=== PATIENT | female | born 1935 | race Hispanic/Latino ===

== ENCOUNTER 2019-12-02 11:24 | Inpatient (IN) | payer MEDICARE, SELFPAY ==
[~2019-12-02] VITALS: Ht 157.5 cm; Wt 41.9 kg
[~2019-12-02 11:24] MED LIST: ATORVASTATIN CA10 MG PO; COUMADIN1 MG PO; FUROSEMIDE40 MG PO; KLOR-CON M2020 MEQ PO; LANOXIN125 MCG PO; LANOXIN250 MCG PO; LORATADINE10 MG PO; METOPROLOL TART25 MG PO; NITRO-DUR1 EAC1 TD; NORVASC10 MG PO; VASOTEC5 MG PO; VITAMIN B-121000 MCG PO
--- OUTSIDE RECORDS SUMMARY | 2019-12-02 11:28 | XMS REPORT ---
Author Author [facility] t Organization [facility] Address [address] [place] [id number] Phone Unavailable Care Team Providers Care Esthetic Dermatologist Name Role Phone Be CAVAZOS, Lake PCP Kaveh DAVIS, John Mooney Attphys Unavailabl e Be AGENCY CASHIER, Lake Attphys Booker STONER, Thien Sin Attphys Migel STONER, Liseth Attphys Agustin Lucia MD, A Chano Attphys Stacy AGENCY CASHIER, G Myra Attphys Payers Payer Name Policy Type Policy Number Effective Date Expiration Date [place] [facility] [employer] xxxx2019-03/13/[id number] [place] [address] xxxxxxx 2019 00:00:00 03-13 23:59:59 [facility] Problems Condition Name Condition Details Condition Category Status Onset Date Resolution Date Last Treatment Date Treating Clinician Comments Source Esophagitis, erosive Esophagitis, erosive Disease Active 00:00:00 [facility] Abdominal bloating Abdominal bloating Disease Active 2017-01-15 00:00:0 0 [facility] H. pylori infection H. pylori infection Disease Active 2016-11-29 00:00 :00 [facility] Need for zoster vaccination Need for zoster vaccination Disease Active 2016-11-29 00:00:00 [facility] Acute diastolic CHF (congestive heart failure), NYHA c lass 2 Acute diastolic CHF (congestive heart failure), NYHA class 2 Disease Active 2016-11-24 00:00: 00 [facility] Bronchitis Bronchitis Disease Active 2016-11-15 00:00:00 [facility] GI bleed GI bleed Disease Active 2016-10-31 00:00:00 [facility] Hemorrhagic shock Hemorrhagic shock Disease Active 2016-10-03 00:00:00 [facility] Wheel chair as ambulatory aid Wheel chair as ambulatory aid Disease Active 2015-12-06 00:00:00 [facility] minoh Post-polypectomy bleeding Post-polypectomy bleeding Disease Ac tive 2015-11-17 00:00:00 [facility] Rectal/anal hemorrhage Rectal/anal hemorrhage Disease Active 2015-11-15 00:00:00 [facility] Lower GI bleed Lower GI bleed Disease Active 2015-11-14 00:00:00 [facility] Acute respiratory failure with hypoxia Acute respiratory vinod lure with hypoxia Disease Active 2015-07-16 00:00:00 [facility] Anemia Anemia Disease Active 2015-07-16 00:00:00 [facility] Hematuria Hematuria Disease Active 2015-07-16 00:00:00 [facility] S/P coronary angiogram S/P coronary angiogram Disease Active 2015-06-29 00:00:00 [facility] BV (bacterial vaginosis) BV (bacterial vaginosis) Disease Acti ve 2015-01-27 00:00:00 [facility] Acute diastolic CHF (congestive heart failure) Acute d iastolic CHF (congestive heart failure) Disease Active 2014-02-21 00:00:00 [facility] Hypertension Hypertension Disease Active 2014-02-21 00:00:00 [facility] Warfarin anticoagulation Warfarin anticoagulation Disease Acti ve 2014-02-21 00:00:00 [facility] Elevated troponin Elevated troponin Disease Active 2014-02-21 00:00:00 [facility] CAD (coronary artery disease) CAD (coronary artery disease) Disease Active 2014-02-20 00:00:00 [facility] Chest pain Chest pain Disease Active 2014-02-19 00:00:00 [facility] Cough Cough Disease Active 2014-02-19 00:00:00 [facility] HLD (hyperlipidemia) HLD (hyperlipidemia) Disease Active 00:00:00 [facility] Atrial fibrillation Atrial fibrillation Disease Active 2014-02-02 00:00 :00 [facility] Anticoagulation excessive Anticoagulation excessive Disease Ac tive 2014-02-02 00:00:00 [facility] Abnormal chest x-ray Abnormal chest x-ray Disease Active 00:00:00 [facility] Congestive heart failure (CHF) Congestive heart failure (CHF) Disea se Active 2014-02-01 00:00:00 [facility] Hypoxia Hypoxia Disease Active [facility] Iron deficiency Iron deficiency Disease Active [facility] Obesity Obesity Disease Active [facility] DJD (degenerative joint disease) of knee DJD (degenera tive joint disease) of knee Disease Active [facility] Abnormal CT of the head Abnormal CT of the head Disease Active Overview: sinusitis/mastoiditis/small vessel changes [facility] Occult blood positive stool Occult blood positive stool Disease Active [facility] DVT prophylaxis DVT prophylaxis Disease Active [facility] Anemia due to GI blood loss Anemia due to GI blood loss Disease Active [facility] Acute upper GI bleeding Acute upper GI bleeding Disease Active [facility] Duodenal ulcer Duodenal ulcer Disease Active [facility] Upper GI bleed Upper GI bleed Disease Active [facility] Blood transfusion during current hospitalization Blood transfusion during current hospitalization Disease Active [facility] Diverticulosis Diverticulosis Disease Active [facility] Hypoxemia Hypoxemia Disease Active [facility] Weakness Weakness Disease Active [facility] Allergies, Adverse Reactions, Alerts Allergy Name Allergy Type Status Severity Reaction(s) Onset Date Inacti ve Date Treating Clinician Comments Source Alendronate Propensity to adverse reactions to drug Active Breathing problems, Other 2017-10-17 00:00:00 The patient started fluid retention and SOB 2 weeks after taking fosamax. [facility] Family History Family Member Diagnosis Comments Start Date Stop Date Source Natural mother [facility] Social History Social Habit Start Date Stop Date Quantity Comments Source Sex Assigned At [facility] Exposure to SARS-CoV-2 (event) Not sure [facility] Alcohol intake 2019-11-10 00:00:00 2019-11-10 00:00:00 [facility] History SDOH Food Worry 2018-02-27 00:00:00 2018-02-27 00:00:00 1 [facility] SDOH Food Scarcity 2018-02-27 00:00:00 2018-02-27 00:00:00 1 [facility] Smoking Status Start Date Stop Date Source Never smoker [facility] Medications Ordered Medication Name Filled Medication Name Start Date Stop Da te Current Medication? Ordering Clinician Indication Dosage Frequency Signature (SIG) Comments Components Source aspirin 325 mg tablet 2019-11-10 14:47:11 Yes 325mg QD Take 325 mg by mouth daily. [facility] aspirin (ST AIMEE ASPIRIN) 81 mg chewable tablet 2019-11-10 14:47:03 2019-11-10 00:00:00 No 81mg QD Chew and swallow 81 mg by mouth daily. [facility] IRON OR 2019-11-10 14:43:04 2019-11-10 00:00:00 No 65mg Take 65 mg by mouth 3 times daily. [facility] vitamin B complex (B COMPLEX OR) 2019-11-10 14:37:14 Yes QD Take by mouth daily. [facility] MAGNESIUM OR 2019-11-10 14:21:52 Yes Take by mouth. [facility] calcium carbonate/vitamin D3 (CALCIUM WITH VITAMIN D3 OR) 2019-11-10 14:21:52 Yes 500mg Take 500 mg by mouth. [facility] ferrous sulfate 325 mg (65 mg iron) tablet 2019-11-10 14:21:52 Yes 325mg QD Take 325 mg by mouth daily (with breakfast). [facility] calcium carbonate/vitamin D3 (VITAMIN D-3 OR) 20 31-10-28 14:21:52 2019-11-10 00:00:00 No 2000U QD Take 2,000 Units by mouth daily . [facility] metoprolol succinate (TOPROL XL) 50 mg extended release tabl et 2019-11-10 00:00:00 Yes Chronic systolic congestive heart failur e 50mg QD Take 1 tablet by mouth daily. [facility] furosemide (LASIX) 20 mg tablet 2019-11-10 00:00:00 Yes Esophagitis, erosive Take 2 tablets by mo ut every morning and take 1 tablet every afternoon.. [facility] potassium chloride (KLOR-CON M10) 10 mEq extended release ta blet 2019-11-10 00:00:00 Yes Hypokalemia 10meq QD Take 1 tablet by mouth d ashlee. [facility] ofloxacin (OCUFLOX) 0.3 % ophthalmic solution 31-10-28 00:00:00 2019-11-27 23:59:00 No Bacterial conjunctivitis of left eye 2[drp] Instill 2 Drops in left eye 4 times daily for 10 days. [facility] fluticasone propion-salmeteroL (ADVAIR) 250-50 mcg/dose disk us inhaler 2019-11-03 00:00:00 Yes SOB (shortness of breath) 1{pu ff} Q.5D Inhale 1 Puff by mouth 2 times daily. [facility] potassium chloride (KLOR-CON M10) 10 mEq extended release ta blet 2019-07-05 00:00:00 2019-11-10 00:00:00 No Hypokalemia 10meq QD Take 1 tablet by mouth daily. [facility] metoprolol succinate (TOPROL XL) 50 mg extended release tabl et 2019-06-17 00:00:00 2019-11-10 00:00:00 No Chronic systolic amos estive heart failure 50mg QD Take 1 tablet by mouth daily. [facility] furosemide (LASIX) 20 mg tablet 2019-05-26 00:00:00 00:00:00 No Esophagitis, erosive Take 2 tablets by m outh every morning and take 1 tablet every afternoon.. [facility] atorvastatin (LIPITOR) 80 mg tablet 2019-05-12 00:00:00 Yes Mixed hyperlipidemia 80mg Take 1 tablet by mouth at bedtime nightly. [facility] ketoconazole (NIZORAL) 2 % topical cream 2019-05-12 00:00:00 Yes Onychomycosis of toenail Q.5D Apply to affect ed area 2 times daily The treatment may take up to 1 year.. [facility] metoprolol succinate (TOPROL XL) 50 mg extended release tabl et 2019-05-12 00:00:00 2019-06-17 00:00:00 No Chronic systolic amos estive heart failure 50mg QD Take 1 tablet by mouth daily. [facility] furosemide (LASIX) 20 mg tablet 2019-05-12 00:00:00 00:00:00 No Chronic systolic congestive heart failure Take 1 tablet by mouth every morning.. [facility] metoprolol succinate (TOPROL XL) 25 mg extended release tabl et 2019-05-12 00:00:00 2019-05-12 00:00:00 No Chronic systolic amos estive heart failure 25mg QD Take 1 tablet by mouth daily. [facility] furosemide (LASIX) 20 mg tablet 2019-05-12 00:00:00 00:00:00 No Esophagitis, erosive Take 1 tablet by mo uth every morning and every afternoon... [facility] tiotropium (SPIRIVA WITH HANDIHALER) 18 mcg inhalation capsu le 2019-04-20 15:05:13 2019-04-20 00:00:00 No 1{capsule} QD Inhale 1 capsule by mouth daily. [facility] Docusate Sodium 100 mg Tab 2019-04-20 15:05:13 2019-04-20 00:00: 00 No 1{tbl} Q.5D Take 1 tablet by mouth 2 times daily. [facility] diclofenac (VOLTAREN) 1 % gel 2019-04-20 00:00:00 Yes Chronic right shoulder pain 4g Apply 4 g to affected area 4 times daily [facility] acetaminophen (TYLENOL) 500 mg tablet 2019-04-20 00:00:00 Yes Chronic right shoulder pain 500mg Take 1 tablet by morgan th every 6 hours as needed for Pain. [facility] albuterol 90 mcg/actuation inhaler 2018-09-09 00:00:00 Y es Cough 2{puff} Inhale 2 Puffs by mouth every 4 hours as needed for Wheezing. [facility] potassium chloride (KLOR-CON M10) 10 mEq extended release ta blet 2018-09-09 00:00:00 2019-07-02 00:00:00 No Hypokalemia 10meq QD Take 1 tablet by mouth daily. [facility] furosemide (LASIX) 20 mg tablet 2018-09-09 00:00:00 00:00:00 No Esophagitis, erosive Take 2 tablets by m outh every morning and take 1 tablet every afternoon.. [facility] atorvastatin (LIPITOR) 80 mg tablet 2018-09-09 00:00:0 0 2019-05-12 00:00:00 No Mixed hyperlipidemia 80mg Take 1 tablet by mouth at b edtime nightly. [facility] metoprolol succinate (TOPROL XL) 25 mg extended release tabl et 2018-09-09 00:00:00 2019-05-12 00:00:00 No Chronic systolic amos estive heart failure 25mg QD Take 1 tablet by mouth daily. [facility] fluticasone propion-salmeterol (ADVAIR) 250-50 mcg/dose disk us inhaler 2018-08-19 00:00:00 2019-11-02 00:00:00 No SOB (shortness of breath) 1{puff} Q.5D Inhale 1 Puff by mouth 2 times daily. [facility] ketoconazole (NIZORAL) 2 % topical cream 2018-08 00:00:00 2019-05-12 00:00:00 No Onychomycosis of toenail QD Apply to affec giuseppe area daily. [facility] hydrocortisone-pramoxine (EPIFOAM) 1-1 % topical foam 2018-03-03 00:00:00 2019-04-20 00:00:00 No Hemorrhoids, unspecified hemorrhoi d type 1{applicator} Insert 1 Applicator rectally 3 times daily. [place] [employer] psyllium husk 0.4 gram cap 2018-02-27 00:00:00 2019-04-20 00 :00:00 No Constipation, unspecified constipation type 1{capsule} QD Take 1 capsule by mouth daily. [place] [employer] polyethylene glycol (GOLYTELY) 236-22.74-6.74 -5.86 gram ora l solution 2018-02-24 00:00:00 2019-04-20 00:00:00 No Occult blood positiv e stool Add lukewarm drinking water to the fill alley (4 liters) and shake. Drink as directed by your doctor.. [facility] omega 3-scf-agd-fish oil 100-160-1,000 mg cap 20 28-02-10 00:00:00 2019-04-20 00:00:00 No Elevated LDL cholesterol level 1{capsule} QD Take 1 capsule by mouth daily. [facility] azelastine (OPTIVAR) 0.05 % ophthalmic solution 2017-10-17 00:00:00 2019-04-20 00:00:00 No Acute allergic conjunctivitis, unspecifie d laterality 1[drp] Q.5D Instill 1 Drop in left eye 2 times daily. [facility] acetaminophen-codeine (TYLENOL/CODEINE #3) 300-30 mg per tab let 2017-09-17 00:00:00 2019-04-20 00:00:00 No Chronic pain of both knees 1{t bl} Take 1 tablet by mouth every 4 hours as needed for Pain. [facility] dexlansoprazole (DEXILANT) 30 mg delayed release capsule 2017-02-12 00:00:00 2019-04-20 00:00:00 No Esophagitis, erosive Take 1 capsule by mouth daily for 14 days after finishing the treatment for H. Pylori infection. 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 [facility] Calcium-Cholecalciferol, D3, (CALCIUM 600 + D) 600-125 mg-un it Tab 2016-11-16 00:00:00 2019-04-20 00:00:00 No Knee pain, right 1{tbl} QD Take 1 tablet by mouth daily. [facility] cyanocobalamin, vitamin B-12, (VITAMIN B-12) 1,000 mcg table t 2016-11-16 00:00:00 2019-04-20 00:00:00 No SOB (shortness of breath) 1000 ug QD Take 1 tablet by mouth daily. [facility] ferrous sulfate 325 mg (65 mg iron) tablet 11-16 00:00:00 2019-04-20 00:00:00 No SOB (shortness of breath) 325mg QD Take 1 tablet by mouth daily (with breakfast). [facility] Nebulizer & Compressor For Neb Carol Ann 2015-09-28 00:00:0 0 2019-04-20 00:00:00 No Asthmatic bronchitis, severe persistent, with acute ex acerbation 1{device} 1 Device by Misc.(Non-Drug; Combo Route) route 4 times daily. [facility] polyvinyl alcohol (AKWA TEARS, POLYVINYL ALCOHOL,) 1.4 % oph thalmic solution 2014-12-07 00:00:00 2019-04-20 00:00:00 No Bilateral dry eyes 1 [drp] Instill 1 Drop in each eye as needed for dry eye(s). [facility] atorvastatin (LIPITOR) 10 mg tablet 2014-04-08 00:00:00 Yes HLD (hyperlipidemia) 10mg Take 1 tablet by mouth at bedtime nightly [facility] furosemide (LASIX) 40 mg tablet 2014-02-25 00:00:00 Yes Congestive heart failure (CHF) 40mg Q.5D Take 1 tablet by mouth 2 times daily for 30 days. [facility] Immunizations Ordered Immunization Name Filled Immunization Name Date Status Comments Source Influenza, Vaccine<FLUCELVAX>(Multi-Dose) 2019-04-28 00:00 :00 Completed [facility] Herpes Zoster Vaccine In Clinic 2017-01-15 00:00:00 Sarah chin [facility] Tdap Tetanus, diphtheria, acellular pertussis Vaccine 2017-01-15 00:00:00 [facility] PCV 13 (Pnuemococcal Conjugated 13 Valent) 2016-10-06 00:0 0:00 Completed [facility] Influenza Vaccine 2015-05-19 00:00:00 Completed [facility] PPV 23 Pneumococcal Polysaccaride 2015-05-19 00:00:00 Comp leted [facility] Vital Signs Vital Name Observation Time Observation Value Comments Source Systolic blood pressure 2019-08-03 10:01:00 132 mm[Hg] [facility] Diastolic blood pressure 2019-08-03 10:01:00 62 mm[Hg] [facility] Heart rate 2019-08-03 10:01:00 64 /min [facility] Body temperature 2019-08-03 10:01:00 36.56 Constanza [facility] Respiratory rate 2019-08-03 10:01:00 18 /min [facility] Body height 2019-08-03 10:01:00 147.3 cm [facility] Body weight 2019-08-03 10:01:00 59.875 kg [facility] BMI 2019-08-03 10:01:00 27.59 kg/m2 [facility] Oxygen saturation in Arterial blood by Pulse oximetry 2018-07 15:28:00 97 /min [facility] Procedures Procedure Date / Time Performed Performing Clinician Sour e POCT BNP (B-TYPE NATRIURETIC PEPTIDE) 2019-06-17 18:30:00 [facility] ECHG EKG PROC 12 LEAD EKG; TRACING ONLY 2019-06-17 18:27:[address] [facility] 2019-06-17 18:27:00 [facility] TOTAL PROTEIN/CREATININE RATIO, URINE 2019-05-13 13:58:00 [facility] ANTI DSDNA BY CRITHIDIA 2019-05-13 13:37:00 Be Lakeandra Morris [facility] ANTIEXTRACTABLE NUCLEAR ANTIGENS 2019-05-13 13:37:00 [facility] SJOGREN'S AB 2019-05-13 13:37:00 [facility] h ANTICARDIO Andra,M,A 2019-05-13 13:37:[address] [facility] LUPUS ANTICOAGULANT PANEL 2019-05-13 13:37:00 [facility] THYROID STIMULATING HORMONE (TSH) 2019-05-13 13:37:00 Gurvinder Lr [facility] CK, TOTAL 2019-05-13 13:37:00 [facility] SED RATE 2019-05-13 13:37:[address] [facility] C-REACTIVE PROT 2019-05-13 13:37:[address] [facility] BETA-2 GLYCOPROTEIN 1 ANTIBODIES, IGG AND IGM 2019-05-13 13:37:0 0 [facility] COMPLEMENT C4 2019-05-13 13:37:[address] [facility] CREATINE KINASE MB (CKMB) 2019-05-13 13:37:00 [facility] LIVER PROFILE 2019-04-29 15:18:00 [facility] HEPATITIS PANEL 2019-04-29 15:18:00 [facility] SHELLYE 2019-04-29 15:18:[address] [facility] RA FACTOR 2019-04-29 15:18:[address] [facility] HCV RNA QUANT, PCR 2019-04-29 15:18:00 [facility] XRAY SPINE CER 2-3 AP- LAT- ODONTOID 2019-04-28 20:15:59 [facility] XRAY SHOULDER 2 VIEWS MIN 2019-04-28 20:15:59 [facility] XRAY SPINE LUMBOSACRAL AP-LAT 2019-04-28 20:15:59 [facility] LIPID PROFILE 2019-03-18 12:57:[address] [facility] COMPREHENSIVE METABOLIC PANEL 2019-03-18 12:57:00 Be [place] [facility] MAGNESIUM 2019-03-18 12:57:[address] [facility] Plan of Care Planned Activity Planned Date Details Comments Source Future Scheduled Test 2020-04-13 00:00:00 IMM Influenza Seas onal Apr to September (>/= 19 yrs) [code = IMM Influenza Seasonal Apr to September (>/= 19 yrs)] [facility] Future Scheduled Test 2020-03-18 00:00:00 CORONARY ARTERY DI SEASE AGE 18 AND UP [code = CORONARY ARTERY DISEASE AGE 18 AND UP] [facility] Encounters Start Date/Time End Date/Time Encounter Type Admission Type [facility] Care Department Encounter ID Source 2016-11-26 07:28:46 Inpatient [facility] [id number] [facility] 2016-11-25 13:42:34 Inpatient [facility] [id number] [facility] 2016-11-25 00:00:00 Inpatient [facility] [id number] [facility] 2016-11-24 05:14:52 Inpatient [facility] [id number] [facility] 2016-11-13 09:01:11 Inpatient [facility] [id number] [facility] 2016-10-04 12:45:42 Inpatient [facility] [id number] [facility] 2016-10-04 10:21:00 Inpatient [facility] [id number] [facility] 2016-10-04 00:00:00 Inpatient [facility] [id number] [facility] 2016-10-04 00:00:00 Inpatient [facility] [id number] [facility] 2016-10-03 12:47:53 Inpatient [facility] [id number] [facility] 2019-10-27 00:00:00 2019-10-27 00:00:00 Outpatient [facility] [id number] [facility] 2019-08-03 10:01:24 2019-08-03 10:01:24 Outpatient [facility] [id number] [facility] 2019-07-09 15:27:44 2019-07-09 15:27:44 Outpatient [facility] [id number] [facility] 2019-06-30 00:00:00 2019-06-30 00:00:00 Outpatient [facility] [id number] [facility] 2019-06-17 10:15:59 2019-06-17 10:15:59 Outpatient [facility] [id number] [facility] 2019-05-13 08:29:25 2019-05-13 08:29:25 Outpatient [facility] [id number] [facility] 2019-05-13 00:00:00 2019-05-13 00:00:00 Outpatient [facility] [id number] [facility] 2019-05-12 15:01:07 2019-05-12 15:01:07 Outpatient [facility] [id number] [facility] 2019-04-29 10:17:07 2019-04-29 10:17:07 Outpatient [facility] [id number] [facility] 2019-04-29 00:00:00 2019-04-29 00:00:00 Outpatient [facility] [id number] [facility] 2019-04-28 15:22:07 2019-04-28 15:22:07 Outpatient [facility] [id number] [facility] 2019-04-28 14:42:00 2019-04-28 14:42:00 Outpatient [facility] [id number] [facility] 2019-04-20 12:31:03 2019-04-20 12:31:03 Outpatient [facility] [id number] [facility] 2019-03-18 07:53:07 2019-03-18 07:53:07 Outpatient [facility] [id number] [facility] 2019-03-18 00:00:00 2019-03-18 00:00:00 Outpatient [facility] [id number] [facility] 2019-03-17 14:55:26 2019-03-17 14:55:26 Outpatient [facility] [id number] [facility] 2018-12-04 00:00:00 2018-12-04 00:00:00 Outpatient [facility] [id number] [facility] 2018-10-07 00:00:00 2018-10-07 00:00:00 Outpatient [facility] [id number] [facility] 2018-09-09 15:02:14 2018-09-09 15:02:14 Outpatient [facility] [id number] [facility] 2018-09-08 09:11:18 2018-09-08 09:11:18 Outpatient [facility] [id number] [facility] 2018-09-07 10:15:54 2018-09-07 10:15:54 Outpatient [facility] [id number] [facility] 2018-08-24 00:00:00 2018-08-24 00:00:00 Outpatient [facility] [id number] [facility] 2018-08-21 10:16:08 2018-08-21 10:16:08 Emergency [facility] [id number] [facility] 2018-08-21 10:04:42 2018-08-21 10:04:42 Inpatient [facility] [id number] [facility] 2018-08-20 00:50:15 2018-08-20 00:50:15 Emergency [facility] [id number] [facility] 2018-08-20 00:16:58 2018-08-20 00:16:58 Emergency [facility] [id number] [facility] 2018-08-19 11:07:23 2018-08-19 11:07:23 Outpatient [facility] [id number] [facility] 2018-05-22 00:00:00 2018-05-22 00:00:00 Outpatient [facility] [id number] [facility] 2018-04-29 00:00:00 2018-04-29 00:00:00 Outpatient [facility] [id number] [facility] 2018-02-27 08:00:27 2018-02-27 08:00:27 Outpatient [facility] [id number] [facility] 2018-02-24 11:39:42 2018-02-24 11:39:42 Outpatient [facility] [id number] [facility] 2018-02-20 14:55:30 2018-02-20 14:55:30 Outpatient [facility] [id number] [facility] 2018-02-20 13:22:12 2018-02-20 13:22:12 Outpatient [facility] [id number] [facility] 2017-11-19 12:59:41 2017-11-19 12:59:41 Outpatient [facility] [id number] [facility] 2017-10-17 12:34:22 2017-10-17 12:34:22 Outpatient [facility] [id number] [facility] 2017-10-17 09:51:17 2017-10-17 09:51:17 Outpatient [facility] [id number] [facility] 2017-09-19 11:01:57 2017-09-19 11:01:57 Outpatient [facility] [id number] [facility] 2017-09-18 08:35:02 2017-09-18 08:35:02 Outpatient [facility] [id number] [facility] 2017-09-17 13:25:42 2017-09-17 13:25:42 Outpatient [facility] [id number] [facility] 2017-09-11 09:38:52 2017-09-11 09:38:52 Outpatient [facility] [id number] [facility] 2017-02-12 15:13:21 2017-02-12 15:13:21 Outpatient [facility] [id number] [facility] 2017-01-23 07:56:40 2017-01-23 07:56:40 Outpatient [facility] [id number] [facility] 2017-01-15 13:27:42 2017-01-15 13:27:42 Outpatient [facility] [id number] [facility] 2016-12-27 13:10:13 2016-12-27 13:10:13 Outpatient [facility] [id number] [facility] 2016-12-13 00:00:00 2016-12-13 00:00:00 Outpatient [facility] [id number] [facility] 2016-12-04 00:00:00 2016-12-04 00:00:00 Outpatient [facility] [id number] [facility] 2016-11-29 14:52:05 2016-11-29 14:52:05 Outpatient [facility] [id number] [facility] 2016-11-29 13:52:11 2016-11-29 13:52:11 Outpatient [facility] [id number] [facility] 2016-11-29 00:00:00 2016-11-29 00:00:00 Outpatient [facility] [id number] [facility] 2016-11-25 11:36:26 2016-11-25 00:00:00 Inpatient [facility] [id number] [facility] 2016-11-25 00:00:00 2016-11-25 00:00:00 Outpatient [facility] [id number] [facility] 2016-11-24 10:31:55 2016-11-24 10:31:55 Emergency [facility] [id number] [facility] 2016-11-24 05:40:53 2016-11-24 05:40:53 Emergency [facility] [id number] [facility] 2016-11-14 10:57:13 2016-11-14 10:57:13 Outpatient [facility] [id number] [facility] 2016-11-13 15:04:38 2016-11-13 15:04:38 Emergency [facility] [id number] [facility] 2016-11-13 11:29:59 2016-11-13 11:29:59 Emergency [facility] [id number] [facility] 2016-10-03 14:16:59 2016-10-03 14:16:59 Emergency [facility] [id number] [facility] 2016-09-26 00:00:00 2016-09-26 00:00:00 Outpatient [facility] [id number] [facility] 2015-12-01 00:00:00 2015-12-01 00:00:00 Outpatient [facility] [id number] [facility] 2015-11-28 00:00:00 2015-11-28 00:00:00 Outpatient [facility] [id number] [facility] 2015-11-14 00:00:00 2015-11-14 00:00:00 Outpatient [facility] [id number] [facility] 2015-09-28 00:00:2015-09-28 00:00:00 Outpatient [facility] [id number] [facility] 2015-08-23 00:00:00 2015-08-23 00:00:00 Outpatient [facility] [id number] [facility] 2014-04-28 00:00:00 2014-04-28 00:00:00 Outpatient [facility] [id number] [facility] Results Test Description Test Time Test Comments Results Result Comments Source POCT BMP POC docked device 2019-06-17 12:59:00 Test Item Sodium POC (test code = 94811208) 138 mmol/L 136-145 Potassium POC (test code = 19028293) 3.9 mmol/L 3.5-5.1 Chloride POC (test code = 52866983) 98 mmol/L 98-107 TCO2 POC (test code = 68096120) 33 mmol/L 21-32 H Urea Nitrogen POC (test code = 39518416) 21 mg/dL 7-18 H Creatinine POC (test code = 25969055) 0.9 mg/dL 0.6-1.3 Glucose POC (test code = 12647138) 103 mg/dL 74-106 Ionized Calcium POC (test code = 98225477) 1.22 mmol/L 1.15-1.29 GFR, Estimated (test code = 07396496) 58 >=90 mL/min/1.73 m2 L Hemoglobin POC (test code = 74980056) 14.3 g/dL 12-16 Physician Notified Hematocrit POC (test code = 25448665) 42.0 % 37-47 Lab Interpretation (test code = 86673-4) [facility]normal [facility] (B-TYPE NATRIURETIC PEPTIDE) docked [id number] 12:59:00* Test Item Value Reference Range Interpretation Comments POC BNP (test code = 249163480) 209 pg/mL 0-100 H --- Lab Interpretation (test code = 03982-7) Abnormal [place] [address] LEAD [id number] 12:35:3512 LEAD EKG FOR [facility] Test Date: 5179-12-08Zbn Name: JOSE HEARN OR[place]O Department: [id number] ID: [id number] Room: Gender: F Box Icer: YURI RNDOB: 1935 Requested By: LISETH JOHN Order Number: [id number] [place] MD: Bebeto Sanchez MeasurementsIntervals Arverne Rate: 83 P: AL: 0 QRS: 34QRSD: 68 T: 70QT: 408 QTc: 481 Interpretive StatementsATRIAL FIBRILLATIONVOLTAGE CRITERIA FOR LVHST DEVIATION AND MODERATE T-WAVE ABNORMALITY, CONSIDER LATERAL ISCHEMIAElectronically Signed On 06-17-2019 12:35:30 COMPUTER SCIENTIST by Bebeto WooYakima Valley Memorial HospitalLupus Anticoagulant [id number] 11:55:00* Test Item Value Reference Range Interpretation Comments DRVV Screen Ratio (test code = 96006273) 0.96 0.00- 1.20 Ra patel PTT-LA Screen (test code = 09003088) 35.5 26.0- 40.0 Sec LA Interpretation (test code = 87345715) There is no e vidence of lupus anticoagulant by two screening tests (DRVV and PTT-LA). Unless there is a clinical suspicion, no further testing for LA is indicated. [facility] HealthAnticardiolipin Abs, IgA,IgG,IgM, [id number] 12:07:00* Test Item Value Reference Range Interpretation Comments Anticardiolipin Ab,IgG,Qn (test code = 3181-5) <9 0- [address] U/mL Negative: <15 Indeterminate: 15 - 20 Low-Med Positive: >20 - 80 High Positive: >80 Anticardiolipin Ab,IgM,Qn (test code = 3182-3) 10 0- [address] U/mL Negative: <13 Indeterminate: 13 - 20 Low-Med Positive: >20 - 80 High Positive: >80 Anticardiolipin Ab,IgA,Qn (test code = 5076-5) <9 0- [address] U/mL Negative: <12 Indeterminate: 12 - 20 Low-Med Positive: >20 - 80 High Positive: >80 SAGAR (test code = SAGAR) Performed at: [address] [place] [address] [id number] Director: Dafne Avalos MD, Phone: [phone] [facility] HealthSjgren's Antibodies (Anti-SS-A/Anti-SS-B)2019-05-16 12:07:00* Test Item Value Reference Range Interpretation Comments Sjogren's Anti-SS-A (test code = 81558-5) <0.2 0.0- 0.9 AI Sjogren's Anti-SS-B (test code = 35861-3) <0.2 0.0- 0.9 AI SAGAR (test code = SAGAR) Performed at: [facility] [id number] Director: Shahzad Arnold MD, Phone: [phone] [facility] HealthBeta-2 Glycoprotein 1 Antibodies, IgG and [id number] 12:07:00* Test Item Value Reference Range Interpretation Comments Beta-2 Glycoprotein I Ab, IgG (test code = 50254-0) <9 0- 20 GPI IgG units The reference interval reflects a 3SD or 99th percentile interval,which is thought to represent a potentially clinically significantresult in accordance with the International Consensus Statement onthe classification criteria for definitive antiphospholipid syndrome(APS). J Thromb Haem 2006;4:295-306. Beta-2 Glycoprotein I Ab, IgM (test code = 51872-8) <9 0- 32 GPI IgM units The reference interval reflects a 3SD or 99th percentile interval,which is thought to represent a potentially clinically significantresult in accordance with the International Consensus Statement onthe classification criteria for definitive antiphospholipid syndrome(APS). J Thromb Haem 2006;4:295-306. SAGAR (test code = SAGAR) Performed at: [address] [id number] Director: Dafne Avalos MD, Phone: [phone] [facility] HealthAntiextractable Nuclear Antigens(ENEDELIA - MONOMER RECOVERY OPERATOR Ab + Pedraza Ab)2019-05-16 12:07:00* Test Item Value Reference Range Interpretation Comments MONOMER RECOVERY OPERATOR Antibodies (test code = 90972-6) <0.2 0.0- 0.9 AI Pedraza Antibodies (test code = 82677-6) <0.2 0.0- 0.9 AI SAGAR (test code = SAGAR) Performed at: [address] [id number] Director: Shahzad Arnold MD, Phone: [phone] [facility] HealthAnti-dsDNA by Crithidia [id number] 23:25:00* Test Item Value Reference Range Interpretation Comments ANTI-DNA (DS) AB QN (test code = 83534141) Negative Negative Lab Interpretation (test code = 23130-5) Normal [facility] HealthTotal Protein/Creatinine Ratio, [id number] 22:38:00* Test Item Value Reference Range Interpretation Comments Creatinine, Urine (test code = 67600176) 61 mg/dL 20-320 Total Protein, Urine (test code = 03124219) 0.09 g/L <0.19 Total Protein/Creatinine Ratio, Urine (test code = 26944542) 0.1 % 0- 0.5 % Lab Interpretation (test code = 65554-3) Normal [facility] HealthSeesoeGZCW3180-31-54 15:43:00* Test Item Value Reference Range Interpretation Comments CKMB (test code = 22594642) 2.9 ng/mL CKMB Index (test code = 87451814) 2.[address] [facility]plement [id number] 15:14:00* Test Item Value Reference Range Interpretation Comments Complement C3 (test code = 40470857) 120.5 mg/dL 87-200 Lab Interpretation (test code = 17626-8) Normal [facility] HealthComplement [id number] 15:14:00* Test Item Value Reference Range Interpretation Comments Complement C4 (test code = 82636119) 32.7 mg/dL 19-52 Lab Interpretation (test code = 81255-6) Normal [facility], Total [Creatinine Kinase, Total]2019-05-13 15:14:00* Test Item Value Reference Range Interpretation Comments CK (test code = 87593324) 133 U/L 30-223 Lab Interpretation (test code = 40114-5) Normal [facility] HealthC-Reactive Xpctztk5339-15-17 15:14:00* Test Item Value Reference Range Interpretation Comments C-Reactive Protein (test code = 77036580) <0.2 <10.0 mg/dL Lab Interpretation (test code = 92522-4) Normal [facility] HealthTSH [Thyroid Stimulating Hormone]2019-05-13 15:10:00* Test Item Value Reference Range Interpretation Comments TSH (test code = 46678641) 2.75 0.45- 5.33 uIU/mL If , please see the following reference ranges (not verified by lab): 1st Trimester: 0.05 -3.70 uIU/mL2nd Trimester: 0.31 -4.35 uIU/mL3rd Trimester: 0.41 - 5.18 uIU/mL Lab Interpretation (test code = 18164-8) Normal [facility] HealthSED [id number] 14:52:00* Test Item Value Reference Range Interpretation Comments Sed Rate (test code = 86796187) 17 0-<30 mm/Hr Lab Interpretation (test code = 29533-7) Normal [facility] HealthHCV RNA Quantitative, [id number] 22:35:00* Test Item Value Reference Range Interpretation Comments HCV RNA Quant, PCR (test code = 30767-1) Not detected Not detected IU/mL SAGAR (test code = SAGAR) This test utilizes FDA clear ed TRAM AmpliPrep/TRAM TaqMan HCV test, v2.0 from [employer] which allows quantitation of viral loads between 15 copies/mL and 10,000,000 of plasma. When the result is positive but <15 copies/mL of HCV RNA, the test will be reported as detected but less than 15 copies/mL". The TRAM AmpliPrep/ TRAM TaqMan HCV test, v2.0 is not intended for use as a screening test for the presence of HCV RNA in blood or as a diagnostic test to confirm the presence of HCV infection. This test is intended for use as an aid in the management of patients with HCV infection. Lab Interpretation (test code = 85184-0) Normal [facility] [id number] 05:40:00* Test Item Value Reference Range Interpretation Comments SHELLEY Screen (test code = 59674251) Positive Negative A SHELLEY Titer (test code = 53577174) 1:160 None detected Titer H SHELLEY Pattern (test code = 07005818) Speckled (none) Pattern A Lab Interpretation (test code = 12203-0) Abnormal [facility] HealthHepatitis [id number] 23:52:00* Test Item Value Reference Range Interpretation Comments Hep C Vir Ab IgG (test code = 31462-6) Positive Negative A Hep B Surface Ag (test code = 5196-1) Negative Negative Hep A Vir Ab IgM (test code = 57835-9) Negative Negative Hep B Core Ab IgM (test code = 01775-4) Negative Negative Lab Interpretation (test code = 87418-6) Abnormal [facility] HealthRA [id number] 07:06:00* Test Item Value Reference Range Interpretation Comments RA (test code = 87430219) <10 <14 IU/mL Lab Interpretation (test code = 60027-9) Normal [facility] [id number] 07:05:00* Test Item Value Reference Range Interpretation Comments Bilirubin, Total (test code = 2885-2) 0.9 mg/dL 0.2-1.2 Alkaline Phosphatase (test code = 65228622) 123 U/L 34-104 H AST (test code = 66900830) 23 U/L 13-39 Direct Bilirubin (test code = 1968-7) 0.2 mg/dL 0-0.2 ALT (test code = 56042323) 19 U/L 7-52 Albumin (test code = 04864-8) 4.3 g/dL 3.7-5.3 Lab Interpretation (test code = 27028-7) Abnormal [facility]XRAY SPINE LUMBOSACRAL [id number] 16:12:39IMPRESSION: 1. Moderate degenerative changes of the thoracolumbar spine.2. Grade 1 anterolisthesis of L5.3. Chronic compression deformity fractures of T12, L2, and L4 vertebralbodies. This [facility] radiology report is a preliminary resident dictation untilfinalized by an attending. Changes to this preliminary report m ay occurin an additional preliminary or finalized version. Dictated By: Rick Issa MD, 04/28/2019 3:54 PM I have reviewed the study and agree with the findings in this report. Signed By: Brenda Lundberg MD, 04/28/2019 4:12 PM Joshua Dupree/Petar In - 04/28/2019 4:17 PM CDTEXAM: XR LUMBAR SPINE 3 VIEWSDA TE: 04/28/2019 3:16 PM INDICATION: low back pain without sciatica. Chronic bila teral low backpain without sciatica COMPARISON: NoneTECHNIQUE: AP, coned latera l and lateral radiographs of the lumbarspineFINDINGS: 5 lumbar type, non-rib fabio ring vertebral bodies are present.Compression deformity fractures are noted rachell g T12, L2, and L4. Thesefractures are likely chronic in nature. There is degener ative discdisease is noted at the level of L5-S1, with grade 1 anterolisthesis o fL5. Otherwise, the disc spaces are preserved. Multilevel facet jointarthropathy and osteophytosis is noted along the visualizedthoracolumbar spine. Diffuse ost eopenia is once again noted, along withextensive vascular and costochondral calc ifications. The visualized softtissues are unremarkable.IMPRESSIONIMPRESSION: 1 . Moderate degenerative changes of the thoracolumbar spine.2. Grade 1 anteroli sthesis of L5.3. Chronic compression deformity fractures of T12, L2, and L4 vicente tebralbodies.This [facility] radiology report is a preliminary resident dictation unti lfinalized by an attending. Changes to this preliminary report may occurin an a dditional preliminary or finalized version.Dictated By: Ethan Issa MD, 04/28/2019 3:54 PMI have reviewed the study and agree with the findings in this report.Signed By: Brenda Lundberg MD, 04/28/2019 4:12 PMProv[facility] HealthXRAY SPINE CER 2-3 AP- LAT- [id number] 16:12:37IMPRESSION: 1. Diffuse osteopenia.2. Mild degenerative changes of the cervical spine. This [facility] radiology report is a preliminary resident dictation untilfinalized by an attending. Changes to this preliminary report may occurin an additional preliminary or finalized version. Dictated By: Ethan Issa MD, 3:49 PM I have reviewed the study and agree with the findings in this r eport. Signed By: Brenda Lundberg MD, 04/28/2019 4:12 PM Interface, Rad/Boom silverman In - 04/28/2019 4:17 PM CDTEXAM: XR CERVICAL SPINE 3 VIEWSDATE: 04/28/2019 3 :16 PM INDICATION: back of neck pain. Acute neck pain COMPARISON: NoneTECHNIQUE: AP, open mouth odontoid and lateral views of the cervicalspine show from the s kull base through T1.DISCUSSION: Vertebral body heights, disc heights and alignm ent areoverall preserved. No prevertebral or paraspinous soft tissueabnormality is identified. Diffuse osteopenia is noted. Patient isrotated, which partially l imits full evaluation. Small osteophyte notedalong the anteroinferior aspect of C5. Mild facet arthropathy is notedalong the left cervical spine. IMPRESSIONIMPR ESSION: 1. Diffuse osteopenia.2. Mild degenerative changes of the cervical sp ine.This [facility] radiology report is a preliminary resident dictation untilfinalize d by an attending. Changes to this preliminary report may occurin an additional preliminary or finalized version.Dictated By: Ethan Issa MD, 04/28/20 19 3:49 PMI have reviewed the study and agree with the findings in this report.S igned By: Brenda Lundberg MD, 04/28/2019 4:12 PMSaint Louis HealthXRAY SHOULDER 2 VIEWS [id number] 15:39:56IMPRESSION: No acute abnormality. Glenohumeral degenerative changes arepresent. Signed By: Brenda Lundberg MD, 04/28/2019 3:39 PM Interface, Rad/Mammog In - 04/28/2019 3:45 PM CDTEXAM: XR RIGHT SHOULDER 3 VIEWS DATE: 04/28/2019 3:16 PM INDICATION: right shoulder pain for the last 2 weeks. Acute pain ofright shoulder COMPARISON: None availableTECHNIQUE: AP views in internal and external rotation, and a scapular Yview of the shoulderDISCUSSION: No acute fracture or malalignment is identified. There isno subacromial narrowing. No soft tissue abnormality is identified.IMPRESSIONIMPRESSION: No acute abnormality. Glenohumeral deg enerative changes arepresent.Signed By: Brenda Lundberg MD, 04/28/2019 3:39 P [facility]
--- NOTE | 2019-12-02 13:13 | Emergency Department Note ---
History of Present Illnes History of Present Illness Chief Complaint: General Medicine Complaints History of Present Illness This is a 84 year old female hard of hearing, arrived to the ED with daughter- daughter states pt has been having bloody stools and has noticed bloody vomiting. . 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 Any updates have been documented here. Past Medical History Recent Fever: No Clinical Suspicion of Infectio: No New/Unexplained Change in Ment: No Past Medical History: Hypertension, CHF, CAD, Hyperlipedemia Other Medical History: blood clot Past Surgical History: None Social History Smoking Cessation: Never Smoker Alcohol Use: None Any Illegal Drug Use: No TB Exposure/Symptoms: No Family History Family history of heart diseas: No Other Last Tetanus: unknown Any Pre-Existing Lines (PICC,: No Review of Systems Review of Systems Constitutional: weakness EENTM: no symptoms Cardiovascular: no symptoms Respiratory: other (sob ) Gastrointestinal: abdominal pain, other (spitting up blood ) Genitourinary: no symptoms Musculoskeletal: no symptoms Neurological: no symptoms Psychological: no symptoms Endocrine: no symptoms Hematological/Lymphatic: no symptoms Review of other systems All other systems reviewed and negative. Physical Exam Related Data Allergies: Coded Allergies: loratadine (Verified Allergy, Mild, 03/04/15) Triage Vital Signs Vital Signs Date Time Temp Pulse Resp B/P (MAP) Pulse Ox O2 Delivery O2 Flow Rate FiO2 12/02/19 11:43 97.7 93 16 116/65 95 Vital signs reviewed: Yes Physical Exam CONSTITUTIONAL Constitutional: well-developed, cachectic HENT HENT: normocephalic, atraumatic, mucosae dry, nose normal HENT L/R: left ext ear normal, right ext ear normal EYES Eyes: PERRL, conjunctivae normal NECK Neck: ROM normal PULMONARY Pulmonary: effort normal, breath sounds normal CARDIOVASCULAR Cardiovascular: regular rhythm, heart sounds normal, capillary refill normal, normal rate GASTROINTESTINAL Abdominal: tender (mild diffuse tenderness ), other (c/o generalized abd pain and spitting up blood ) GENITOURINARY Genitourinary: exam deferred SKIN Skin: warm, dry MUSCULOSKELETAL Musculoskeletal: ROM normal NEUROLOGICAL Neurological: alert, no gross motor or sensory deficits; oriented x 3 PSYCHOLOGICAL Psychological: mood/affect normal, judgement normal Results Laboratory Laboratory Laboratory Tests Test 12/02/19 13:10 White Blood Count 8.07 x10e3/uL (4.8-10.8) Red Blood Count 1.76 x10e6/uL (3.6-5.1) Hemoglobin 5.9 g/dL (12.0-16.0) Hematocrit 18.3 % (34.2-44.1) Mean Corpuscular Volume 104.0 fL (81-99) Mean Corpuscular Hemoglobin 33.5 pg (28-32) Mean Corpuscular Hemoglobin Concent 32.2 g/dL (31-35) Red Cell Distribution Width 20.1 % (11.7-14.4) Platelet Count 195 x10e3/uL (140-360) Neutrophils (%) (Auto) 81.5 % (38.7-80.0) Lymphocytes (%) (Auto) 11.4 % (18.0-39.1) Monocytes (%) (Auto) 5.9 % (4.4-11.3) Eosinophils (%) (Auto) 0.0 % (0.0-6.0) Basophils (%) (Auto) 0.2 % (0.0-1.0) Neutrophils # (Auto) 6.6 (2.1-6.9) Lymphocytes # (Auto) 0.9 (1.0-3.2) Monocytes # (Auto) 0.5 (0.2-0.8) Eosinophils # (Auto) 0.0 (0.0-0.4) Basophils # (Auto) 0.0 (0.0-0.1) Absolute Immature Granulocyte (auto 0.08 x10e3/uL (0-0.1) Lab results reviewed: Yes Imaging Impressions Procedure: [id number] DX/CHEST SINGLE (PORTABLE) Exam Date: 12/02/19 Exam Time: 1310 REPORT STATUS: Signed X-ray chest frontal view History: Shortness of breath abdominal pain spit-up Comparison: None Findings: Portable study. Central airways unremarkable. Heart size borderline. Atherosclerotic aorta. No definite pleural effusion or pneumothorax. A 2.3 cm round opacity overlying the right lower lung zone. It has discrete margins and could be situated outside the lung. When possible a chest CT should be obtained to further characterize this nodule. Degenerative changes in the shoulders right much more than left. Upper abdomen poorly visualized. Old healed fractures of the right posterior rib. Impression: No acute pulmonary disease. Nodular opacity in the right lower lung zone. Please see above. A chest CT may be considered when possible. Signed by: Lizzie Evangelista MD on 12/02/2019 1:31 PM Dictated By: LIZZIE EVANGELISTA MD 1331 Transcribed By: DEE DEE on 12/02/19 1331 COPY TO: CHERELLE DEMARCO DO~ Critical Care Time Subsequent provider I assumed direction of critical care for this patient from another provider of my specialty. Assessment & Plan Reassessment Reassessment 84y f presented to ed c/o - abd pain spitting up blood for several days. Daughter also states she has seen bloody stools Assessment & Plan Final Impression: (1) GI bleed (2) Anemia Assessment & Plan -cbc, cmp, inr -microcytic anemia - 2 units PRBCS -PPI -GI consult -admission discussed lab results plan of care and need for admit spoke w/ Dr Alejandro will admit Depart Disposition: ADMITTED Last Vital Signs Date Time Temp Pulse Resp B/P (MAP) Pulse Ox O2 Delivery O2 Flow Rate FiO2 12/02/19 11:43 97.7 93 16 116/65 95 Home Meds Active Scripts Nitroglycerin (NITRO-DUR) 1 Each Patch.td24, 0.2 PATCH TD DAILY, #14 Prov:KATTY FREDERICK MD 04/26/14 Potassium Chloride (KLOR-CON M20) 20 Meq Tabcr, 20 MEQ PO BID, #60 Prov:KATTY FREDERICK MD 04/26/14 Reported Medications Loratadine (LORATADINE) 10 Mg Tablet, 10 MG PO DAILY, #30 TAB 03/04/15 Cyanocobalamin (VITAMIN B-12) 1,000 Mcg Tab, 1000 MCG PO DAILY, #30 TAB 03/04/15 Digoxin (LANOXIN) 250 Mcg Tablet, 125 MCG PO FRI-FRI, #30 TAB 03/04/15 Furosemide (FUROSEMIDE) 40 Mg Tablet, 40 MG PO BID, #30 TAB 03/04/15 Enalapril Maleate (VASOTEC) 5 Mg Tab, 5 MG PO DAILY, #30 TAB 09/19/14 Warfarin Sodium (COUMADIN) 1 Mg Tablet, 1 MG PO DAILY, TAB Take 4 tablets on Friday, Friday, Friday. Take 3 tablets on Friday, Friday, , Friday. 09/19/14 Metoprolol Tartrate (METOPROLOL TARTRATE) 25 Mg Tablet, 25 MG PO BID, TAB 04/25/14 Atorvastatin Calcium (ATORVASTATIN CALCIUM) 10 Mg Tablet, 10 MG PO DAILY, #30 TAB 04/25/14 CHERELLE DEMARCO DO December 02, 2019 13:13
[2019-12-02 13:30] LABS: BASOPHILS % 0.2 % (0.0-1.0); LYMPHOCYTES # (AUTO) 0.9 (1.0-3.2); LYMPHOCYTES % 11.4 % (18.0-39.1); MEAN CORPUSCULAR HEMOGLOBIN 33.5 pg (28-32); MEAN CORPUSCULAR HGB CONC 32.2 g/dL (31-35); MONOCYTES # (AUTO) 0.5 (0.2-0.8); MONOCYTES % 5.9 % (4.4-11.3); NEUTROPHILS # (AUTO) 6.6 (2.1-6.9); NEUTROPHILS % 81.5 % (38.7-80.0); PLATELET COUNT 195 x10e3/uL (140-360); RED BLOOD COUNT 1.76 x10e6/uL (3.6-5.1); RED CELL DISTRIBUTION WIDTH 20.1 % (11.7-14.4)
[2019-12-02 13:32] LABS: HEMATOCRIT 18.3 % (34.2-44.1); HEMOGLOBIN 5.9 g/dL (12.0-16.0)
--- NOTE | 2019-12-02 13:34 | Diagnostic Imaging Report ---
X-ray chest frontal view History: Shortness of breath abdominal pain spit-up Comparison: None Findings: Portable study. Central airways unremarkable. Heart size borderline. Atherosclerotic aorta. No definite pleural effusion or pneumothorax. A 2.3 cm round opacity overlying the right lower lung zone. It has discrete margins and could be situated outside the lung. When possible a chest CT should be obtained to further characterize this nodule. Degenerative changes in the shoulders right much more than left. Upper abdomen poorly visualized. Old healed fractures of the right posterior rib. Impression: No acute pulmonary disease. Nodular opacity in the right lower lung zone. Please see above. A chest CT may be considered when possible. Signed by: Daniel Rivero MD on 12/02/2019 1:31 PM
[2019-12-02] MEDS ORDERED: PANTOPRAZOLE 40 MG 10ML VIAL IV STA (13:42)
[2019-12-02] MEDS ORDERED: SODIUM CHLORIDE 0.9% 250ML 250 ML IV ONE (13:45)
[2019-12-02 13:50] LABS: ALANINE AMINOTRANSFERASE 17 IU/L (0-55); ALBUMIN 3.5 g/dL (3.5-5.0); ALBUMIN/GLOBULIN RATIO 1.2 (0.8-2.0); ALKALINE PHOSPHATASE 86 IU/L (40-150); ANION GAP 16.6 mmol/L (8-16); BLOOD UREA NITROGEN 19 mg/dL (7-26); BUN/CREATININE RATIO 22 (6-25); CALCIUM 9.5 mg/dL (8.4-10.2); CARBON DIOXIDE 27 mmol/L (22-29); CHLORIDE 92 mmol/L (98-107); CREATINE KINASE 189 IU/L (29-168); CREATININE, SERUM 0.88 mg/dL (0.57-1.11); EST GLOMERULAR FILTRATION RATE > 60 ML/MIN (60-); GLUCOSE 113 mg/dL (74-118); POTASSIUM 3.6 mmol/L (3.5-5.1); SODIUM 132 mmol/L (136-145)
--- OUTSIDE RECORDS SUMMARY | 2019-12-02 14:42 | XMS REPORT ---
Author Author [facility] t Organization [facility] Address [address] [place]. 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 Problems Condition Name Condition Details Condition Category Status Onset Date Resolution Date Last Treatment Date Treating Clinician Comments Source Esophagitis, erosive Esophagitis, erosive Disease Active 00:00:[address] [facility] Abdominal bloating Abdominal bloating Disease Active 2017-01-15 00:00:[address] [facility] H. pylori infection H. pylori infection Disease Active 2016-11-29 00:00 :[address] [facility] Need for zoster vaccination Need for zoster vaccination Disease Active 2016-11-29 00:00:00 [facility] Acute diastolic CHF (congestive heart failure), NYHA c lass 2 Acute diastolic CHF (congestive heart failure), NYHA class 2 Disease Active 2016-11-24 00:00: [address] [facility] Bronchitis Bronchitis Disease Active 2016-11-15 00:00:[address] [facility] GI bleed GI bleed Disease Active 2016-10-31 00:00:[address] [facility] Hemorrhagic shock Hemorrhagic shock Disease Active 2016-10-03 00:00:[address] [facility] Wheel chair as ambulatory aid Wheel chair as ambulatory aid Disease Active 2015-12-06 00:00:00 [facility] Post-polypectomy bleeding Post-polypectomy bleeding Disease Ac tive 2015-11-17 00:00:[address] [facility] Rectal/anal hemorrhage Rectal/anal hemorrhage Disease Active 2015-11-15 00:00:[address] [facility] Lower GI bleed Lower GI bleed Disease Active 2015-11-14 00:00:[address] [facility] Acute respiratory failure with hypoxia Acute respiratory vinod lure with hypoxia Disease Active 2015-07-16 00:00:[address] [facility] Anemia Anemia Disease Active 2015-07-16 00:00:[address] [facility] Hematuria Hematuria Disease Active 2015-07-16 00:00:[address] [facility] S/P coronary angiogram S/P coronary angiogram Disease Active 2015-06-29 00:00:[address] [facility] BV (bacterial vaginosis) BV (bacterial vaginosis) Disease Acti ve 2015-01-27 00:00:[address] [facility] Acute diastolic CHF (congestive heart failure) Acute d iastolic CHF (congestive heart failure) Disease Active 2014-02-21 00:00:[address] [facility] Hypertension Hypertension Disease Active 2014-02-21 00:00:[address] [facility] Warfarin anticoagulation Warfarin anticoagulation Disease Acti ve 2014-02-21 00:00:[address] [facility] Elevated troponin Elevated troponin Disease Active 2014-02-21 00:00:[address] [facility] CAD (coronary artery disease) CAD (coronary artery disease) Disease Active 2014-02-20 00:00:00 [facility] Chest pain Chest pain Disease Active 2014-02-19 00:00:[address] [facility] Cough Cough Disease Active 2014-02-19 00:00:[address] [facility] HLD (hyperlipidemia) HLD (hyperlipidemia) Disease Active 00:00:[address] [facility] Atrial fibrillation Atrial fibrillation Disease Active 2014-02-02 00:00 :[address] [facility] Anticoagulation excessive Anticoagulation excessive Disease Ac tive 2014-02-02 00:00:[address] [facility] Abnormal chest x-ray Abnormal chest x-ray Disease Active 00:00:[address] [facility] Congestive heart failure (CHF) Congestive heart failure (CHF) Disea se Active 2014-02-01 00:00:00 [facility] ealth Hypoxia Hypoxia Disease Active [facility] Iron deficiency Iron deficiency Disease Active [facility] Obesity Obesity Disease Active [facility] DJD (degenerative joint disease) of knee DJD (degenera tive joint disease) of knee Disease Active [facility] Abnormal CT of the head Abnormal CT of the head Disease Active Overview: sinusitis/mastoiditis/small vessel changes [facility] Occult blood positive stool Occult blood positive stool Disease Active [facility] DVT prophylaxis DVT prophylaxis Disease Active [facility] Anemia due to GI blood loss Anemia due to GI blood loss Disease Active [facility] Acute upper GI bleeding Acute upper GI bleeding Disease Active [facility] Duodenal ulcer Duodenal ulcer Disease Active [facility] Upper GI bleed Upper GI bleed Disease Active [facility] Blood transfusion during current hospitalization Blood transfusion during current hospitalization Disease Active [facility] Diverticulosis Diverticulosis Disease Active [facility] Hypoxemia Hypoxemia Disease Active [facility] Weakness Weakness Disease Active [facility] Allergies, Adverse Reactions, Alerts Allergy Name Allergy Type Status Severity Reaction(s) Onset Date Inacti ve Date Treating Clinician Comments Source Alendronate Propensity to adverse reactions to drug Active Breathing problems, Other 2017-10-17 00:00:00 The patient started fluid retention and SOB 2 weeks after taking fosamax. [facility] Family History Family Member Diagnosis Comments Start Date Stop Date Source Natural mother [facility] Social History Social Habit Start Date Stop Date Quantity Comments Source Sex Assigned At [facility] Exposure to SARS-CoV-2 (event) Not sure [facility] Alcohol intake 2019-11-10 00:00:00 2019-11-10 00:00:[address] [facility] History SDOH Food Worry 2018-02-27 00:00:00 2018-02-27 00:00:00 1 [facility] Food Scarcity 2018-02-27 00:00:00 2018-02-27 00:00:[address] [facility] Smoking Status Start Date Stop Date Source Never smoker [facility] Medications Ordered Medication Name Filled Medication Name Start Date Stop Da te Current Medication? Ordering Clinician Indication Dosage Frequency Signature (SIG) Comments Components Source aspirin 325 mg tablet 2019-11-10 14:47:11 Yes 325mg QD Take 325 mg by mouth daily. [facility] aspirin (ST AIMEE ASPIRIN) 81 mg chewable tablet 2019-11-10 14:47:03 2019-11-10 00:00:00 No 81mg QD Chew and swallow 81 mg by mouth daily. [facility] IRON OR 2019-11-10 14:43:04 2019-11-10 00:00:00 No 65mg Take 65 mg by mouth [address] [facility] vitamin B complex (B COMPLEX OR) 2019-11-10 14:37:14 Yes QD Take by mouth daily. [facility] MAGNESIUM OR 2019-11-10 14:21:52 Yes Take by mouth. [facility] calcium carbonate/vitamin D3 (CALCIUM WITH VITAMIN D3 OR) 2019-11-10 14:21:52 Yes 500mg Take 500 mg by mouth. [facility] ferrous sulfate 325 mg (65 mg iron) tablet 2019-11-10 14:21:52 Yes 325mg QD Take 325 mg by mouth daily (with breakfast). [facility] calcium carbonate/vitamin D3 (VITAMIN D-3 OR) 20 31-10-28 14:21:52 2019-11-10 00:00:00 No 2000U QD Take 2,000 Units by mouth daily . [facility] metoprolol succinate (TOPROL XL) 50 mg extended release tabl et 2019-11-10 00:00:00 Yes Chronic systolic congestive heart failur e 50mg QD Take 1 tablet by mouth daily. [facility] furosemide (LASIX) 20 mg tablet 2019-11-10 00:00:00 Yes Esophagitis, erosive Take 2 tablets by mo ut every morning and take 1 tablet every afternoon.. [facility] potassium chloride (KLOR-CON M10) 10 mEq extended release ta blet 2019-11-10 00:00:00 Yes Hypokalemia 10meq QD Take 1 tablet by mouth d aily. [facility] ofloxacin (OCUFLOX) 0.3 % ophthalmic solution 31-10-28 00:00:00 2019-11-27 23:59:00 No Bacterial conjunctivitis of left eye 2[drp] Instill 2 Drops in left eye 4 times daily for 10 days. [facility] fluticasone propion-salmeteroL (ADVAIR) 250-50 mcg/dose disk us inhaler 2019-11-03 00:00:00 Yes SOB (shortness of breath) 1{pu ff} Q.5D Inhale 1 Puff by mouth [address] [facility] potassium chloride (KLOR-CON M10) 10 mEq extended release ta blet 2019-07-05 00:00:00 2019-11-10 00:00:00 No Hypokalemia 10meq QD Take 1 tablet by mouth daily. [facility] metoprolol succinate (TOPROL XL) 50 mg extended release tabl et 2019-06-17 00:00:2019-11-10 00:00:00 No Chronic systolic amos estive heart failure 50mg QD Take 1 tablet by mouth daily. [facility] furosemide (LASIX) 20 mg tablet 2019-05-26 00:00:00 00:00:00 No Esophagitis, erosive Take 2 tablets by m outh every morning and take 1 tablet every afternoon.. [facility] atorvastatin (LIPITOR) 80 mg tablet 2019-05-12 00:00:00 Yes Mixed hyperlipidemia 80mg Take 1 tablet by mouth at bedtime nightly. [facility] ketoconazole (NIZORAL) 2 % topical cream 2019-05-12 00:00:00 Yes Onychomycosis of toenail Q.5D Apply to affect ed area 2 times daily The treatment may take up to [address] [facility] metoprolol succinate (TOPROL XL) 50 mg extended release tabl et 2019-05-12 00:00:00 2019-06-17 00:00:00 No Chronic systolic amos estive heart failure 50mg QD Take 1 tablet by mouth daily. [facility] furosemide (LASIX) 20 mg tablet 2019-05-12 00:00:00 00:00:00 No Chronic systolic congestive heart failure Take 1 tablet by mouth every morning.. [facility] metoprolol succinate (TOPROL XL) 25 mg extended release tabl et 2019-05-12 00:00:00 2019-05-12 00:00:00 No Chronic systolic amos estive heart failure 25mg QD Take 1 tablet by mouth daily. [facility] furosemide (LASIX) 20 mg tablet 2019-05-12 00:00:00 00:00:00 No Esophagitis, erosive Take 1 tablet by mo uth every morning and every afternoon... [facility] tiotropium (SPIRIVA WITH HANDIHALER) 18 mcg inhalation capsu le 2019-04-20 15:05:13 2019-04-20 00:00:00 No 1{capsule} QD Inhale 1 capsule by mouth daily. [facility] Docusate Sodium 100 mg Tab 2019-04-20 15:05:13 2019-04-20 00:00: 00 No 1{tbl} Q.5D Take 1 tablet by mouth [address] [facility] diclofenac (VOLTAREN) 1 % gel 2019-04-20 00:00:00 Yes Chronic right shoulder pain 4g Apply 4 g to affected area [address] [facility] acetaminophen (TYLENOL) 500 mg tablet 2019-04-20 00:00:00 Yes Chronic right shoulder pain 500mg Take 1 tablet by morgan th every 6 hours as needed for Pain. [facility] albuterol 90 mcg/actuation inhaler 2018-09-09 00:00:00 Y es Cough 2{puff} Inhale 2 Puffs by mouth every 4 hours as needed for Wheezing. [facility] potassium chloride (KLOR-CON M10) 10 mEq extended release ta blet 2018-09-09 00:00:00 2019-07-02 00:00:00 No Hypokalemia 10meq QD Take 1 tablet by mouth daily. [facility] furosemide (LASIX) 20 mg tablet 2018-09-09 00:00:00 00:00:00 No Esophagitis, erosive Take 2 tablets by m outh every morning and take 1 tablet every afternoon.. [facility] atorvastatin (LIPITOR) 80 mg tablet 2018-09-09 00:00:0 0 2019-05-12 00:00:00 No Mixed hyperlipidemia 80mg Take 1 tablet by mouth at b edtime nightly. [facility] metoprolol succinate (TOPROL XL) 25 mg extended release tabl et 2018-09-09 00:00:00 2019-05-12 00:00:00 No Chronic systolic amos estive heart failure 25mg QD Take 1 tablet by mouth daily. [facility] fluticasone propion-salmeterol (ADVAIR) 250-50 mcg/dose disk us inhaler 2018-08-19 00:00:00 2019-11-02 00:00:00 No SOB (shortness of breath) 1{puff} Q.5D Inhale 1 Puff by mouth [address] [facility] ketoconazole (NIZORAL) 2 % topical cream 2018-08 00:00:00 2019-05-12 00:00:00 No Onychomycosis of toenail QD Apply to affec giuseppe area daily. [facility] hydrocortisone-pramoxine (EPIFOAM) 1-1 % topical foam 2018-03-03 00:00:00 2019-04-20 00:00:00 No Hemorrhoids, unspecified hemorrhoi d type 1{applicator} Insert 1 Applicator rectally [address] [facility] psyllium husk 0.4 gram cap 2018-02-27 00:00:00 2019-04-20 00 :00:00 No Constipation, unspecified constipation type 1{capsule} QD Take 1 capsule by mouth daily. [facility] polyethylene glycol (GOLYTELY) 236-22.74-6.74 -5.86 gram ora l solution 2018-02-24 00:00:00 2019-04-20 00:00:00 No Occult blood positiv e stool Add lukewarm drinking water to the fill alley (4 liters) and shake. Drink as directed by your doctor.. [facility] omega 8-lks-xyq-fish oil 100-160-1,000 mg cap 20 28-02-10 00:00:00 2019-04-20 00:00:00 No Elevated LDL cholesterol level 1{capsule} QD Take 1 capsule by mouth daily. [facility] azelastine (OPTIVAR) 0.05 % ophthalmic solution 2017-10-17 00:00:00 2019-04-20 00:00:00 No Acute allergic conjunctivitis, unspecifie d laterality 1[drp] Q.5D Instill 1 Drop in left eye [address] [facility] acetaminophen-codeine (TYLENOL/CODEINE #3) 300-30 mg per tab let 2017-09-17 00:00:00 2019-04-20 00:00:00 No Chronic pain of both knees 1{t bl} Take 1 tablet by mouth every 4 hours as needed for Pain. [facility] dexlansoprazole (DEXILANT) 30 mg delayed release capsule 2017-02-12 00:00:00 2019-04-20 00:00:00 No Esophagitis, erosive Take 1 capsule by mouth daily for 14 days after finishing the treatment for H. Pylori infection. 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 [facility] Calcium-Cholecalciferol, D3, (CALCIUM 600 + D) 600-125 mg-un it Tab 2016-11-16 00:00:00 2019-04-20 00:00:00 No Knee pain, right 1{tbl} QD Take 1 tablet by mouth daily. [facility] cyanocobalamin, vitamin B-12, (VITAMIN B-12) 1,000 mcg table t 2016-11-16 00:00:00 2019-04-20 00:00:00 No SOB (shortness of breath) 1000 ug QD Take 1 tablet by mouth daily. [facility] ferrous sulfate 325 mg (65 mg iron) tablet 11-16 00:00:00 2019-04-20 00:00:00 No SOB (shortness of breath) 325mg QD Take 1 tablet by mouth daily (with breakfast). [facility] Nebulizer & Compressor For Neb Carol Ann 2015-09-28 00:00:0 0 2019-04-20 00:00:00 No Asthmatic bronchitis, severe persistent, with acute ex acerbation 1{device} 1 Device by [facility]Non-Drug; Combo Route) route [address] [facility] polyvinyl alcohol (AKWA TEARS, POLYVINYL ALCOHOL,) 1.4 % oph thalmic solution 2014-12-07 00:00:00 2019-04-20 00:00:00 No Bilateral dry eyes 1 [drp] Instill 1 Drop in each eye as needed for dry eye(s). [facility] atorvastatin (LIPITOR) 10 mg tablet 2014-04-08 00:00:00 Yes HLD (hyperlipidemia) 10mg Take 1 tablet by mouth at bedtime nightly [facility] furosemide (LASIX) 40 mg tablet 2014-02-25 00:00:00 Yes Congestive heart failure (CHF) 40mg Q.5D Take 1 tablet by mouth 2 times daily for [address] [facility] Immunizations Ordered Immunization Name Filled Immunization Name Date Status Comments Source Influenza, Vaccine<FLUCELVAX>(Multi-Dose) 2019-04-28 00:00 :[address] [facility] Herpes Zoster Vaccine In Clinic 2017-01-15 00:00:[address] [facility] Tdap Tetanus, diphtheria, acellular pertussis Vaccine 2017-01-15 00:00:00 [facility] PCV 13 (Pnuemococcal Conjugated 13 Valent) 2016-10-06 00:0 0:[address] [facility] Influenza Vaccine 2015-05-19 00:00:[address] [facility] PPV 23 Pneumococcal Polysaccaride 2015-05-19 00:00:[address] [facility] Vital Signs Vital Name Observation Time Observation Value Comments Source Systolic blood pressure 2019-08-03 10:01:00 132 mm[Hg] [facility] Diastolic blood pressure 2019-08-03 10:01:00 62 mm[Hg] [facility] Heart rate 2019-08-03 10:01:00 64 /min [facility] Body temperature 2019-08-03 10:01:00 36.56 Constanza [facility] Respiratory rate 2019-08-03 10:01:00 18 /min [facility] Body height 2019-08-03 10:01:00 147.3 cm [facility] Body weight 2019-08-03 10:01:00 59.875 kg [facility] BMI 2019-08-03 10:01:00 27.59 kg/m2 [facility] Oxygen saturation in Arterial blood by Pulse oximetry 2018-07 15:28:00 97 /min [facility] Procedures Procedure Date / Time Performed Performing Clinician Sour e POCT BNP (B-TYPE NATRIURETIC PEPTIDE) 2019-06-17 18:30:00 [facility] ECHG EKG PROC 12 LEAD EKG; TRACING ONLY 2019-06-17 18:27[facility] 2019-06-17 [facility]:27[facility]CREATININE RATIO, URINE 2019-05-13 13:58:00 [facility] ANTI DSDNA BY CRITHIDIA 2019-05-13 13:37:00 [facility] ANTIEXTRACTABLE NUCLEAR ANTIGENS 2019-05-13 13:37:00 [facility] SJOGREN'S AB 2019-05-13 13:37:00 [facility] Celestine Silverman A 2019-05-13 13:37:00 [facility] LUPUS ANTICOAGULANT PANEL 2019-05-13 13:37:00 [facility] THYROID STIMULATING HORMONE (TSH) 2019-05-13 13:37:00 [facility] CK, TOTAL 2019-05-13 13:37:00 [facility] SED RATE 2019-05-13 13:37:00 [facility] C-REACTIVE PROT 2019-05-13 13:37:00 [facility] BETA-2 GLYCOPROTEIN 1 ANTIBODIES, IGG AND IGM 2019-05-13 13:37:0 [address] [facility] COMPLEMENT C4 2019-05-13 13:37:00 [facility] CREATINE KINASE MB (CKMB) 2019-05-13 13:37:00 [place] [facility] LIVER PROFILE 2019-04-29 15:18:00 [facility] HEPATITIS PANEL 2019-04-29 15:18:00 [facility] SHELLEY 2019-04-29 15:18:00 [facility] RA FACTOR 2019-04-29 15:18:00 [facility] HCV RNA QUANT, PCR 2019-04-29 15:18:00 [facility] X[facility] SPINE CER 2-3 AP- LAT- ODONTOID 2019-04-28 20:15:59 [facility] XRAY SHOULDER 2 VIEWS MIN 2019-04-28 20:15:59 Gurvinder Lrandra [facility] XRAY SPINE LUMBOSACRAL AP-LAT 2019-04-28 20:15:[address] [facility] LIPID PROFILE 2019-03-18 12:57:00 [facility] COMPREHENSIVE METABOLIC PANEL 2019-03-18 12:57:[address] [facility] MAGNESIUM 2019-03-18 12:57:00 [place] [facility] Plan of Care Planned Activity Planned Date Details Comments Source Future Scheduled Test 2020-04-13 00:00:00 IMM Influenza Seas onal Apr to September (>/= 19 yrs) [code = IMM Influenza Seasonal Apr to September (>/= 19 yrs)] [facility] Future Scheduled Test 2020-03-18 00:00:00 CORONARY ARTERY DI SEASE AGE 18 AND UP [code = CORONARY ARTERY DISEASE AGE 18 AND UP] [facility] Encounters Start Date/Time End Date/Time Encounter Type Admission Type [facility] Facility Care Department Encounter ID Source 2016-11-26 07:28:46 Inpatient [facility] [id number] [facility] 2016-11-25 13:42:34 Inpatient [facility] [id number] [facility] 2016-11-25 00:00:00 Inpatient [facility] [id number] [facility] 2016-11-24 05:14:52 Inpatient [facility] [id number] [facility] 2016-11-13 09:01:11 Inpatient [facility] [id number] [facility] 2016-10-04 12:45:42 Inpatient [facility] [id number] [facility] 2016-10-04 10:21:00 Inpatient [facility] [id number] [facility] 2016-10-04 00:00:00 Inpatient [facility] [id number] [facility] 2016-10-04 00:00:00 Inpatient [facility] [id number] [facility] 2016-10-03 12:47:53 Inpatient [facility] [id number] [facility] 2019-10-27 00:00:00 2019-10-27 00:00:00 Outpatient [facility] [id number] [facility] 2019-08-03 10:01:24 2019-08-03 10:01:24 Outpatient [facility] [id number] [facility] 2019-07-09 15:27:44 2019-07-09 15:27:44 Outpatient [facility] [id number] [facility] 2019-06-30 00:00:00 2019-06-30 00:00:00 Outpatient [facility] [id number] [facility] 2019-06-17 10:15:59 2019-06-17 10:15:59 Outpatient [facility] [id number] [facility] 2019-05-13 08:29:25 2019-05-13 08:29:25 Outpatient [facility] [id number] [facility] 2019-05-13 00:00:00 2019-05-13 00:00:00 Outpatient [facility] [id number] [facility] 2019-05-12 15:01:07 2019-05-12 15:01:07 Outpatient [facility] [id number] [facility] 2019-04-29 10:17:07 2019-04-29 10:17:07 Outpatient [facility] [id number] [facility] 2019-04-29 00:00:00 2019-04-29 00:00:00 Outpatient [facility] [id number] [facility] 2019-04-28 15:22:07 2019-04-28 15:22:07 Outpatient [facility] [id number] [facility] 2019-04-28 14:42:00 2019-04-28 14:42:00 Outpatient [facility] [id number] [facility] 2019-04-20 12:31:03 2019-04-20 12:31:03 Outpatient [facility] [id number] [facility] 2019-03-18 07:53:07 2019-03-18 07:53:07 Outpatient [facility] [id number] [facility] 2019-03-18 00:00:00 2019-03-18 00:00:00 Outpatient [facility] [id number] [facility] 2019-03-17 14:55:26 2019-03-17 14:55:26 Outpatient [facility] [id number] [facility] 2018-12-04 00:00:00 2018-12-04 00:00:00 Outpatient [facility] [id number] [facility] 2018-10-07 00:00:00 2018-10-07 00:00:00 Outpatient [facility] [id number] [facility] 2018-09-09 15:02:14 2018-09-09 15:02:14 Outpatient [facility] [id number] [facility] 2018-09-08 09:11:18 2018-09-08 09:11:18 Outpatient [facility] [id number] [facility] 2018-09-07 10:15:54 2018-09-07 10:15:54 Outpatient [facility] [id number] [facility] 2018-08-24 00:00:00 2018-08-24 00:00:00 Outpatient [facility] [id number] [facility] 2018-08-21 10:16:08 2018-08-21 10:16:08 Emergency [facility] [id number] [facility] 2018-08-21 10:04:42 2018-08-21 10:04:42 Inpatient [facility] [id number] [facility] 2018-08-20 00:50:15 2018-08-20 00:50:15 Emergency [facility] [id number] [facility] 2018-08-20 00:16:58 2018-08-20 00:16:58 Emergency [facility] [id number] [facility] 2018-08-19 11:07:23 2018-08-19 11:07:23 Outpatient [facility] [id number] [facility] 2018-05-22 00:00:00 2018-05-22 00:00:00 Outpatient [facility] [id number] [facility] 2018-04-29 00:00:00 2018-04-29 00:00:00 Outpatient [facility] [id number] [facility] 2018-02-27 08:00:27 2018-02-27 08:00:27 Outpatient [facility] [id number] [facility] 2018-02-24 11:39:42 2018-02-24 11:39:42 Outpatient [facility] [id number] [facility] 2018-02-20 14:55:30 2018-02-20 14:55:30 Outpatient [facility] [id number] [facility] 2018-02-20 13:22:12 2018-02-20 13:22:12 Outpatient [facility] [id number] [facility] 2017-11-19 12:59:41 2017-11-19 12:59:41 Outpatient [facility] [id number] [facility] 2017-10-17 12:34:22 2017-10-17 12:34:22 Outpatient [facility] [id number] [facility] 2017-10-17 09:51:17 2017-10-17 09:51:17 Outpatient [facility] [id number] [facility] 2017-09-19 11:01:57 2017-09-19 11:01:57 Outpatient [facility] [id number] [facility] 2017-09-18 08:35:02 2017-09-18 08:35:02 Outpatient [facility] [id number] [facility] 2017-09-17 13:25:42 2017-09-17 13:25:42 Outpatient [facility] [id number] [facility] 2017-09-11 09:38:52 2017-09-11 09:38:52 Outpatient [facility] [id number] [facility] 2017-02-12 15:13:21 2017-02-12 15:13:21 Outpatient [facility] [id number] [facility] 2017-01-23 07:56:40 2017-01-23 07:56:40 Outpatient [facility] [id number] [facility] 2017-01-15 13:27:42 2017-01-15 13:27:42 Outpatient [facility] [id number] [facility] 2016-12-27 13:10:13 2016-12-27 13:10:13 Outpatient [facility] [id number] [facility] 2016-12-13 00:00:00 2016-12-13 00:00:00 Outpatient [facility] [id number] [facility] 2016-12-04 00:00:00 2016-12-04 00:00:00 Outpatient [facility] [id number] [facility] 2016-11-29 14:52:05 2016-11-29 14:52:05 Outpatient [facility] [id number] [facility] 2016-11-29 13:52:11 2016-11-29 13:52:11 Outpatient [facility] [id number] [facility] 2016-11-29 00:00:00 2016-11-29 00:00:00 Outpatient [facility] [id number] [facility] 2016-11-25 11:36:26 2016-11-25 00:00:00 Inpatient [facility] [id number] [facility] 2016-11-25 00:00:00 2016-11-25 00:00:00 Outpatient [facility] [id number] [facility] 2016-11-24 10:31:55 2016-11-24 10:31:55 Emergency [facility] [id number] [facility] 2016-11-24 05:40:53 2016-11-24 05:40:53 Emergency [facility] [id number] [facility] 2016-11-14 10:57:13 2016-11-14 10:57:13 Outpatient [facility] [id number] [facility] 2016-11-13 15:04:38 2016-11-13 15:04:38 Emergency [facility] [id number] [facility] 2016-11-13 11:29:59 2016-11-13 11:29:59 Emergency [facility] [id number] [facility] 2016-10-03 14:16:59 2016-10-03 14:16:59 Emergency [facility] [id number] [facility] 2016-09-26 00:00:00 2016-09-26 00:00:00 Outpatient [facility] [id number] [facility] 2015-12-01 00:00:00 2015-12-01 00:00:00 Outpatient [facility] [id number] [facility] 2015-11-28 00:00:00 2015-11-28 00:00:00 Outpatient [facility] [id number] [facility] 2015-11-14 00:00:00 2015-11-14 00:00:00 Outpatient [facility] [id number] [facility] 2015-09-28 00:00:00 2015-09-28 00:00:00 Outpatient [facility] [id number] [facility] 2015-08-23 00:00:00 2015-08-23 00:00:00 Outpatient [facility] [id number] [facility] 2014-04-28 00:00:00 2014-04-28 00:00:00 Outpatient [facility] [id number] [facility] Results Test Description Test Time Test Comments Results Result Comments Source CHEST SINGLE (PORTABLE) 2019-12-02 13:28:00 [place] [address] Patient Name: JOSE DELATORRE MR #: [id number] : 1935 Age/Sex: 84/F Req #: [id number] Adm Physician: Ordered by: CHERELLE DEMARCO DO Report #: [id number] Location: ER Room/Bed: Procedure: [id number] DX/CHEST SINGLE (PORTABLE) Exam Date: 12/02/19 Exam Time: 1310 REPORT STATUS: Signed X-ray chest frontal view History: Shortness of breath abdominal pain spit-up Comparison: None Findings: Portable study. Central airways unremarkable. Heart size borderline. Atherosclerotic aorta. No definite pleural effusion or pneumothorax. A 2.3 cm round opacity overlying the right lower lung zone. It has discrete margins and could be situated outside the lung. When possible a chest CT should be obtained to further characterize this nodule. Degenerative changes in the shoulders right much more than left. Upper abdomen poorly visualized. Old healed fractures of the right posterior rib. Impression: No acute pulmonary disease. Nodular opacity in the right lower lung zone. Please see above. A chest CT may be considered when possible. Signed by: Daniel Evangelista MD on 12/02/2019 1:31 PM Dictated By: DANIEL EVANGELISTA MD Transcribed By: DEE DEE on 12/02/191 COPY TO: CHERELLE DEMARCO DO POCT BMP POC docked device 2019-06-17 12:59:00 Test Item Sodium POC (test code = 36121978) 138 mmol/L 136-145 Potassium POC (test code = 68526571) 3.9 mmol/L 3.5-5.1 Chloride POC (test code = 50507516) 98 mmol/L 98-107 TCO2 POC (test code = 37656087) 33 mmol/L 21-32 H Urea Nitrogen POC (test code = 00276254) 21 mg/dL 7-18 H Creatinine POC (test code = 35901864) 0.9 mg/dL 0.6-1.3 Glucose POC (test code = 17557944) 103 mg/dL 74-106 Ionized Calcium POC (test code = 29079054) 1.22 mmol/L 1.15-1.29 GFR, Estimated (test code = 53935251) 58 >=90 mL/min/1.73 m2 L Hemoglobin POC (test code = 51348335) 14.3 g/dL 12-16 Physician Notified Hematocrit POC (test code = 89708687) 42.0 % 37-47 Lab Interpretation (test code = 47148-2) [facility] NATRIURET[facility] PEPT[facility] docked [id number] 12:59:00* Test Item Value Reference Range Interpretation Comments POC BNP (test code = 871412013) 209 pg/mL 0-100 H --- Lab Interpretation (test code = 21334-8) Abnormal [place] [address] LEAD [id number] 12:35:3512 LEAD EKG FOR [facility] Test Date: 9113-12-77Fzq Name: JOSE PERRY Department: [id number] ID: [id number] Room: Gender: F [employer]: YURI RNDOB: 1935 Requested By: LISETH JOHN Order Number: [id number] [place] MD: Bebeto Sanchez MeasurementsIntervals [place] Rate: 83 P: MO: 0 QRS: 34QRSD: 68 T: 70QT: 408 QTc: 481 Interpretive StatementsATRIAL FIBRILLATIONVOLTAGE CRITERIA FOR LVHST DEVIATION AND MODERATE T-WAVE ABNORMALITY, CONSIDER LATERAL ISCHEMIAElectronically Signed On 06-17-2019 12:35:30 [employer]END[facility] [employer]AMP[employer] by Bebeto Ann [facility] CenterLupus Anticoagulant [id number] 11:55:00* Test Item Value Reference Range Interpretation Comments DRVV Screen Ratio (test code = 05595498) 0.96 0.00- 1.20 Ra patel PTT-LA Screen (test code = 49435626) 35.5 26.0- 40.0 Sec LA Interpretation (test code = 31572937) There is no e vidence of lupus anticoagulant by two screening tests (DRVV and PTT-LA). Unless there is a clinical suspicion, no further testing for LA is indicated. [facility] CenterAnticardiolipin Abs, IgA,IgG,IgM, [id number] 12:07:00* Test Item Value Reference Range Interpretation [...] SAGAR (test code = SAGAR) Performed at: [address] [place] [address] [id number] Director: Dafne Avalos MD, Phone: [phone] [facility] CenterSjgren's Antibodies (Anti-SS-A/Anti-SS-B)2019-05-16 12:07:00* Test Item Value Reference Range Interpretation Comments Sjogren's Anti-SS-A (test code = 77576-6) <0.2 0.0- 0.9 AI Sjogren's Anti-SS-B (test code = 81920-7) <0.2 0.0- 0.9 AI SAGAR (test code = SAGAR) Performed at: [facility] [id number] Director: Shahzad Arnold MD, Phone: [phone] [facility] CenterBeta-2 Glycoprotein 1 Antibodies, IgG and [id number] 12:07:00* Test Item Value Reference Range Interpretation Comments Beta-2 Glycoprotein I Ab, IgG (test code = 98259-9) <9 0- 20 GPI IgG units The reference interval reflects a 3SD or 99th percentile interval,which is thought to represent a potentially clinically significantresult in accordance with the International Consensus Statement onthe classification criteria for definitive antiphospholipid syndrome(APS). J Thromb Haem 2006;4:295-306. Beta-2 Glycoprotein I Ab, IgM (test code = 86416-9) <9 0- 32 GPI IgM units The reference interval reflects a 3SD or 99th percentile interval,which is thought to represent a potentially clinically significantresult in accordance with the International Consensus Statement onthe classification criteria for definitive antiphospholipid syndrome(APS). J Thromb Haem 2006;4:295-306. SAGAR (test code = SAGAR) Performed at: [address] [id number] Director: Dafne Avalos MD, Phone: [phone] [facility] CenterAntiextractable Nuclear Antigens(ENEDELIA - HAM CLERK Ab + Pedraza Ab)2019-05-16 12:07:00* Test Item Value Reference Range Interpretation Comments HAM CLERK Antibodies (test code = 33702-6) <0.2 0.0- 0.9 AI Pedraza Antibodies (test code = 28798-2) <0.2 0.0- 0.9 AI SAGAR (test code = SAGAR) Performed at: [address] [id number] Director: Shahzad Arnold MD, Phone: [phone] [facility] CenterAnti-dsDNA by Crithidia [id number] 23:25:00* Test Item Value Reference Range Interpretation Comments ANTI-DNA (DS) AB QN (test code = 07332235) Negative Negative Lab Interpretation (test code = 94094-6) Normal [facility] CenterTotal Protein/Creatinine Ratio, [id number] 22:38:00* Test Item Value Reference Range Interpretation Comments Creatinine, Urine (test code = 81878035) 61 mg/dL 20-320 Total Protein, Urine (test code = 66819659) 0.09 g/L <0.19 Total Protein/Creatinine Ratio, Urine (test code = 16510334) 0.1 % 0- 0.5 % Lab Interpretation (test code = 25500-6) Normal [place] [id number] 15:43:00* Test Item Value Reference Range Interpretation Comments CKMB (test code = 23276207) 2.9 ng/mL CKMB Index (test code = 88100963) 2.[address] CenterComplement [id number] 15:14:00* Test Item Value Reference Range Interpretation Comments Complement C3 (test code = 44099187) 120.5 mg/dL 87-200 Lab Interpretation (test code = 05330-2) Normal [facility] CenterComplement [id number] 15:14:00* Test Item Value Reference Range Interpretation Comments Complement C4 (test code = 70897989) 32.7 mg/dL 19-52 Lab Interpretation (test code = 55349-0) Normal [facility], Total [Creatinine Kinase, Total]2019-05-13 15:14:00* Test Item Value Reference Range Interpretation Comments CK (test code = 82282608) 133 U/L 30-223 Lab Interpretation (test code = 79532-6) Normal [facility] CenterC-Reactive Tahsdon4248-12-06 15:14:00* Test Item Value Reference Range Interpretation Comments C-Reactive Protein (test code = 24339868) <0.2 <10.0 mg/dL Lab Interpretation (test code = 06645-7) Normal [facility] CenterTSH [Thyroid Stimulating Hormone]2019-05-13 15:10:00* Test Item Value Reference Range Interpretation Comments TSH (test code = 43323415) 2.75 0.45- 5.33 uIU/mL If , please see the following reference ranges (not verified by lab): 1st Trimester: 0.05 -3.70 uIU/mL2nd Trimester: 0.31 -4.35 uIU/mL3rd Trimester: 0.41 - 5.18 uIU/mL Lab Interpretation (test code = 96813-7) Normal [facility] CenterSED Ysuy6844-59-51 14:52:00* Test Item Value Reference Range Interpretation Comments Sed Rate (test code = 12102674) 17 0-<30 mm/Hr Lab Interpretation (test code = 72871-5) Normal [facility] CenterHCV RNA Quantitative, [id number] 22:35:00* Test Item Value Reference Range Interpretation Comments HCV RNA Quant, PCR (test code = 88865-1) Not detected Not detected IU/mL SAGAR (test code = SAGAR) This test utilizes FDA clear ed TRAM AmpliPrep/TRAM TaqMan HCV test, v2.0 from [employer] which allows quantitation of viral loads between [...] HCV infection. Lab Interpretation (test code = 38528-8) Normal [facility] CenterScugygUUV1317-17-78 05:40:00* Test Item Value Reference Range Interpretation Comments SHELLEY Screen (test code = 79195359) Positive Negative A SHELLEY Titer (test code = 12473160) 1:160 None detected Titer H SHELLEY Pattern (test code = 12784057) Speckled (none) Pattern A Lab Interpretation (test code = 56266-8) Abnormal [facility] CenterHepatitis [id number] 23:52:00* Test Item Value Reference Range Interpretation Comments Hep C Vir Ab IgG (test code = 80438-9) Positive Negative A Hep B Surface Ag (test code = 5196-1) Negative Negative Hep A Vir Ab IgM (test code = 15933-4) Negative Negative Hep B Core Ab IgM (test code = 38164-2) Negative Negative Lab Interpretation (test code = 28269-4) Abnormal [facility] CenterRA Ocghjw9350-46-84 07:06:00* Test Item Value Reference Range Interpretation Comments RA (test code = 51476258) <10 <14 IU/mL Lab Interpretation (test code = 68261-4) Normal [facility] CenterLiver Uquydhc2627-47-80 07:05:00* Test Item Value Reference Range Interpretation Comments Bilirubin, Total (test code = 2885-2) 0.9 mg/dL 0.2-1.2 Alkaline Phosphatase (test code = 76383187) 123 U/L 34-104 H AST (test code = 75921695) 23 U/L 13-39 Direct Bilirubin (test code = 1968-7) 0.2 mg/dL 0-0.2 ALT (test code = 57500136) 19 U/L 7-52 Albumin (test code = 50816-1) 4.3 g/dL 3.7-5.3 Lab Interpretation (test code = 50045-8) Abnormal [facility] CenterXRAY SPINE LUMBOSACRAL [id number]-[id number] 16:12:39IMPRESSION: 1. Moderate degenerative changes of the thoracolumbar spine.2. Grade 1 anterolisthesis of L5.3. Chronic compression deformity fractures of T12, L2, and L4 vertebralbodies. This [facility] radiology report is a preliminary resident dictation [...] of T12, L2, and L4 vicente tebralbodies.This [facility] radiology report is a preliminary resident dictation unti lfinalized by an attending. Changes to this preliminary report may occurin an a dditional preliminary or finalized version.Dictated By: Ethan Issa MD, 04/28/2019 3:54 PMI have reviewed the study and agree with the findings in this report.Signed By: Brenda Lundberg MD, 04/28/2019 4:12 PMHarWayside Emergency HospitalXRAY SPINE CER 2-3 AP- LAT- [id number] 16:12:37IMPRESSION: 1. Diffuse osteopenia.2. Mild degenerative changes of the cervical spine. This [facility] radiology report is a preliminary resident dictation [...] degenerative changes of the cervical sp ine.This [facility] radiology report is a preliminary resident dictation untilfinalize d by an attending. Changes to this preliminary report may occurin an additional preliminary or finalized version.Dictated By: Ethan Issa MD, 04/28/20 19 3:49 PMI have reviewed the study and agree with the findings in this report.S igned By: Brenda Lundberg MD, 04/28/2019 4:12 PMBlythewood HealthXRAY SHOULDER 2 VIEWS [id number] 15:39:56IMPRESSION: No acute abnormality. Glenohumeral degenerative changes [...] By: Brenda Lundberg MD, 04/28/2019 3:39 P [facility]
[2019-12-02] MEDS: PANTOPRAZOL 40MG/SOD CHL 0.9% 50 ML IV SCH ×3 (16:00→22:15)
[2019-12-02 16:22] LABS: BILIRUBIN,URINE NEGATIVE (NEGATIVE); CLARITY,URINE SL CLOUDY (CLEAR); COLOR,URINE YELLOW (YELLOW); KETONES,URINE NEGATIVE (NEGATIVE); LEUKOCYTE ESTERASE ,URINE NEGATIVE (NEGATIVE); NITRITE,URINE NEGATIVE (NEGATIVE); PROTEIN,URINE DIPSTICK NEGATIVE (NEGATIVE); URINE UROBILINOGEN 0.2 mg/dL (0.2 - 1)
[2019-12-02 16:34] LABS: AMORPHOUS SEDIMENT,URINE MODERATE (FEW); BACTERIA,URINE FEW /HPF; EPITHELIAL CELLS,URINE FEW /LPF
--- NOTE | 2019-12-02 17:26 | NUR ---
PT DOES NOT WANT THE TRANSFUSION
--- NOTE | 2019-12-02 18:25 | NUR ---
Pt arrived to floor via stretcher resp even and unlabored at this time, pt then oriented to room and call light, bed in lowest position, pt was made comfortable, bed rails up x2, pt able to ambulate from stretcher to bed, pt has family member at bedside, call light in reach.
[2019-12-02 18:26] LABS: % IRON SATURATION 50 % (15-50); IRON 180 ug/dL (50-170); TOTAL IRON BINDING CAPACITY 360 ug/dL (261-478); TRANSFERRIN 257 mg/dL (180-382)
[2019-12-02 19:15] VITALS: BP 88/45
--- NOTE | 2019-12-02 19:15 | NUR ---
attempted to obtain family history from patients daughter but daughter unaware of much family history.
--- NOTE | 2019-12-02 19:15 | NUR ---
patient received awake, alert, lying quietly in bed. no c/o pain noted. daughter noted at the bedside. admit assessment/history obtained. protonix drip initiated per orders. partient/daughter instructed of 2 units prbc's tonight. both verbalize understanding of this. call chauhan placed within reach. patient/daughter instructed to call for assistance when needed.
--- NOTE | 2019-12-02 19:32 | NUR ---
report given to oncoming nurse. pt stable at shift change.
--- NOTE | 2019-12-02 20:00 | NUR ---
consent for blood transfusion obtained from patient. patient able to sign only with alley because she's unable to write her name. daughter refuses to sign because the daughter is jehovah witness but the patient is not. Consent witnessed with Po Brown RN.
[2019-12-02 21:10] VITALS: BP 88/45
--- NOTE | 2019-12-02 22:13 | NUR ---
first unit blood initiated and transfusing without difficulty. close monitoring continues.
[2019-12-02] MEDS ORDERED: SODIUM CHLORIDE 0.9% 250ML 250 ML ONE (22:15)
--- NOTE | 2019-12-02 22:55 | History and Physical ---
CHIEF COMPLAINT: An 84-year-old female, came with upper GI and lower GI bleed. HISTORY OF PRESENTING ILLNESS: This is . Edwina Meyer with a history of congestive heart failure, atrial fibrillation, frequent urinary tract infection, hypoxia, pulmonary edema, and history of coronary artery disease, was in usually state of health until this morning, when the patient woke up, the patient noted to have a bloody stool. The patient started to bleed profusely and the patient was brought to the emergency room, was found to have a hemoglobin of 5.9, and admitted to the hospital for GI bleed. PAST MEDICAL HISTORY: History of atrial fibrillation, history of hypertension, history of hyperlipidemia, history of long-term anticoagulation, and history of congestive heart failure. MEDICATIONS: She takes atorvastatin 10 mg, cyanocobalamin 1000 mcg, Lanoxin 250 mcg daily, enalapril 5 mg daily, furosemide 40 mg daily, loratadine 10 mg daily, metoprolol 25 mg daily, nitroglycerin 1 patch a day, warfarin 1 mg daily. Medicines, the patient takes at home includes Advair 250/50. She takes Lasix 20 mg daily, Feosol lgid-wet-dhieuoq 65 mg of elemental iron, atorvastatin 80 mg, Mariann aspirin also in addition to medicines described and Proventil. SOCIAL HISTORY: No EtOH. No IV drug abuse. No history of smoking either. FAMILY HISTORY: Noncontributory. PAST SURGICAL HISTORY: Noncontributory either. REVIEW OF SYSTEMS: Negative for chest pain. Positive for shortness of breath. No nausea, no vomiting or diarrhea. Positive for cavities, positive for spitting up blood, but currently the daughter says no, but she does have bloody diarrhea. ALLERGIES: ALLERGIC TO LORATADINE. PHYSICAL EXAMINATION: GENERAL: The patient is alert and oriented x3. HEENT: Has pallor. Normocephalic, atraumatic. Pupils are reactive. CVS: S1 and S2. Irregular. ABDOMEN: Slightly tender in the epigastrium. EXTREMITIES: No clubbing, no cyanosis. Trace edema. LABORATORY VALUES: White count is 8.07, hemoglobin of 5.9, hematocrit of 18.3, MCV 104, and platelet count is 195. ASSESSMENT AND PLAN: 1. The patient with gastrointestinal bleed. In discussion with the family and the patient, the patient has had a very bad experience with blood transfusion. The daughter shows witness and they at this time do not want a transfusion. I explained the risks and benefits of not having blood, especially with wanting to or need to have a procedure and not being able to do it secondary to anemia. The patient is reconsidering. 2. History of hypertension, hyperlipidemia, atrial fibrillation, and congestive heart failure. We will do an echocardiogram. We will hold back on medications at this time, especially anticoagulation expressed grief need again of need for anticoagulation. Consult Cardiology and also consult Dr. Yaniv Gerardo, for GI. Further recommendation per clinical course and the grief need for blood transfusion has been expressed again and again to the daughter and to the patient. Further recommendation per clinical course. We will continue to monitor the patient. MD YI Curry/MODL /[id number]
[2019-12-02 22:57] VITALS: BP 88/45
[2019-12-02] MEDS ORDERED: CITRATE OF MAGNESIA 300ML BOTTLE PO ONE (23:00)
[2019-12-03] VITALS (8 sets, daily range): BP systolic 106–140; BP diastolic 47–82
[2019-12-03] MEDS ORDERED: CITRATE OF MAGNESIA 300ML BOTTLE PO ONE
--- NOTE | 2019-12-03 00:15 | NUR ---
first unit prbc's complete. vss. no transfusion reaction noted. Addendum: 12/03/19 at 0539 by Betsy Seth RN WRONG TIME--- 114 first unit prbc's complete. no transfusion reaction noted.
--- NOTE | 2019-12-03 01:20 | NUR ---
consent obtained from patient. patient only able to sign with a simple alley due to patient being unable to sign her name. consent witnessed with Po Brown RN.
--- NOTE | 2019-12-03 01:45 | NUR ---
second unit of blood initiated and infusing without difficulty. vss. no c/o pain noted. daughter remains at patients side.
[2019-12-03] MEDS: PANTOPRAZOL 40MG/SOD CHL 0.9% 50 ML IV SCH ×5 (05:00→22:39)
--- NOTE | 2019-12-03 05:10 | NUR ---
Second unit prbc'd complete. vss. no transfusion reaction noted.
--- NOTE | 2019-12-03 06:00 | NUR ---
patient oob to bsc with assistance. many stools noted throughout the night.
[2019-12-03 06:34] LABS: BASOPHILS % 0.4 % (0.0-1.0); EOSINOPHILS % 0.6 % (0.0-6.0); HEMOGLOBIN 8.6 g/dL (12.0-16.0); LYMPHOCYTES # (AUTO) 0.8 (1.0-3.2); LYMPHOCYTES % 10.9 % (18.0-39.1); MEAN CORPUSCULAR HGB CONC 31.9 g/dL (31-35); MEAN CORPUSCULAR VOLUME 100.4 fL (81-99); MONOCYTES # (AUTO) 0.7 (0.2-0.8); MONOCYTES % 9.4 % (4.4-11.3); NEUTROPHILS # (AUTO) 5.4 (2.1-6.9); PLATELET COUNT 176 x10e3/uL (140-360); RED BLOOD COUNT 2.69 x10e6/uL (3.6-5.1)
--- NOTE | 2019-12-03 09:30 | NUR ---
called to patient's room. daughter showed me large amount of blood in bedside commode. Dr. Gerardo notified and labs ordered.
[2019-12-03] MEDS: MORPHINE SULFATE 2 MG/ML SYR 1ML IV PRN ×2 (09:39→19:10)
[2019-12-03 10:09] LABS: INR 1.08; PARTIAL THROMBOPLASTIN TIME 25.9 seconds (23.8-35.5); PROTHROMBIN TIME 14.7 seconds (11.9-14.5)
--- NOTE | 2019-12-03 19:20 | NUR ---
patient received awake, alert, lying quietly in bed. iv protonix continues to infuse without difficulty. patient denies pain at this time. pm assessment complete. daughter remains at the bedside. patient/daughter instructed to call for assistance when needed.
[2019-12-03] MEDS ORDERED: LIDOCAINE HCL 2% LOCAL INJ 5 ML SDV VIAL INJ ONE (19:27)
[2019-12-03] MEDS ORDERED: PROPOFOL IV EMULSION 10 MG/ML 20 ML VIAL ONE (19:27)
[2019-12-03] MEDS ORDERED: FENTANYL CITRATE/PF 100MCG/2 ML INJ ONE (20:03)
[2019-12-03] MEDS: ATORVASTATIN 40 MG TAB PO SCH (20:24)
[2019-12-03] MEDS ORDERED: ATORVASTATIN 10 MG TAB PO SCH (21:00)
--- NOTE | 2019-12-03 21:30 | Progress Note ---
DATE: SUBJECTIVE: This patient came in with acute GI bleed. 2 units of PRBCs were given to the patient. The patient had her Mag Citrate in the morning, cleaned up and went in for colonoscopy. She got a call from Dr. Yaniv Gerardo that she has a colonic mass in the hepatic flexure. Currently, the patient is in the recovery suite. OBJECTIVE: VITAL SIGNS: During procedure; temperature 98.1, pulse 75, respirations of 18, blood pressure is 107/57, and pulse oximetry of 97%. LABORATORY VALUES: Hemoglobin improved 8.6 and hematocrit 27.0, platelet count of 176, and neutrophils 78. ASSESSMENT AND PLAN: Edwina Meyer with. 1. 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 2. Atrial fibrillation. 3. Hyperlipidemia. 4. Blood loss anemia. 5. Hypertension. 6. Congestive heart failure. PLAN: Consult Dr. Gerardo Zarate, consult with Dr. Braulio Ward has been done for atrial fibrillation. We will continue to monitor the patient. Repeat H and H will be done tomorrow. Further recommendation per clinical course. We will continue to monitor the patient. MD YI Curry/MODL /[id number]
--- NOTE | 2019-12-03 23:00 | Operative Report ---
DATE OF PROCEDURE: 12/03/2019 SURGEON: Yaniv Gerardo MD PROCEDURE: Colonoscopy with EGD scope and biopsies. INDICATIONS FOR COLONOSCOPY: Rectal bleeding. MEDICATIONS: The patient was done under MAC, please see anesthesiologist's note. PROCEDURE IN DETAIL: With the patient in left lateral decubitus position, a flexible fiberoptic Olympus colonoscope was inserted into the rectum with ease and could not be advanced beyond the distal sigmoid colon as the sigmoid colon was sharply angulated and somewhat fixed, probably from adhesions from previous surgeries. The scope was then withdrawn and the EGD scope was then inserted into the rectum and advanced with some difficulty all the way to the cecum. Prep overall was suboptimal with retained blood clots, some blood in the colon. The scope was then withdrawn slowly and then whatever was visualized the mucosa overlying the cecum and ascending colon appeared to be within normal limits. A somewhat circumferential mass was noted in the hepatic flexure, that was biopsied and tattooed. There were some scattered diverticular disease noted in the rest of the colon. The scope was then retroflexed into the distal rectum. Small internal hemorrhoids were noted, none of which was actively bleeding. The scope was then straightened out, it was subsequently withdrawn. The patient tolerated the procedure well. IMPRESSION: 1. Colonoscopy with EGD scope to cecum, prep suboptimal with retained blood clots and blood in the colon. 2. Somewhat circumferential mass in the hepatic flexure, biopsied, tattooed. 3. Diverticulosis. 4. Internal hemorrhoids, none actively bleeding. PLAN: Follow up histology. Initiate full liquid diet. Consult Dr. Emmanuel Zarate. Yanvi Gerardo MD [facility] [place] [place] /[id number] cc: MD Emmanuel Curry MD
[2019-12-04] VITALS (8 sets, daily range): BP systolic 95–160; BP diastolic 43–81
--- NOTE | 2019-12-04 00:05 | Consultation ---
DATE OF CONSULTATION: 12/03/2019 Cardiology Consult Note REASON FOR CONSULTATION: History of AFib and CHF. CHIEF COMPLAINT: GI bleeding. HISTORY OF PRESENT ILLNESS: The patient is an 84-year-old female with history of AFib, not on anticoagulation at home and chronic systolic CHF, coronary artery disease, who presents with bloody stools, presented to the hospital and found to have hemoglobin of 5.9, and admitted for GI bleeding for further workup. PAST MEDICAL HISTORY: 1. History of AFib, not taking anticoagulation at home. 2. Hypertension. 3. Hyperlipidemia. 4. History of CHF. MEDICATIONS: Outpatient medication list reviewed. There is some confusion regarding whether she was compliant with her outpatient anticoagulation. SOCIAL HISTORY: The patient does not smoke or abuse drugs. FAMILY HISTORY: Noncontributory. REVIEW OF SYSTEMS: As per HPI, otherwise negative. OBJECTIVE: VITAL SIGNS: Temperature afebrile, pulse 75, respiratory rate 18, blood pressure 108/67 saturating 100% on 3 L nasal cannula. GENERAL: An elderly female, in no acute distress. CARDIOVASCULAR: Irregular rate and rhythm. No murmurs, rubs, or gallops. LUNGS: Clear to auscultation anteriorly. ABDOMEN: Soft, nontender, nondistended. NEURO AND PSYCH: Alert and oriented to person, place, and time. Normal affect. INPATIENT MEDICATIONS: Reviewed. LABORATORY DATA: Reviewed. Notable for hemoglobin of initially 5.9, now improved to 8.6, INR 1.08. BNP of 480. TELEMETRY DATA: Reviewed, shows rate controlled atrial fibrillation. ASSESSMENT: 1. Chronic systolic congestive heart failure. 2. History of atrial fibrillation, not on anticoagulation. 3. Acute gastrointestinal bleeding. 4. History of coronary artery disease. PLAN: Hold all anticoagulants and antiplatelet agents, given severe blood loss anemia and acute GI bleeding. The patient was not compliant with her Coumadin at home as her INR was only 1 on presentation. The patient will not be a candidate for anticoagulation going forward, given severe GI bleeding. Thank you for this consult. We will continue to follow. MD TERESE HernadezP/MODL /[id number]
[2019-12-04] MEDS: PANTOPRAZOL 40MG/SOD CHL 0.9% 50 ML IV SCH ×4 (02:30→20:35)
--- NOTE | 2019-12-04 07:52 | Progress Note ---
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 The patient is stable, status post 3 units of transfusion. The patient has a biopsy done by Dr. Yaniv Gerardo for colonic mass. Pathology reports are still pending. The patient is currently stable, sharp breath, has congestive heart failure. The patient is currently on Lasix, metoprolol, and will start back on aldactone. OBJECTIVE: VITAL SIGNS: Temperature is 98.8, pulse of 93, respirations 18, blood pressure is 135/62, pulse oximetry of 96%. HEENT: Normocephalic and atraumatic. Pupils are reactive. CVS: S1 and S2. Irregular. LUNGS: Decreased air entry. Positive for some crackles in the lung bases. ABDOMEN: Nontender, nondistended. EXTREMITIES: No clubbing. No cyanosis. Trace edema. LABORATORY VALUES: Last done was 8.6 and 27.0. Chemistries, BUN of 19, creatinine of 0.88. Troponins were negative. BNP was 479. Currently, the patient is on pantoprazole drip, which can be stopped. ASSESSMENT: 1. Ms. Edwina Meyer with a colonic mass, possibly cancer. Plan, will need resection. 2. The patient has chronic systolic congestive heart failure. We will continue with her Aldactone and her Lasix. Probably, we will need echocardiogram if she deems to have surgery. 3. Acute gastrointestinal bleed and blood loss anemia. 4. History of coronary artery disease. PLAN: Continue to monitor the patient. Hold off anticoagulation for right now. Restart her heart failure medications. Further recommendation per clinical course. We will continue to monitor the patient and we will also discuss with the daughter on progression of her disease and also transition to surgery if needed. MD YI Curry/KENROY /[id number]
[2019-12-04] MEDS ORDERED: METOPROLOL TARTRATE 25 MG TAB PO SCH (09:00)
[2019-12-04] MEDS: POTASSIUM CHLORIDE 20 MEQ TAB CR PO SCH ×2 (10:44→17:00)
[2019-12-04] MEDS: METOPROLOL TARTRATE 50 MG TAB PO SCH (10:44)
[2019-12-04] MEDS: FUROSEMIDE 40 MG TAB PO SCH (10:44)
[2019-12-04 11:10] LABS: BASOPHILS % 0.2 % (0.0-1.0); EOSINOPHILS % 0.4 % (0.0-6.0); HEMATOCRIT 24.3 % (34.2-44.1); HEMOGLOBIN 7.6 g/dL (12.0-16.0); LYMPHOCYTES # (AUTO) 0.6 (1.0-3.2); LYMPHOCYTES % 7.6 % (18.0-39.1); MEAN CORPUSCULAR HEMOGLOBIN 31.7 pg (28-32); MEAN CORPUSCULAR HGB CONC 31.3 g/dL (31-35); MEAN CORPUSCULAR VOLUME 101.3 fL (81-99); MONOCYTES # (AUTO) 0.7 (0.2-0.8); NEUTROPHILS # (AUTO) 6.9 (2.1-6.9); NEUTROPHILS % 83.1 % (38.7-80.0); PLATELET COUNT 162 x10e3/uL (140-360); RED CELL DISTRIBUTION WIDTH 22.6 % (11.7-14.4)
[2019-12-04] MEDS ORDERED: ACETAMINOPHEN 325 MG TAB PO PRN (12:15)
--- NOTE | 2019-12-04 12:17 | Progress Note ---
DATE: Cardiology Progress Note SUBJECTIVE: The patient complains of lower abdominal pain and also fatigue. No any other complaints. Denies any chest pain or shortness of breath. OBJECTIVE: VITAL SIGNS: Temperature 98.8, pulse 93, respiratory rate 18, blood pressure 160/81, oxygen saturation 96% on room air. GENERAL: Alert and oriented x3 this morning with daughter at the bedside. Does not appear to be in any acute distress. LUNGS: Clear to auscultation throughout. No wheezing. No rhonchi or crackles. CARDIOVASCULAR: Regular rate and rhythm. ABDOMEN: Soft, nontender. EXTREMITIES: Lower extremities, no edema. 2+ pedal pulses. CARDIOVASCULAR MEDICATIONS: Atorvastatin 80 mg p.o. at bedtime, metoprolol 50 mg p.o. daily, Lasix 40 mg p.o. daily. LABORATORY DATA: No new labs today. TELEMETRY: Rate controlled atrial fibrillation. ASSESSMENT: 1. Chronic systolic heart failure. 2. History of atrial fibrillation, not anticoagulated. 3. Acute gastrointestinal bleed. 4. History of coronary artery disease. PLAN: Continue to hold off anticoagulation and anti-platelet agents given severe anemia and acute GI bleed. This patient was noncompliant with her Coumadin at home as her INR was 1 on presentation. She is a poor candidate for anticoagulation going forward given her GI bleed. Continue to maintain her on telemetry at all time. Blood pressure labile, medications will be adjusted this morning. Continue to monitor this patient closely. The patient is undergoing an echo this morning. We will follow very closely. Dictated by Jane Olivia NP MD HAROON JarvisV/MODL /[id number]
[2019-12-04] MEDS: LOSARTAN POTASSIUM 25 MG TAB PO SCH ×2 (12:26→20:30)
--- NOTE | 2019-12-04 18:39 | NUR ---
patient up in bed, denies any pain, not in any distress, call light in reach
--- NOTE | 2019-12-04 19:05 | NUR ---
patient received awake, alert, lying quietly in bed. no c/o pain noted. protonix drip infusing without difficulty. call chauhan placed within reach and bed alarm on for safety. patient instructed to call for assistance when needed.
[2019-12-04 20:32] LABS: EOSINOPHILS % (MANUAL) 1 % (0-7); LYMPHOCYTES % (MANUAL) 9 % (19-48); MONOCYTES % (MANUAL) 5 % (3.4-9.0); NEUTROPHILS % (MANUAL) 84 % (40-74)
[2019-12-04 20:33] LABS: PLATELET MORPHOLOGY COMMENT NORMAL
[2019-12-04 20:34] LABS: HYPOCHROMASIA MODERATE; PLATELET ESTIMATE ADEQUATE; POLYCHROMASIA FEW; RBC MORPHOLOGY COMMENT ABNORMAL
[2019-12-04 20:35] LABS: ANISOCYTOSIS MARKED; POIKILOCYTOSIS SLIGHT
[2019-12-04] MEDS: ATORVASTATIN 40 MG TAB PO SCH (20:35)
[2019-12-05] VITALS (8 sets, daily range): BP systolic 100–121; BP diastolic 46–99
[2019-12-05] MEDS: PANTOPRAZOL 40MG/SOD CHL 0.9% 50 ML IV SCH ×5 (00:25→22:04)
[2019-12-05] MEDS: ONDANSETRON HCL INJ 2MG/ML 2ML 2 MG/ML VIAL IV PRN (00:25)
[2019-12-05] MEDS: MORPHINE SULFATE 2 MG/ML SYR 1ML IV PRN (00:25)
--- NOTE | 2019-12-05 00:25 | NUR ---
patient medicated with morphine 0.5mg and zofran 4mg ivp for c/o abd pain 12/21 at this time per patients request.
[2019-12-05 06:43] LABS: BASOPHILS % 0.3 % (0.0-1.0); EOSINOPHILS # (AUTO) 0.1 (0.0-0.4); EOSINOPHILS % 1.6 % (0.0-6.0); HEMATOCRIT 23.8 % (34.2-44.1); HEMOGLOBIN 7.3 g/dL (12.0-16.0); LYMPHOCYTES # (AUTO) 0.9 (1.0-3.2); LYMPHOCYTES % 13.4 % (18.0-39.1); MEAN CORPUSCULAR HGB CONC 30.7 g/dL (31-35); MEAN CORPUSCULAR VOLUME 104.4 fL (81-99); MONOCYTES # (AUTO) 0.7 (0.2-0.8); NEUTROPHILS # (AUTO) 4.9 (2.1-6.9); NEUTROPHILS % 73.3 % (38.7-80.0); PLATELET COUNT 147 x10e3/uL (140-360); RED BLOOD COUNT 2.28 x10e6/uL (3.6-5.1); RED CELL DISTRIBUTION WIDTH 22.3 % (11.7-14.4)
[2019-12-05 07:08] LABS: ALANINE AMINOTRANSFERASE 16 IU/L (0-55); ALBUMIN 2.7 g/dL (3.5-5.0); ALBUMIN/GLOBULIN RATIO 1.1 (0.8-2.0); ALKALINE PHOSPHATASE 66 IU/L (40-150); ANION GAP 9.4 mmol/L (8-16); BLOOD UREA NITROGEN 12 mg/dL (7-26); BUN/CREATININE RATIO 16 (6-25); CALCIUM 8.3 mg/dL (8.4-10.2); CARBON DIOXIDE 26 mmol/L (22-29); CHLORIDE 105 mmol/L (98-107); CREATININE, SERUM 0.76 mg/dL (0.57-1.11); EST GLOMERULAR FILTRATION RATE > 60 ML/MIN (60-); GLUCOSE 89 mg/dL (74-118); POTASSIUM 4.4 mmol/L (3.5-5.1); SODIUM 136 mmol/L (136-145)
--- NOTE | 2019-12-05 08:40 | Progress Note ---
DATE: SUBJECTIVE: This is an 84-year-old female, comes in with acute rectal bleeding. Endoscopy was done. 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 The patient will need surgery and Dr. Emmanuel Zarate is on board. Currently, no complaints. The patient has no chest pain. Shortness of breath is present. OBJECTIVE: LOWER EXTREMITIES: No edema. ABDOMEN: Soft and nontender. CARDIOVASCULAR: Regular rate and rhythm. LABORATORY VALUES: Today's hemoglobin is 7.3, drop has been seen. Hematocrit 23.8. Chemistries are pending today. Coags; INR is 1.08. ASSESSMENT: Ms. Edwina Meyer is with: 1. Colonic mass. 2. Congestive heart failure. 3. Atrial fibrillation. 4. GI bleed, blood loss anemia. 5. History of coronary artery disease. PLAN: Required to have surgery. Cardiology is on board. Surgery, Dr. Zarate and Dr. Yaniv Gerardo for Gastroenterology is on board. Further recommendation per clinical course and we will continue monitor the patient until surgery is decided, and monitor H and Hs every day. MD YI Curry/MODL /[id number]
[2019-12-05] MEDS: METOPROLOL TARTRATE 50 MG TAB PO SCH (09:37)
[2019-12-05] MEDS: FUROSEMIDE 40 MG TAB PO SCH (09:37)
[2019-12-05] MEDS: POTASSIUM CHLORIDE 20 MEQ TAB CR PO SCH ×2 (09:37→17:18)
--- NOTE | 2019-12-05 17:45 | NUR ---
patient up in bed, eating dinner, not in any distress, Dr Yarelis Guy had rounds
[2019-12-05] MEDS: ATORVASTATIN 40 MG TAB PO SCH (21:33)
[2019-12-05] MEDS: MAGNESIUM HYDROXIDE 30 ML UDC PO SCH (21:33)
--- NOTE | 2019-12-05 22:09 | NUR ---
Attempted to obtain informed consent using [employer] for Friday's planned surgery. Patient stated she wants to wait until daughter comes tomorrow.
[2019-12-06] VITALS (8 sets, daily range): BP systolic 96–113; BP diastolic 50–60
--- NOTE | 2019-12-06 01:10 | NUR ---
Dr. Kam Gerardo here to see patient. Made aware of Dr. Zarate's plan for surgery on Friday. No new orders received at this time.
[2019-12-06] MEDS: ONDANSETRON HCL INJ 2MG/ML 2ML 2 MG/ML VIAL IV PRN (01:41)
[2019-12-06] MEDS: MORPHINE SULFATE 2 MG/ML SYR 1ML IV PRN (01:42)
[2019-12-06] MEDS: PANTOPRAZOL 40MG/SOD CHL 0.9% 50 ML IV SCH ×5 (02:59→23:00)
--- NOTE | 2019-12-06 07:00 | NUR ---
Received patient lying in bed with eyes open. Respiration even and unlabored without SOB. Call light in reach.
[2019-12-06 07:53] LABS: HEMATOCRIT 23.5 % (34.2-44.1)
--- NOTE | 2019-12-06 08:50 | Progress Note ---
DATE: SUBJECTIVE: This patient is an 84-year-old female scheduled for surgery tomorrow with Dr. Emmanuel Zarate. 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 Currently, no complaints. The patient is doing well. No chest pain or shortness of breath. No nausea, vomiting, or diarrhea. OBJECTIVE: VITAL SIGNS: Temperature is 97.8, pulse of 80, respirations of 18, blood pressure is 112/58, pulse oximetry of 98%. HEENT: Normocephalic, atraumatic. Pupils reactive to light and accommodation. CVS: S1 and S2 normal. Regular rate and rhythm. ABDOMEN: Nontender, nondistended. EXTREMITIES: No clubbing, no cyanosis, no edema. LABORATORY DATA: Laboratory values yesterday, hemoglobin 7.3 and hematocrit 23.8. ASSESSMENT AND PLAN: An 84-year-old with: 1. Hepatic flexure mass needs surgery. 2. History of systolic heart failure. 3. History of atrial fibrillation, anticoagulation withheld. 4. Acute gastrointestinal bleed. 5. History of coronary artery disease. Continue to hold off anticoagulation and anti-platelet treatment secondary to bleed, life-threatening. 6. Surgical intervention planned. 7. She will need Cardiology clearance and need an echo. Continue monitoring H and H. Further recommendation per clinical course. We will continue to monitor the patient. MD MARYLIN CurryJ/MODL /[id number]
[2019-12-06] MEDS: FUROSEMIDE 40 MG TAB PO SCH (08:59)
[2019-12-06] MEDS: LOSARTAN POTASSIUM 25 MG TAB PO SCH (08:59)
[2019-12-06] MEDS: POTASSIUM CHLORIDE 20 MEQ TAB CR PO SCH ×2 (08:59→18:28)
[2019-12-06] MEDS: METOPROLOL TARTRATE 50 MG TAB PO SCH (09:00)
--- NOTE | 2019-12-06 10:41 | Progress Note ---
DATE: Cardiology Progress Note. SUBJECTIVE: The patient reports ongoing abdominal pain and discomfort with some nausea. Denies any chest pain or shortness of breath. OBJECTIVE: VITAL SIGNS: Temperature 98.8, pulse 84, respiratory rate 18, blood pressure 108/50, oxygen saturation 100% on room air. GENERAL: Alert and oriented x3. Resting comfortably in the chair. Does not appear to be in any acute distress. NECK: Supple. No JVD noted. LUNGS: Clear to auscultation throughout. No wheezing, no rhonchi, or crackles. CARDIOVASCULAR: Regular rate and rhythm. ABDOMEN: Soft, tender with deep palpation. EXTREMITIES: Lower extremity, no edema. 2+ pedal pulses. CARDIOVASCULAR MEDICATIONS: 1. Metoprolol 50 mg p.o. daily. 2. Losartan 25 p.o. daily. 3. Lasix 40 mg p.o. daily. 4. Potassium chloride 20 mEq p.o. b.i.d. 5. Magnesium 90 mL p.o. at bedtime. 6. Atorvastatin 80 p.o. at bedtime. LABORATORY DATA: Hemoglobin 7.0, hematocrit 23.5 this morning. TELEMETRY: Rate controlled, atrial fibrillation. ASSESSMENT: 1. Chronic systolic heart failure. 2. History of atrial fibrillation, not anticoagulated. 3. Acute GI bleed. 4. History of coronary artery disease. PLAN: Continue to hold off anticoagulation and also any anti-platelet therapy, given severe anemia and acute GI bleed. Continue to monitor H and H closely. This patient was noted to be noncompliant with her Coumadin therapy at home since her INR on admission was 1. She is a poor candidate of anticoagulation going forward, given her GI bleed and continued abdominal discomfort. Continue Protonix drip. Continue to maintain this patient on telemetry at all time. Monitor blood pressure closely. We will follow this patient very closely. Dictated by Jane Olivia NP MD HAROON JarvisV/KENROY /[id number]
[2019-12-06] MEDS ORDERED: SODIUM CHLORIDE 0.9% 250ML 250 ML IV ONE (13:00)
[2019-12-06] MEDS: NEOMYCIN SULFATE 500 MG TAB PO SCH ×3 (15:01→23:00)
[2019-12-06] MEDS: ERYTHROMYCIN 500 MG TAB PO SCH ×3 (15:01→23:00)
--- NOTE | 2019-12-06 17:34 | NUR ---
Nutrition Screen Note RD Recommendation for Physician: -Advance diet as tolerated to cardiac diet -If PO <50% on cardiac diet, rec Ensure Enlive BID to promote protein-calorie intake Plan of Care: RD following, monitoring for tolerance and adequacy Nutrition reason for involvement: NPO/ clear liquid x 4 days Primary Diagnose(s): GI bleed PMH: CAD, CHF, Afib, HTN, HLD Ht: 62in Wt: 137.3lb BMI: 25.1kg/m2 IBW: 110lb +/- 10% RD Assessment: (12/06/2019) Chart reviewed. Labs and meds reviewed. 84yo F, who was admitted for GI bleed. Visited pt in the room. Pt was tolerating clear liquid diet. Per RN, pt will be NPO at midnight for lap cholecystectomy tomorrow. LBM 12/05. No chewing or swallowing difficulty noted. No weight loss reported. Will continue to monitor and follow. Current Diet: NPO for surgery Malnutrition Evaluation (12/06/2019) The patient does not meet criteria for a specified degree of malnutrition at this time. Will re-evaluate at follow-up as appropriate. Energy intake: NPO/ clear liquid day 4 Weight loss: Unable to obtain weight history Fat loss: no loss identified Muscle loss: no loss identified Supporting Evidence: Fluid accumulation: no accumulation identified Functional Status: no changes Diet Education Needs Assessment: Diet education not indicated. NPO Nutrition Care Level: low Signed: Geena Aguiar, MS, RD, LD
[2019-12-06] MEDS: ATORVASTATIN 40 MG TAB PO SCH (21:00)
[2019-12-06] MEDS: MAGNESIUM HYDROXIDE 30 ML UDC PO SCH (21:00)
[2019-12-07] VITALS (16 sets, daily range): BP systolic 83–171; BP diastolic 40–81
[2019-12-07] MEDS: PANTOPRAZOL 40MG/SOD CHL 0.9% 50 ML IV SCH ×2 (04:05→08:22)
--- NOTE | 2019-12-07 07:00 | NUR ---
received bedside report. pt is resting in bed, no s/s of distress. call light within reach and instructed pt to call RN for help
--- NOTE | 2019-12-07 07:49 | Progress Note ---
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 The patient is scheduled for surgery today. No complaints. OBJECTIVE: VITAL SIGNS: Temperature is 96.5, pulse of 91, respirations 17, blood pressure is 90/54. VITAL SIGNS: Temperature is 96.5, pulse of 91, respirations of 17, blood pressure is 90/54. HEENT: Normocephalic and atraumatic. Pupils are reactive. CVS: S1 and S2 normal. Regular rate and rhythm. ABDOMEN: Nontender, nondistended. EXTREMITIES: No clubbing, no cyanosis, no edema. MEDICATIONS: Reviewed. The patient is currently on metoprolol, losartan, acetaminophen, and atorvastatin is on board too. LABORATORY STUDIES: Today's hemoglobin 7, hematocrit 23.5. Chemistries; creatinine is normal. ASSESSMENT: Ms. Edwina Meyer with, 1. Chronic systolic heart failure. 2. History of atrial fibrillation. 3. Colonic mass. 4. History of coronary artery disease. Continue current medications. The patient is scheduled for surgery. Further recommendation per clinical course and after surgery. Pathology results from the biopsy are not yet received. MD YI Curry/ROXL /[id number]
[2019-12-07] MEDS ORDERED: SODIUM CHLORIDE 0.9% 250ML 250 ML IV ONE (08:00)
[2019-12-07] MEDS: LOSARTAN POTASSIUM 25 MG TAB PO SCH (08:22)
[2019-12-07] MEDS: POTASSIUM CHLORIDE 20 MEQ TAB CR PO SCH (08:22)
[2019-12-07] MEDS: METOPROLOL TARTRATE 50 MG TAB PO SCH (08:23)
[2019-12-07] MEDS: FUROSEMIDE 40 MG TAB PO SCH (08:23)
[2019-12-07 08:40] LABS: BASOPHILS % 0.3 % (0.0-1.0); EOSINOPHILS # (AUTO) 0.1 (0.0-0.4); EOSINOPHILS % 1.9 % (0.0-6.0); HEMOGLOBIN 7.2 g/dL (12.0-16.0); LYMPHOCYTES # (AUTO) 0.7 (1.0-3.2); LYMPHOCYTES % 9.5 % (18.0-39.1); MEAN CORPUSCULAR HEMOGLOBIN 31.6 pg (28-32); MEAN CORPUSCULAR VOLUME 105.3 fL (81-99); MONOCYTES # (AUTO) 0.9 (0.2-0.8); MONOCYTES % 12.8 % (4.4-11.3); NEUTROPHILS # (AUTO) 5.4 (2.1-6.9); NEUTROPHILS % 75.1 % (38.7-80.0); PLATELET COUNT 149 x10e3/uL (140-360); RED BLOOD COUNT 2.28 x10e6/uL (3.6-5.1)
[2019-12-07 08:53] LABS: ANION GAP 10.4 mmol/L (8-16); BLOOD UREA NITROGEN 10 mg/dL (7-26); BUN/CREATININE RATIO 14 (6-25); CALCIUM 7.7 mg/dL (8.4-10.2); CARBON DIOXIDE 28 mmol/L (22-29); CHLORIDE 103 mmol/L (98-107); EST GLOMERULAR FILTRATION RATE > 60 ML/MIN (60-); GLUCOSE 99 mg/dL (74-118); POTASSIUM 4.4 mmol/L (3.5-5.1); SODIUM 137 mmol/L (136-145)
--- NOTE | 2019-12-07 11:34 | Progress Note ---
DATE: Cardiology Progress Note SUBJECTIVE: The patient is without any new complaints this morning. She states that she feels well, but does endorse some abdominal discomfort. OBJECTIVE: VITAL SIGNS: Temperature 98.8, pulse 74, respiratory rate 22, blood pressure 104/55, oxygen saturation 92% on room air. CARDIOVASCULAR MEDICATIONS: Metoprolol 50 mg p.o. daily, potassium chloride 20 mEq p.o. b.i.d., furosemide 40 mg p.o. daily, losartan 25 p.o. daily, atorvastatin 80 p.o. at bedtime. LABORATORY DATA: WBC 6.71, hemoglobin 7.3, hematocrit 23.8, and platelets 147. Sodium 136, potassium 4.4, BUN 12, creatinine 0.76, GFR greater than 60. On telemetry, atrial fibrillation, rate controlled. GENERAL: Alert and oriented x3, resting comfortably in bed. Does not appear to be in any acute distress. NECK: Supple. No JVD noted. CARDIOVASCULAR: Regular rate and rhythm. LUNGS: Clear to auscultation throughout. No wheezing. No rhonchi or crackles. ABDOMEN: Soft. Tender on the left and right lower quadrants. EXTREMITIES: No edema. 2+ pedal pulses. ASSESSMENT: 1. Chronic systolic heart failure. 2. History of atrial fibrillation, not anticoagulated. 3. Acute gastrointestinal bleed. 4. History of coronary artery disease. PLAN: Continue to hold anticoagulation, also anti-platelet therapy given severe anemia and acute GI bleed noted this admission. This patient has been noncompliant with her Coumadin at home and her INR was 1 on presentation. She is a poor candidate for anticoagulation going forward, given her GI bleed. Continue to maintain on telemetry at all times. Continue to monitor hemoglobin and hematocrit closely. Monitor blood pressure closely. We will continue to follow this patient very closely and continue medical management of the above. Dictated by Jane Olivia, MACY MD HAROON JarvisV/KENROY /[id number]
--- NOTE | 2019-12-07 11:35 | NUR ---
pt off unit for scheduled surgery
[2019-12-07] MEDS ORDERED: HEPARIN SOD/SOD CHLORIDE 1,000 ML ONE (12:18)
--- NOTE | 2019-12-07 12:55 | Progress Note ---
DATE: Cardiology Progress Note SUBJECTIVE: The patient denies any palpitations, chest pain or shortness of breath. OBJECTIVE: VITAL SIGNS: Temperature is 97.9, heart rate 77, respirations are 22, blood pressure is 96/51, ox saturation 100% on 2 L nasal cannula. GENERAL: Well appearing, no apparent distress. CARDIOVASCULAR: Irregularly irregular, normal rate. LUNGS: Clear to auscultation. ABDOMEN: Soft, nontender, nondistended. EXTREMITIES: No edema. CARDIOVASCULAR MEDICATIONS: Reviewed. LABORATORY DATA: Reviewed. Hemoglobin of 7.2. TELEMETRY: Monitoring revealed atrial fibrillation. IMPRESSION: 1. Chronic systolic congestive heart failure. 2. Atrial fibrillation. 3. Acute GI bleed. 4. History of coronary artery disease. RECOMMENDATIONS: Continue to hold anticoagulation. Treatment of GI bleed per GI and primary team. She was noncompliant with her Coumadin with an INR of 1 on admission. She is a poor candidate of anticoagulation going for given her GI bleed. Monitor on telemetry. The patient's blood pressure is on the low side. If needed, can discontinue her losartan. Continue metoprolol for rate control. Koko Rivas DO BM/MODL /[id number]
[2019-12-07] MEDS ORDERED: ACETAMINOPHEN 1000 MG/100 ML 100 ML IV ONE (13:19)
[2019-12-07] MEDS: SODIUM CHLORIDE 0.9% 250ML IRRIG IR SCH ×3 (14:15→22:41)
[2019-12-07] MEDS ORDERED: ONDANSETRON HCL INJ 2MG/ML 2ML 2 MG/ML VIAL IV PRN (14:15)
[2019-12-07] MEDS ORDERED: FENTANYL CITRATE/PF 100MCG/2 ML INJ ONE (14:50)
[2019-12-07] MEDS: PANTOPRAZOLE 40 MG 10ML VIAL IV SCH (15:00)
--- NOTE | 2019-12-07 15:00 | Operative Report ---
DATE OF PROCEDURE: 12/07/2019 SURGEON: Emmanuel Zarate MD PREOPERATIVE DIAGNOSIS: Bleeding tumor of the hepatic flexure. POSTOPERATIVE DIAGNOSIS: Bleeding tumor of the hepatic flexure. OPERATIONS PERFORMED: Exploratory laparotomy and right hemicolectomy. BUCKLE ATTACHER: 1. Ramon Zarate MD. 2. SOM Fink. ANESTHESIA: General. COMPLICATIONS: None. ESTIMATED BLOOD LOSS: 75 mL. DESCRIPTION OF PROCEDURE: With the patient lying in bed in the supine position under good general endotracheal anesthesia, the abdomen was prepped with Betadine solution and draped in the usual manner. A midline incision was made, it was carried down through the subcutaneous tissue and through the midline fascia. The peritoneum was opened and the abdomen was entered. Upon entering the abdominal cavity, exploration revealed there was a palpable mass at the level of hepatic flexure. There was no gross spread of disease and overall appeared to be contained within the colon. The liver did not show any signs of any metastatic disease. There was some distention of the liver consistent perhaps with some heart failure problems. The gallbladder was contracted and was basically one large stone, which obviously has been this way for many years. We decided to leave that alone and just address the issue of the colon mass. The rest of the abdominal exploration did not reveal any other abnormalities. The right colon was then mobilized over the lateral gutter. The right ureter and the duodenum were and preserved. The hepatic flexure was then brought down with the EnSeal device and the stomach and the colon were with the EnSeal device. The terminal ileum and the mid transverse colon were then divided with an application of LAKISHA-75 stapler and the mesentery of the colon was slowly and carefully taken down with the EnSeal device with the larger vessels ligated with 0 silk ties. The specimen was totally removed and sent for pathological examination. After this was done, the anastomosis was then completed with another application of LAKISHA-75 stapler. The remaining opening was closed with a TA-60 stapler. Gloves and instruments were changed. The anastomosis was reinforced with 3-0 silk and the mesenteric rent was closed with a running suture of 2-0 Vicryl. The bowel was then returned back to the abdominal cavity in an cardiac rehabilitation program director fashion. The abdomen was irrigated and hemostasis was ascertained. The abdomen was then closed in layers. The midline fascia and peritoneum were closed with a running suture of #1 Vicryl and the skin was closed with clips. A dressing was applied. The sponge, lap, and needle counts were correct. The patient tolerated the procedure well and returned to the recovery room in stable condition. MD DAIN Lemons/KENROY /[id number]
[2019-12-07] MEDS ORDERED: ACETAMINOPHEN 1000 MG/100 ML IV PRN (16:00)
[2019-12-07] MEDS: HYDROMORPHONE 1MG/1ML INJ IV PRN ×2 (17:32→20:32)
[2019-12-07] MEDS ORDERED: CEFOXITIN 1GM/ D5W 50ML 50 ML IV SCH (18:00)
--- NOTE | 2019-12-07 18:03 | Diagnostic Imaging Report ---
Examination: Single AP view of the chest. COMPARISON: December 02, 2019 INDICATION: Line placement DISCUSSION: Lines/tubes: Right IJ catheter with tip overlying the right atrium. Lungs: Pulmonary venous congestion with scattered airspace opacities. Pleura: Possible small effusions. Heart and mediastinum: Cardiomegaly Bones and soft tissues: No acute bony abnormalities. IMPRESSION: 1. Cardiomegaly with pulmonary venous congestion and scattered airspace opacities. 2. Right IJ catheter with tip overlying the high right atrium. Signed by: Dr. Rm Acevedo M.D. on 12/07/2019 6:00 PM
[2019-12-07] MEDS: CEFOXITIN SOD 1 GM in SODIUM CHLORIDE 0.9% 50ML 50 ML IV SCH (18:45)
[2019-12-07] MEDS: SODIUM CHLORIDE 0.9% 1000ML 1,000 ML IV SCH (18:45)
[2019-12-07] MEDS ORDERED: LIDOCAINE HCL 2% LOCAL INJ 5 ML SDV VIAL INJ ONE (19:41)
[2019-12-07] MEDS ORDERED: ETOMIDATE 2 MG/ML 10 ML INJ IV ONE (19:41)
[2019-12-07] MEDS ORDERED: LABETALOL HCL 5 MG/ML 20ML VIAL ONE (19:41)
[2019-12-07] MEDS ORDERED: SEVOFLURANE INHAL SOLN 250 ML PEN BTL ONE (19:41)
[2019-12-07] MEDS ORDERED: NEOSTIGMINE 1 MG/ML 10ML VIAL ONE (19:41)
[2019-12-07] MEDS ORDERED: ONDANSETRON HCL INJ 2MG/ML 2ML 2 MG/ML VIAL ONE (19:41)
[2019-12-07] MEDS ORDERED: ROCURONIUM BROMIDE 10 MG/ML 5ML VIAL IV ONE (19:41)
[2019-12-07] MEDS ORDERED: DEXAMETHASONE SOD PHOS INJ 4 MG/ML VIAL ONE (19:41)
[2019-12-07] MEDS ORDERED: GLYCOPYRROLATE INJ 0.2 MG/ML VIAL ONE (19:41)
[2019-12-08] VITALS (27 sets, daily range): BP systolic 122–170; BP diastolic 56–101
[2019-12-08] MEDS: CEFOXITIN SOD 1 GM in SODIUM CHLORIDE 0.9% 50ML 50 ML IV SCH (00:07)
[2019-12-08] MEDS: HYDROMORPHONE 1MG/1ML INJ IV PRN ×3 (02:07→21:17)
[2019-12-08] MEDS: SODIUM CHLORIDE 0.9% 250ML IRRIG IR SCH ×6 (02:38→21:49)
[2019-12-08] MEDS: SODIUM CHLORIDE 0.9% 1000ML 1,000 ML IV SCH ×3 (05:15→19:13)
[2019-12-08 06:14] LABS: BASOPHILS % 0.2 % (0.0-1.0); EOSINOPHILS % 0.4 % (0.0-6.0); HEMATOCRIT 33.5 % (34.2-44.1); HEMOGLOBIN 10.9 g/dL (12.0-16.0); LYMPHOCYTES # (AUTO) 0.5 (1.0-3.2); LYMPHOCYTES % 5.9 % (18.0-39.1); MEAN CORPUSCULAR HEMOGLOBIN 32.8 pg (28-32); MEAN CORPUSCULAR HGB CONC 32.5 g/dL (31-35); MEAN CORPUSCULAR VOLUME 100.9 fL (81-99); MONOCYTES # (AUTO) 0.5 (0.2-0.8); MONOCYTES % 5.7 % (4.4-11.3); NEUTROPHILS # (AUTO) 7.4 (2.1-6.9); NEUTROPHILS % 87.3 % (38.7-80.0); PLATELET COUNT 144 x10e3/uL (140-360); RED BLOOD COUNT 3.32 x10e6/uL (3.6-5.1); RED CELL DISTRIBUTION WIDTH 19.9 % (11.7-14.4)
[2019-12-08 06:46] LABS: ANION GAP 10.8 mmol/L (8-16); BLOOD UREA NITROGEN 10 mg/dL (7-26); BUN/CREATININE RATIO 15 (6-25); CALCIUM 8.5 mg/dL (8.4-10.2); CARBON DIOXIDE 25 mmol/L (22-29); CHLORIDE 106 mmol/L (98-107); CREATININE, SERUM 0.67 mg/dL (0.57-1.11); EST GLOMERULAR FILTRATION RATE > 60 ML/MIN (60-); GLUCOSE 108 mg/dL (74-118); POTASSIUM 4.8 mmol/L (3.5-5.1); SODIUM 137 mmol/L (136-145)
[2019-12-08] MEDS: METOPROLOL TARTRATE 50 MG TAB PO SCH (08:49)
--- NOTE | 2019-12-08 14:26 | NUR ---
Pt with decreased urine output to 20 - 25 cc/hr. Spoke with Dr Alejandro. Bladder scan demonstrated 5cc. Order for NS bolus 500ml.
[2019-12-08] MEDS ORDERED: SODIUM CHLORIDE 0.9% 1000ML 500 ML IV ONE (14:30)
--- NOTE | 2019-12-08 14:30 | Progress Note ---
DATE: Cardiology Progress Note SUBJECTIVE: The patient had a laparoscopic hemicolectomy yesterday. Reports mild abdominal pain. Denies any chest pain or palpitations. OBJECTIVE: VITAL SIGNS: Temperature is 98.3, heart rate is 86, respirations are 20, blood pressure is 160/99, oxygen saturation 96% on 3 L nasal cannula. GENERAL: Well appearing, no apparent distress. CARDIOVASCULAR: Irregularly irregular. LUNGS: Clear to auscultation. ABDOMEN: Soft, mildly tender. EXTREMITIES: No edema. TELEMETRY: Monitoring revealed atrial fibrillation with controlled ventricular response. LABORATORY DATA: Reviewed. CARDIOVASCULAR MEDICATIONS: Reviewed. IMPRESSION: 1. Chronic systolic congestive heart failure. 2. Atrial fibrillation. 3. GI bleed. 4. Colonic mass status post hemicolectomy. 5. History of coronary artery disease. RECOMMENDATIONS: Continue to hold anticoagulation. Her heart rate remains controlled on metoprolol. Maintain on telemetry. Treatment of GI bleed and colonic mass per primary and surgical teams. DO NICOL Keating/MODL /[id number]
[2019-12-08] MEDS: PANTOPRAZOLE 40 MG 10ML VIAL IV SCH (15:38)
--- NOTE | 2019-12-08 19:12 | NUR ---
Dr Alejandro notified of continued low urine output. IVF changed to NS at 125cc/hr.
--- NOTE | 2019-12-08 21:00 | NUR ---
DR Yarelis CASTAÑEDA NOTIFIED OF LOW UOP, NEW ORDERS NOTED
[2019-12-08] MEDS ORDERED: LACTATED RINGER'S 1,000 ML INJ ONE (21:15)
--- NOTE | 2019-12-08 22:47 | NUR ---
PATIENT HAS BEEN REPEATEDLY REMOVING OXYGEN AND EKG LEADS THROUGHOUT SHIFT, HAS NOW REMOVED NGT. NGT REPLACED WITH 16 FR TO LEFT NARE, UNABLE TO PASS NGT THROUGH RIGHT NARE ON FIRST ATTEMPTS. SMALL AMOUNF OF BLEEDING NOTED FROM NARES AFTER PLACEMENT. KULDEEP WRIST RESTRAINTS PLACED FOR LINE PROTECTION
[2019-12-09] VITALS (23 sets, daily range): BP systolic 113–163; BP diastolic 58–89
[2019-12-09] MEDS: SODIUM CHLORIDE 0.9% 250ML IRRIG IR SCH ×3 (03:00→10:15)
[2019-12-09 05:38] LABS: BASOPHILS % 0.2 % (0.0-1.0); EOSINOPHILS % 0.4 % (0.0-6.0); HEMATOCRIT 32.6 % (34.2-44.1); HEMOGLOBIN 10.1 g/dL (12.0-16.0); LYMPHOCYTES # (AUTO) 0.5 (1.0-3.2); LYMPHOCYTES % 5.4 % (18.0-39.1); MEAN CORPUSCULAR HEMOGLOBIN 31.4 pg (28-32); MEAN CORPUSCULAR VOLUME 101.2 fL (81-99); MONOCYTES # (AUTO) 0.7 (0.2-0.8); MONOCYTES % 8.6 % (4.4-11.3); NEUTROPHILS # (AUTO) 7.1 (2.1-6.9); NEUTROPHILS % 84.8 % (38.7-80.0); PLATELET COUNT 165 x10e3/uL (140-360); RED BLOOD COUNT 3.22 x10e6/uL (3.6-5.1); RED CELL DISTRIBUTION WIDTH 18.7 % (11.7-14.4)
[2019-12-09 06:04] LABS: ALANINE AMINOTRANSFERASE 22 IU/L (0-55); ALBUMIN 2.4 g/dL (3.5-5.0); ALBUMIN/GLOBULIN RATIO 0.8 (0.8-2.0); ALKALINE PHOSPHATASE 83 IU/L (40-150); ANION GAP 13.5 mmol/L (8-16); BLOOD UREA NITROGEN 11 mg/dL (7-26); BUN/CREATININE RATIO 17 (6-25); CALCIUM 8.9 mg/dL (8.4-10.2); CARBON DIOXIDE 22 mmol/L (22-29); CHLORIDE 110 mmol/L (98-107); CREATININE, SERUM 0.64 mg/dL (0.57-1.11); EST GLOMERULAR FILTRATION RATE > 60 ML/MIN (60-); GLUCOSE 105 mg/dL (74-118); POTASSIUM 4.5 mmol/L (3.5-5.1); SODIUM 141 mmol/L (136-145)
[2019-12-09] MEDS ORDERED: LACTATED RINGER'S 1,000 ML INJ ONE (07:00)
--- NOTE | 2019-12-09 09:19 | Progress Note ---
DATE: SUBJECTIVE: The patient is an 84-year-old female, came in with acute GI bleed, was found to have a colonic mass, status post hemicolectomy by Dr. Zarate. Currently complaining of dry mouth and wants to drink water. No complaints other than that. NG tube in place. OBJECTIVE: VITAL SIGNS: Temperature is 98.6, pulse of 94, respirations of 17, blood pressure is 142/73, pulse oximetry of 97% on 3 L. HEENT: Normocephalic, atraumatic. Pupils are reactive. CVS: S1 and S2 . ABDOMEN: Slightly tender. No distention present. EXTREMITIES: No clubbing, no cyanosis. SCDs present. LABORATORY VALUES: Hemoglobin of 10.1, hematocrit of 32.6, neutrophil count of 7.1. MEDICATIONS: She is on sodium chloride q.4 hours, LR 500 mL bolus was given yesterday, hydromorphone q.3 hours p.r.n., pantoprazole, metoprolol, and Zofran as needed. LABORATORY: Hemoglobin 7.1, hematocrit of 32.6. Chemistries; sodium was 141, potassium 4.5, BUN of 11, creatinine 0.64. The patient's urine output has been decreased 30 mL in the last 12 hours. Iron, TIBC transfer was within normal limits. Iron is . ASSESSMENT: 1. Ms. Edwina Meyer with colonic mass, status post hemicolectomy. Pathology reports pending. 2. Chronic atrial fibrillation. 3. History of gastrointestinal bleed. 4. History of coronary artery disease. PLAN: Continue with current management. We will go ahead and bolus her another 500 mL of LR. Continue with metoprolol for rate control. Again, no anticoagulation. Further recommendation per clinical course. NG tube to be. Bowel sounds are still sluggish. Further recommendation per clinical course. MD YI Curry/ROXL /[id number]
--- NOTE | 2019-12-09 10:47 | Diagnostic Imaging Report ---
EXAMINATION: CHEST SINGLE (PORTABLE) INDICATION: CHF COMPARISON: Chest radiograph 12/07/2019 FINDINGS: LINES/TUBES:Right IJ central venous catheter terminates in the superior vena cava. LUNGS:There is perihilar fullness and indistinctness of the pulmonary vasculature. Left greater than right airspace opacities. PLEURA:No pleural effusion or pneumothorax. MEDIASTINUM:Cardiomediastinal silhouette is stably enlarged. Atherosclerotic calcifications of the thoracic aorta. BONES/SOFT TISSUES:No acute osseous injury. ABDOMEN:No free air under the diaphragm. IMPRESSION: Cardiomegaly and pulmonary interstitial and airspace edema. Signed by: Marley Huber MD on 12/09/2019 10:43 AM
[2019-12-09] MEDS: METOPROLOL TARTRATE 50 MG TAB PO SCH (11:30)
[2019-12-09] MEDS ORDERED: FUROSEMIDE INJ 10 MG/ML 2 ML VIAL IV ONE (12:00)
[2019-12-09] MEDS: SODIUM CHLORIDE 0.9% 1000ML 1,000 ML IV SCH ×3 (12:08→18:39)
--- NOTE | 2019-12-09 13:17 | NUR ---
OK for few/ minimal sips of water. OK to take PO medications with sips of water. Per Dr Yarelis Zarate.
[2019-12-09] MEDS: PANTOPRAZOLE 40 MG 10ML VIAL IV SCH (14:36)
[2019-12-09] MEDS: HYDROMORPHONE 1MG/1ML INJ IV PRN (14:36)
--- NOTE | 2019-12-09 15:35 | Progress Note ---
DATE: Cardiology Progress Note SUBJECTIVE: The patient had low urine output. No chest pain or palpitations. OBJECTIVE: VITAL SIGNS: Temperature is 98.3, heart rate is 89, respirations are 23, blood pressure is 157/67, oxygen saturation 100% on 3 L nasal cannula. GENERAL: Well appearing, no apparent distress. CARDIOVASCULAR: rhythm. Normal rate. LUNGS: Clear to auscultation. ABDOMEN: Soft, mildly tender. EXTREMITIES: No edema. TELEMETRY MONITORING: Reviewed and it shows atrial fibrillation. LABORATORY DATA: Reviewed. Chest x-ray, mild pulmonary congestion. IMPRESSION: 1. Chronic systolic congestive heart failure. 2. Atrial fibrillation. 3. Gastrointestinal bleed. 4. Colonic mass, status post hemicolectomy. 5. History of coronary artery disease. RECOMMENDATIONS: Reasonable to give a dose of intravenous Lasix. Her chest x-ray appears mildly congested. Continue hold anticoagulation. Continue metoprolol for heart rate control. DO NICOL Keating/MODL /[id number]
[2019-12-10] VITALS (9 sets, daily range): BP systolic 92–152; BP diastolic 55–94
[2019-12-10] MEDS: SODIUM CHLORIDE 0.9% 1000ML 1,000 ML IV SCH ×3 (03:54→22:00)
[2019-12-10 05:16] LABS: BASOPHILS % 0.4 % (0.0-1.0); EOSINOPHILS # (AUTO) 0.1 (0.0-0.4); EOSINOPHILS % 0.8 % (0.0-6.0); HEMATOCRIT 31.7 % (34.2-44.1); HEMOGLOBIN 9.5 g/dL (12.0-16.0); LYMPHOCYTES # (AUTO) 0.4 (1.0-3.2); LYMPHOCYTES % 5.4 % (18.0-39.1); MEAN CORPUSCULAR HEMOGLOBIN 31.4 pg (28-32); MEAN CORPUSCULAR VOLUME 104.6 fL (81-99); MONOCYTES # (AUTO) 0.5 (0.2-0.8); NEUTROPHILS # (AUTO) 6.2 (2.1-6.9); NEUTROPHILS % 85.8 % (38.7-80.0); PLATELET COUNT 146 x10e3/uL (140-360); RED BLOOD COUNT 3.03 x10e6/uL (3.6-5.1); RED CELL DISTRIBUTION WIDTH 18.6 % (11.7-14.4)
[2019-12-10 05:37] LABS: ANION GAP 13.2 mmol/L (8-16); BLOOD UREA NITROGEN 12 mg/dL (7-26); BUN/CREATININE RATIO 19 (6-25); CALCIUM 9.3 mg/dL (8.4-10.2); CARBON DIOXIDE 21 mmol/L (22-29); CHLORIDE 114 mmol/L (98-107); CREATININE, SERUM 0.62 mg/dL (0.57-1.11); EST GLOMERULAR FILTRATION RATE > 60 ML/MIN (60-); GLUCOSE 92 mg/dL (74-118); POTASSIUM 4.2 mmol/L (3.5-5.1); SODIUM 144 mmol/L (136-145)
[2019-12-10] MEDS: METOPROLOL TARTRATE 50 MG TAB PO SCH ×2 (09:00→11:05)
[2019-12-10] MEDS: PANTOPRAZOLE 40 MG 10ML VIAL IV SCH (15:54)
[2019-12-10] MEDS: BISACODYL 10 MG SUPP PR SCH (17:42)
[2019-12-10] MEDS ORDERED: FUROSEMIDE INJ 10 MG/ML 2 ML VIAL IV ONE (18:15)
[2019-12-10] MEDS ORDERED: FUROSEMIDE INJ 10 MG/ML 4 ML VIAL IV SCH (18:35)
--- NOTE | 2019-12-10 18:43 | NUR ---
pt remained calm and stable throughout shift, daughter at bedside. MD made aware of I/O. new order recvd
--- NOTE | 2019-12-10 20:07 | Progress Note ---
DATE: SUBJECTIVE: The patient continues to have low volume output. The patient has been evaluated by Cardiology and also continuously been seen by surgery, complains of thirst. OBJECTIVE: VITAL SIGNS: Temperature 97.9, pulse of 83, respirations of 18, blood pressure is 121/94, pulse oximetry 100% on 2 L of oxygen. HEENT: Normocephalic. CVS: S1 and S2 normal. Regular rate and rhythm. ABDOMEN: Soft, tenderness present in the surgical sites. No edema present. Chest x-ray shows mild pulmonary congestion. ASSESSMENT: 1. Colonic mass, status post hemicolectomy. 2. Chronic systolic heart failure. 3. Atrial fibrillation. 4. History of coronary artery disease. PLAN: Dose of IV Lasix was given by Cardiology. We will continue to monitor the patient. Further recommendation per clinical course. We will keep her in ICU for right now. Edi Alejandro MD ASJ/MODL /[id number]
[2019-12-10] MEDS: HYDROMORPHONE 1MG/1ML INJ IV PRN (21:48)
[2019-12-11] VITALS (10 sets, daily range): BP systolic 130–155; BP diastolic 62–94
[2019-12-11] MEDS: SODIUM CHLORIDE 0.9% 1000ML 1,000 ML IV SCH (02:00)
[2019-12-11] MEDS: BISACODYL 10 MG SUPP PR SCH (08:07)
[2019-12-11] MEDS: METOPROLOL TARTRATE 50 MG TAB PO SCH (08:08)
--- NOTE | 2019-12-11 14:15 | Progress Note ---
DATE: Cardiology Progress Note SUBJECTIVE: The patient feeling better. Mild abdominal discomfort. No chest pain or palpitations. OBJECTIVE: VITAL SIGNS: Temperature is 97.7, heart rate 81, respirations are 18, blood pressure is 131/67, and oxygen saturation 100% on 3 L nasal cannula. GENERAL: Well-appearing, in no apparent distress. CARDIOVASCULAR: Irregularly irregular. LUNGS: Clear to auscultation. ABDOMEN: Soft, mildly tender, nondistended. EXTREMITIES: No edema. CARDIOVASCULAR MEDICATIONS: Reviewed. LABORATORY DATA: Reviewed. Telemetry monitoring was personally reviewed by myself and shows atrial fibrillation with controlled ventricular response. IMPRESSION: 1. Chronic systolic congestive heart failure. 2. Atrial fibrillation. 3. Gastrointestinal bleed. 4. Colonic mass, status post hemicolectomy. 5. History of coronary artery disease. RECOMMENDATIONS: Continue current cardiovascular medications. Monitor on telemetry. Avoid anticoagulation given recent GI bleed and surgery. We will continue to follow along. Koko Rivas DO BM/MODL /[id number]
[2019-12-11] MEDS: PANTOPRAZOLE 40 MG 10ML VIAL IV SCH (15:37)
[2019-12-11] MEDS: ACETAMINOPHEN/CODEINE 300MG - 30MG TAB PO PRN ×2 (15:37→20:30)
[2019-12-12] VITALS (9 sets, daily range): BP systolic 106–157; BP diastolic 61–106
[2019-12-12] MEDS: SODIUM CHLORIDE 0.9% 1000ML 1,000 ML IV SCH (07:13)
[2019-12-12] MEDS: METOPROLOL TARTRATE 50 MG TAB PO SCH ×2 (09:59→16:38)
[2019-12-12] MEDS: ACETAMINOPHEN/CODEINE 300MG - 30MG TAB PO PRN (10:00)
--- NOTE | 2019-12-12 11:45 | NUR ---
Patient arrived to the unit @ 1139- Patient in stable condition, no s/s of distress noted. no pain voiced. Telemetry applied- A-fib @ 85. Flowers 16Fr with dark tree urine draining into the bag. SCDs applied along with Air mattress applied and working. Edema noted to the upper and lower extremities. Bed in lowest position and locked. Call light within reach.
--- NOTE | 2019-12-12 12:00 | NUR ---
Patient transferred to [facility] floor room 202
[2019-12-12] MEDS ORDERED: FUROSEMIDE INJ 10 MG/ML 2 ML VIAL IV ONE ×2 (12:30→17:30)
--- NOTE | 2019-12-12 13:38 | Progress Note ---
DATE: Cardiology Progress Note SUBJECTIVE: Feeling well from a cardiovascular standpoint. OBJECTIVE: VITAL SIGNS: Temperature is 98.5, heart rate is 83, respirations are 22, blood pressure is 132/81, oxygen saturation 100% on 3 L nasal cannula. GENERAL: Well appearing in no apparent distress. CARDIOVASCULAR: Irregularly irregular. Normal rate. LUNGS: Clear to auscultation. ABDOMEN: Soft, mildly tender, nondistended. EXTREMITIES: No edema. CARDIOVASCULAR MEDICATIONS: Reviewed. LABORATORY DATA: Reviewed. TELEMETRY: Monitoring revealed atrial fibrillation with occasional rapid ventricular response; however for the most part is controlled. ASSESSMENT: 1. Chronic systolic congestive heart failure. 2. Chronic atrial fibrillation. 3. Gastrointestinal bleed. 4. Colonic mass, status post hemicolectomy. 5. Coronary artery disease. PLAN: 1. Continue current cardiovascular medications including metoprolol. Can increase this as needed for heart rate control. Monitor on telemetry. No anticoagulation at this point in time given recent GI bleed and surgery. We will continue to follow along with you. Koko Rivas DO BM/MODL /[id number]
[2019-12-12] MEDS: ALBUTEROL SULF 0.083% NEB SOLN 3 ML NEB NEB PRN ×3 (13:40→23:50)
[2019-12-12] MEDS: PANTOPRAZOLE 40 MG 10ML VIAL IV SCH (14:15)
--- NOTE | 2019-12-12 19:05 | NUR ---
Completed bedside shift report with the oncoming night nurse. Patient in stable condition, no s/s of distress noted. Telemetry applied. Bed in lowest position and locked. Call light within reach.
--- NOTE | 2019-12-12 20:00 | NUR ---
Received change of shift report from AM nurse. Walking rounds completed.
--- NOTE | 2019-12-12 22:31 | NUR ---
Patient received at bath. Had a BM black in color. Patient in pain. Will treat pain.
[2019-12-13] VITALS (7 sets, daily range): BP systolic 96–149; BP diastolic 57–92
--- NOTE | 2019-12-13 00:19 | NUR ---
Dr Celestine Gerardo on the floor to see patient. Will f/u with any orders. Continue monitor.
[2019-12-13] MEDS: ACETAMINOPHEN/CODEINE 300MG - 30MG TAB PO PRN ×2 (03:44→15:00)
[2019-12-13] MEDS: HYDROMORPHONE 1MG/1ML INJ IV PRN (06:34)
[2019-12-13] MEDS: METOPROLOL TARTRATE 50 MG TAB PO SCH ×2 (08:21→16:13)
[2019-12-13] MEDS: ALBUTEROL SULF 0.083% NEB SOLN 3 ML NEB NEB PRN ×3 (08:25→19:30)
--- NOTE | 2019-12-13 08:27 | NUR ---
Paged to notify decline in health. Patient AAOX2 to person and place. SOB with exertion SPO2 98% on 3L NC. Generalized swelling. See orders
[2019-12-13 09:48] LABS: BASOPHILS % 0.3 % (0.0-1.0); EOSINOPHILS % 0.5 % (0.0-6.0); HEMATOCRIT 28.7 % (34.2-44.1); HEMOGLOBIN 8.9 g/dL (12.0-16.0); LYMPHOCYTES # (AUTO) 0.6 (1.0-3.2); LYMPHOCYTES % 9.7 % (18.0-39.1); MEAN CORPUSCULAR HEMOGLOBIN 31.1 pg (28-32); MEAN CORPUSCULAR VOLUME 100.3 fL (81-99); MONOCYTES # (AUTO) 0.7 (0.2-0.8); MONOCYTES % 12.3 % (4.4-11.3); NEUTROPHILS # (AUTO) 4.5 (2.1-6.9); NEUTROPHILS % 76.5 % (38.7-80.0); PLATELET COUNT 161 x10e3/uL (140-360); RED BLOOD COUNT 2.86 x10e6/uL (3.6-5.1); RED CELL DISTRIBUTION WIDTH 17.2 % (11.7-14.4)
[2019-12-13 10:10] LABS: ALANINE AMINOTRANSFERASE 21 IU/L (0-55); ALBUMIN 2.1 g/dL (3.5-5.0); ALBUMIN/GLOBULIN RATIO 0.7 (0.8-2.0); ALKALINE PHOSPHATASE 68 IU/L (40-150); ANION GAP 8.3 mmol/L (8-16); BLOOD UREA NITROGEN 6 mg/dL (7-26); BUN/CREATININE RATIO 11 (6-25); CALCIUM 8.7 mg/dL (8.4-10.2); CARBON DIOXIDE 34 mmol/L (22-29); CHLORIDE 100 mmol/L (98-107); CREATININE, SERUM 0.55 mg/dL (0.57-1.11); EST GLOMERULAR FILTRATION RATE > 60 ML/MIN (60-); GLUCOSE 114 mg/dL (74-118); POTASSIUM 3.3 mmol/L (3.5-5.1); SODIUM 139 mmol/L (136-145)
--- NOTE | 2019-12-13 12:12 | Diagnostic Imaging Report ---
EXAM: CHEST 2 VIEWS DATE: 12/13/2019 11:30 AM INDICATION: Shortness of breath COMPARISON: 12/09/2019 FINDINGS: Right IJ coursing central venous catheter identified in stable position. Again identified are increased interstitial markings and perihilar fullness, not significant changed from the prior examination. There is no evidence for new large focal consolidation or pneumothorax. There is a small right and suspected trace left pleural effusion. The cardiac silhouette remains prominent. No acute osseous abnormality is identified. IMPRESSION: Stable cardiomegaly and prominent interstitial markings suggestive of interstitial edema. Small right and suspected trace left pleural effusion. Signed by: Dr. Daniel Pulliam MD on 12/13/2019 12:09 PM
--- NOTE | 2019-12-13 14:18 | NUR ---
aware of chest x-ray results. See orders.
[2019-12-13] MEDS: PANTOPRAZOLE 40 MG 10ML VIAL IV SCH (15:00)
[2019-12-13] MEDS ORDERED: POTASSIUM CHLORIDE 20 MEQ TAB CR PO STA (15:27)
--- NOTE | 2019-12-13 15:29 | NUR ---
aware BNP 445.4. Orders for lasix received.
[2019-12-13] MEDS ORDERED: FUROSEMIDE INJ 10 MG/ML 2 ML VIAL IV ONE (15:30)
--- NOTE | 2019-12-13 17:07 | NUR ---
Nutrition Intervention Note RD Recommendation(s) for Physician: - Continue current diet as tolerated - Recommend Ensure Compact TID Plan of Care: RD following, monitoring for tolerance and adequacy, ONS rec's Nutrition reason for involvement: follow up RD Assessment: 12/12: Follow up. Pt discussed during MDR, RN reports decline recently and that pt not eating much today, but tolerating diet. Pt sleeping at time of visit, spoke with daughter at bedside who speaks limited Vietnamese. RD to order Ensure Compact TID for adequacy, discussed with RN. Chart reviewed, pt s/p ex-lap and R hemicolectomy on 12/06. Will continue to monitor. (12/06/2019) Chart reviewed. Labs and meds reviewed. 84yo F, who was admitted for GI bleed. Visited pt in the room. Pt was tolerating clear liquid diet. Per RN, pt will be NPO at midnight for lap cholecystectomy tomorrow. LBM 12/05. No chewing or swallowing difficulty noted. No weight loss reported. Will continue to monitor and follow. Primary Diagnose(s): GI bleed PMH: CAD, CHF, Afib, HTN, HLD GI: LBM 12/11 Skin: abdominal incision Labs: 12/12: Na 139, K 3.3, BUN 6, Cr 0.55, Gluc 114, POC Gluc 87 Meds: dilaudid, zofran, lasix, protonix Ht: 62in Wt: 137.3lb BMI: 25.1kg/m2 IBW: 110lb +/- 10% Malnutrition Evaluation (12/06/2019) The patient does not meet criteria for a specified degree of malnutrition at this time. Will re-evaluate at follow-up as appropriate. Energy intake: NPO/ clear liquid day 4 Weight loss: Unable to obtain weight history Fat loss: no loss identified Muscle loss: no loss identified Supporting Evidence: Fluid accumulation: no accumulation identified Functional Status: no changes Nutrition Prescription (Diet Order): Regular diet Estimated Nutritional Needs: [id number] calories/day (30-35 kcal/kg CBW) 63-84 g protein/day (1.5-2 g pro/kg CBW) Diet Adequacy: Not meeting calorie needs, Not meeting protein needs Diet Tolerance: tolerating po Diet Education Needs Assessment: Diet education not indicated; patient on regular diet. Nutrition Care Level: Moderate Nutrition Diagnosis: Inadequate energy and protein intake related to current medical condition as evidenced by decreased po intake after R hemicolectomy. Goal: Patient will meet 75-100% of estimated needs by follow up Progress: not progressing Interventions: -General healthful diet, Commercial beverage, Recommended Modifications, Collaboration with other providers Monitoring/Evaluation: -Total energy intake, Total protein intake, Liquid supplement Signed: Jaqueline Patel RD, LD, [facility]
--- NOTE | 2019-12-13 17:59 | Progress Note ---
DATE: 12/13/2019 Cardiology Progress Note. SUBJECTIVE: The patient denies chest pain, but she is complaining of shortness of breath. OBJECTIVE: VITAL SIGNS: Temperature 97.9 degrees, pulse 89, respiratory rate 17, blood pressure 127/61, and oxygen saturation 100% on 3 L nasal cannula. GENERAL: Obese woman, frail appearing. LUNGS: Clear to auscultation bilaterally. No wheezes or crackles. CARDIOVASCULAR: Normal rate. Irregularly irregular rhythm. No murmur. Normal S1, S2. ABDOMEN: Soft and nontender. EXTREMITIES: Anasarca. CARDIAC MEDICATIONS: 1. Lasix 20 mg IV b.i.d. 2. Metoprolol tartrate 50 mg p.o. b.i.d. LABORATORY DATA: WBC 5.87, hemoglobin 8.9, hematocrit 28.7, platelets 161. Sodium 139, potassium 3.3, chloride 100, CO2 of 34, BUN 6, creatinine 0.55. BNP 445. TELEMETRY: Personally reviewed and interpreted revealing atrial fibrillation, rate controlled. IMPRESSION: 1. Acute on chronic systolic heart failure. 2. Chronic atrial fibrillation. 3. GI bleeding. 4. Colonic mass, status post hemicolectomy. 5. Coronary artery disease. RECOMMENDATIONS: The patient's BNP is elevated and she is diffusely edematous. Start scheduled IV Lasix. Replete electrolytes. Monitor creatinine. Continue metoprolol for rate control. Given her recent surgery and GI bleeding, no anticoagulation at this time. Recommend resuming atorvastatin. Thank you for this consult. We will continue to follow. Edwina Meza MD ABS/MODL /[id number]
--- NOTE | 2019-12-13 19:19 | NUR ---
Report given to oncoming nurse of patient's status. Resting in bed. No s/s of acute distress noted. Side rails upx3, call light within reach.
--- NOTE | 2019-12-13 20:20 | Progress Note ---
DATE: SUBJECTIVE: The patient is an 84-year-old female, who came in with acute GI bleeds, who was found to have a hepatic flexure mass, status post surgery by Dr. Zarate. The patient is transferred out of ICU. Had some shortness of breath, was found to be in fluid overload. Lasix has been given. The patient is feeling better and Dilaudid has been stopped. OBJECTIVE: VITAL SIGNS: Temperature is 98.4, pulse of 105, respirations 16, blood pressure is 111/57, and pulse oximetry of 99%. HEENT: Normocephalic and atraumatic. Pupils are reactive. CVS: S1 and S2, tachy and irregular. ABDOMEN: Nontender, nondistended. EXTREMITIES: No clubbing, no cyanosis. Positive for trace edema. LABORATORY VALUES: White count was 5.7, hemoglobin of 8.9, hematocrit of 28.7, and platelet count of 162. Chemistries show a sodium 139, potassium 3.3, BUN is 6, and creatinine 0.55. BNP was 5.4. ASSESSMENT: 1. Ms. Edwina Langston with chronic systolic congestive heart failure. Continue cardiovascular medication, has been started on Lasix. 2. Chronic atrial fibrillation. No current anticoagulation secondary to GI surgery. Plan is to hold back the colonic mass, status post hemicolectomy. Pathology result shows adenocarcinoma, moderately differentiated and invasive. PLAN: We will continue to monitor the patient and give her Lasix, stabilize her cardiovascular system and will need Oncology referral. We will continue to monitor the patient. Further recommendation per clinical course. MD YI Curry/MODL /[id number]
--- NOTE | 2019-12-13 21:47 | NUR ---
Received change of shift report from AM nurse. Walking rounds completed.
[2019-12-14] VITALS (8 sets, daily range): BP systolic 114–165; BP diastolic 62–85
[2019-12-14] MEDS: ACETAMINOPHEN/CODEINE 300MG - 30MG TAB PO PRN (05:59)
--- NOTE | 2019-12-14 06:04 | NUR ---
Patient c/o pain. Given pain meds as ordered by MD. Continue monitor.
[2019-12-14] MEDS: ALBUTEROL SULF 0.083% NEB SOLN 3 ML NEB NEB PRN ×3 (06:50→19:40)
[2019-12-14] MEDS ORDERED: FUROSEMIDE INJ 10 MG/ML 2 ML VIAL IV ONE (07:50)
--- NOTE | 2019-12-14 08:01 | NUR ---
RECEIVED SNF ORDER, SPOKE WITH CM, PT IS NONFUNDED SO NO PAYER SOURCE FOR A PLACEMENT.
--- NOTE | 2019-12-14 08:02 | Progress Note ---
DATE: SUBJECTIVE: The patient is an 84-year-old female with adenocarcinoma, status post resection of hemicolectomy. The patient is still continues to get some shortness of breath. Pulmonary edema noted on the chest x-ray. Lasix has been started. The patient is still short of breath and has edematous. OBJECTIVE: VITAL SIGNS: Temperature is 97.9, pulse of 110, respirations of 18, blood pressure is 120/65, pulse oximetry of 98% on 2 L of nasal cannula, getting breathing treatments at this time. HEENT: Normocephalic and atraumatic. Pupils are reactive. CVS: S1 and S2 irregular. ABDOMEN: Soft, nontender. Binder in place. EXTREMITIES: 2+ edema. LABORATORY VALUES: Yesterday's hemoglobin is 8.9, hematocrit 28.7. Chemistry shows sodium of 139, potassium of 3.3, BUN of 6 and creatinine 0.55. BNP is 445, ASSESSMENT: Ms. Langston with: 1. Acute on chronic systolic heart failure. Start back on Lasix treatment. Follow I's and O's. 2. Chronic atrial fibrillation. 3. Status post hemicolectomy for adenocarcinoma. 4. Coronary artery disease. PLAN: Surgery has okay to discharge the patient home. SNF recommendation will be done. The case management will follow up with this. We will continue to monitor the patient's lytes. Further recommendation per clinical course. MD YI Curry/MODL /[id number]
[2019-12-14 08:34] LABS: ANION GAP 11.6 mmol/L (8-16); BLOOD UREA NITROGEN 10 mg/dL (7-26); BUN/CREATININE RATIO 16 (6-25); CALCIUM 9.1 mg/dL (8.4-10.2); CARBON DIOXIDE 32 mmol/L (22-29); CHLORIDE 99 mmol/L (98-107); CREATININE, SERUM 0.64 mg/dL (0.57-1.11); EST GLOMERULAR FILTRATION RATE > 60 ML/MIN (60-); GLUCOSE 97 mg/dL (74-118); POTASSIUM 3.6 mmol/L (3.5-5.1); SODIUM 139 mmol/L (136-145)
[2019-12-14] MEDS ORDERED: FUROSEMIDE INJ 10 MG/ML 2 ML VIAL IV SCH (09:00)
--- NOTE | 2019-12-14 09:04 | NUR ---
Informed Dr. Alejandro that pt is uninsured. Will be unable to place for SNF.
[2019-12-14] MEDS: METOPROLOL TARTRATE 50 MG TAB PO SCH ×2 (09:56→18:18)
[2019-12-14] MEDS ORDERED: ONDANSETRON HCL 4 MG ORAL DISINTEGRATING TAB PO PRN (13:45)
[2019-12-14] MEDS: FUROSEMIDE INJ 10 MG/ML 2 ML VIAL IV SCH ×2 (15:07→21:41)
[2019-12-14] MEDS: PANTOPRAZOLE SOD 40 MG TABEC PO SCH (15:07)
--- NOTE | 2019-12-14 16:10 | Progress Note ---
DATE: 12/14/2019 Cardiology progress note SUBJECTIVE: To the patient denies chest pain. Her shortness of breath has improved. OBJECTIVE: VITAL SIGNS: Temperature 97.6 degrees, pulse 67, respiratory rate 20, blood pressure 122/85, and oxygen saturation 96% on 2 L nasal cannula. GENERAL: An obese woman, frail appearing, awake and alert. LUNGS: Clear to auscultation bilaterally. No wheezes or crackles. CARDIOVASCULAR: Normal rate. Irregularly irregular rhythm. No murmur. Normal S1, S2. ABDOMEN: Soft, nontender. EXTREMITIES: Anasarca. CARDIAC MEDICATIONS: 1. Furosemide 20 mg IV b.i.d. 2. Metoprolol tartrate 50 mg p.o. b.i.d. LABORATORY DATA: Sodium 139, potassium 3.6, chloride 99, CO2 of 32, BUN 10, and creatinine 0.64. TELEMETRY: Telemetry was personally reviewed and interpreted revealing atrial fibrillation, rate controlled. IMPRESSION: 1. Acute on chronic systolic heart failure. 2. Chronic atrial fibrillation. 3. Gastrointestinal bleeding as colonic mass, status post hemicolectomy. 4. Coronary artery disease. RECOMMENDATIONS: The patient's respiratory status has improved, but she remains edematous. Increase IV Lasix to t.i.d. Replete electrolytes and monitor creatinine. Continue metoprolol for rate control. Given her recent surgery and GI bleeding, no anticoagulation at this time. Recommend resuming outpatient atorvastatin. Thank you for this consult. We will continue to follow. Edwina Meza MD ABS/MODL /[id number]
--- NOTE | 2019-12-14 19:02 | NUR ---
Report given to film processing shift supervisor. Patient lying in bed with eyes closed. O2 2L via NC in placed. Indwelling urinary catheter intact, secured to leg. Right IJ 2 lumen intact, in placed. Respiration even and unlabored. Call light in reach.
--- NOTE | 2019-12-14 19:30 | NUR ---
Patient asleep in bed. Arousable by tactile stimuli. No signs of pain or respiratory distress. Flowers catheter draining light tree clear urine. Safety measures implemented. Patient instructed to call for assistance when needed. Call light within reach.
[2019-12-15] VITALS (8 sets, daily range): BP systolic 132–181; BP diastolic 60–98
[2019-12-15] MEDS: ALBUTEROL SULF 0.083% NEB SOLN 3 ML NEB NEB PRN ×4 (02:15→19:50)
[2019-12-15 05:49] LABS: ANION GAP 11.1 mmol/L (8-16); BLOOD UREA NITROGEN 9 mg/dL (7-26); BUN/CREATININE RATIO 16 (6-25); CALCIUM 8.7 mg/dL (8.4-10.2); CARBON DIOXIDE 38 mmol/L (22-29); CHLORIDE 95 mmol/L (98-107); CREATININE, SERUM 0.58 mg/dL (0.57-1.11); EST GLOMERULAR FILTRATION RATE > 60 ML/MIN (60-); GLUCOSE 111 mg/dL (74-118); POTASSIUM 3.1 mmol/L (3.5-5.1); SODIUM 141 mmol/L (136-145)
--- NOTE | 2019-12-15 07:21 | NUR ---
ASSUMED CARE. RESTING IN BED WITH EYES CLOSED. ACYANOTIC. 02 AT 2L NASAL CANNULA. NO DISTRESS NOTED. CALL LIGHT IN REACH. SIDE RAILS UP X2. BED LOW AND LOCKED.
[2019-12-15] MEDS: METOPROLOL TARTRATE 50 MG TAB PO SCH ×2 (08:27→16:00)
[2019-12-15] MEDS: FUROSEMIDE INJ 10 MG/ML 2 ML VIAL IV SCH ×3 (08:27→21:30)
[2019-12-15] MEDS ORDERED: POTASSIUM CHLORIDE 10MEQ EA PO ONE (10:30)
[2019-12-15] MEDS: PANTOPRAZOLE SOD 40 MG TABEC PO SCH (16:00)
[2019-12-15] MEDS ORDERED: METOPROLOL TARTRATE 25 MG TAB PO SCH (17:00)
--- NOTE | 2019-12-15 19:41 | Progress Note ---
DATE: 12/15/2019 Cardiology Progress Note SUBJECTIVE: The patient denies chest pain. She reports that her shortness of breath has improved. OBJECTIVE: VITAL SIGNS: Temperature 98.3 degrees, pulse 116, respiratory rate 18, blood pressure 147/98, and oxygen saturation 95% on 2 L nasal cannula. GENERAL: Elderly woman, no acute distress. Obese, frail appearing. LUNGS: Clear to auscultation bilaterally. No wheezes or crackles. CARDIOVASCULAR: Normal rate, irregularly irregular. No murmur. Normal S1 and S2. ABDOMEN: Soft, nontender. EXTREMITIES: Anasarca is present. CARDIAC MEDICATIONS: 1. Furosemide 20 mg IV t.i.d. 2. Metoprolol tartrate 50 mg p.o. b.i.d. LABORATORY DATA: Sodium 141, potassium 3.1, chloride 95, CO2 38, BUN 9, creatinine 0.58. TELEMETRY: Telemetry was personally reviewed and interpreted, revealing atrial fibrillation. IMPRESSION: 1. Acute on chronic systolic heart failure. 2. Chronic atrial fibrillation. 3. Gastrointestinal bleeding. 4. Colonic mass, status post hemicolectomy. 5. Coronary artery disease. RECOMMENDATIONS: The patient's respiratory status is improving, but she remains edematous. Continue IV Lasix t.i.d. She has had good urine output. Replete electrolytes and monitor creatinine. CO2 is climbing, monitor closely. May need to add Diamox if this increases further. Increase metoprolol for heart rate control. Given her recent surgery and GI bleeding, no anticoagulation at this time. Resume outpatient atorvastatin. Thank you for this consult. We will continue to follow. Edwina Meza MD ABS/MODL /[id number]
[2019-12-16] VITALS (8 sets, daily range): BP systolic 147–161; BP diastolic 86–96
[2019-12-16] MEDS: ALBUTEROL SULF 0.083% NEB SOLN 3 ML NEB NEB PRN ×4 (01:40→19:50)
[2019-12-16] MEDS: METOPROLOL TARTRATE 50 MG TAB PO SCH ×2 (08:52→17:00)
[2019-12-16] MEDS: FUROSEMIDE INJ 10 MG/ML 2 ML VIAL IV SCH ×3 (08:52→21:00)
--- NOTE | 2019-12-16 10:47 | NUR ---
AWAKE AND ALERT. ACYANOTIC. DAUGHTER PRESENT AT BEDSIDE. O2 DECREASED FROM 3L TO 2L VIA NASAL CANNULA. NO DISTRESS NOTED. WILL RECHECK O2 SAT IN 15 MINUTES.
--- NOTE | 2019-12-16 13:14 | Progress Note ---
DATE: 12/16/2019 Cardiology Progress Note SUBJECTIVE: The patient denies chest pain. She reports her shortness of breath has improved. OBJECTIVE: VITAL SIGNS: Temperature 98 degrees, pulse 81, respiratory rate 17, blood pressure 155/94, and oxygen saturation 100% on 3 L nasal cannula. GENERAL: Elderly woman, no acute distress. Obese, frail-appearing. LUNGS: Clear to auscultation bilaterally. No wheezes or crackles. CARDIOVASCULAR: Normal rate. Irregularly irregular. No murmur. Normal S1 and S2. ABDOMEN: Soft and nontender. EXTREMITIES: Anasarca is present, but improving. CARDIAC MEDICATIONS: Metoprolol tartrate 75 mg p.o. b.i.d. and furosemide 20 mg IV t.i.d. LABORATORY DATA: None today. Telemetry was personally reviewed and interpreted, revealing atrial fibrillation. IMPRESSION: 1. [id number] systolic heart failure. 2. Chronic atrial fibrillation. 3. Gastrointestinal bleeding. 4. Colonic mass, status post hemicolectomy. 5. Coronary artery disease. RECOMMENDATIONS: The patient's respiratory status is improving, but she remains edematous. Continue IV Lasix as scheduled. Replete electrolytes. Monitor creatinine. She is currently not on anticoagulation given her recent surgery and GI bleeding. We will clarify with GI and Surgery when she can be restarted on anticoagulation. Restart the patient's outpatient atorvastatin. Thank you for this consult. We will continue to follow. Edwina Meza MD ABS/MODL /[id number]
[2019-12-16 13:15] LABS: ANION GAP 13.6 mmol/L (8-16); BLOOD UREA NITROGEN 10 mg/dL (7-26); BUN/CREATININE RATIO 13 (6-25); CALCIUM 9.4 mg/dL (8.4-10.2); CARBON DIOXIDE 38 mmol/L (22-29); CHLORIDE 85 mmol/L (98-107); CREATININE, SERUM 0.78 mg/dL (0.57-1.11); EST GLOMERULAR FILTRATION RATE > 60 ML/MIN (60-); GLUCOSE 143 mg/dL (74-118); POTASSIUM 3.6 mmol/L (3.5-5.1); SODIUM 133 mmol/L (136-145)
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
--- NOTE | 2019-12-16 14:43 | NUR ---
PT RESTING IN BED WITH EYES CLOSED. ACYANOTIC. NO DISTRESS NOTED. PATIENT'S O2 SAT WAS 97 PERCENT ON 1L NASAL CANNULA AT REST. NASAL CANNULA REMOVED FROM PATIENT. DAUGHTER PRESENT AT BEDSIDE. INSTRUCTED TO USE CALL LIGHT FOR ASSISTANCE. VERBALIZED UNDERSTANDING.
[2019-12-16] MEDS: PANTOPRAZOLE SOD 40 MG TABEC PO SCH (15:00)
[2019-12-16 15:01] LABS: INR 1.06; PROTHROMBIN TIME 14.5 seconds (11.9-14.5)
--- NOTE | 2019-12-16 16:05 | NUR ---
PATIENT RESTING IN BED WITH EYES CLOSED. EQUAL RISE AND FALL OF CHEST NOTED WITH EACH RESPIRATION. O2 SAT AT 87 PERCENT. NASAL CANNULA REAPPLIED AT RATE OF 1.5L. PATIENT ENCOURAGED TO TAKE DEEP BREATHS. O2 SAT AT 95 PERCENT. NO DISTRESS NOTED. DAUGHTER PRESENT AT BEDSIDE. CALL LIGHT IN REACH. SIDE RAILS UP X2. BED LOW.
[2019-12-16] MEDS: WARFARIN SOD 2.5 MG TAB PO SCH (17:00)
--- NOTE | 2019-12-16 17:38 | NUR ---
RESTING IN BED WITH EYES CLOSED. ACYANOTIC. O2 AT 1.5L. NO DISTRESS NOTED. ATTEMPT TO AWAKEN PATIENT FROM SLEEP FOR ADMINISTRATION OF SCHEDULED MEDICATION UNSUCCESSFUL. PATIENT RESPONDED TO TOUCH BUT EYES REMAINED CLOSED. WATER OFFERED BUT PATIENT CLOSED LIPS TOGETHER AND REFUSED. ENCOURAGED TO TAKE MEDICATION. PATIENT REFUSED. SIDE RAILS UP X2. CALL LIGHT IN REACH.
[2019-12-16] MEDS ORDERED: MAGNESIUM HYDROXIDE 30 ML UDC PO STA (23:51)
[2019-12-17] VITALS (8 sets, daily range): BP systolic 112–132; BP diastolic 59–78
[2019-12-17] MEDS ORDERED: MAGNESIUM HYDROXIDE 30 ML UDC PO STA (05:08)
[2019-12-17] MEDS: ALBUTEROL SULF 0.083% NEB SOLN 3 ML NEB NEB PRN ×3 (07:18→19:50)
--- NOTE | 2019-12-17 07:48 | Progress Note ---
DATE: SUBJECTIVE: The patient is an 84-year-old female, who came in with GI bleed, status post blood transfusion, status post colonoscopy with the finding of adenocarcinoma, status post resection and hemicolectomy by Dr. Zarate. The patient is currently feeling somewhat better with diuresis. Diuresis continues to be on IV diuresis with by Dr. Meza. Complains of some eye irritation. OBJECTIVE: VITAL SIGNS: Temperature is afebrile, pulse of 103, respirations 16, blood pressure is 113/78, pulse oximetry of 97%. In's and out's, the patient has a negative balance of 1470. HEENT: Normocephalic and atraumatic. Pupils are reactive. CVS: S1 and S2. Regular. ABDOMEN: Nontender and nondistended and soft. EXTREMITIES: Edema is improving. MEDICATIONS: Currently on Lasix t.i.d. IV, acetaminophen q.4 hours, warfarin 2.5 mg daily has been reinstated, metoprolol 75 mg twice a day has been reinstated, pantoprazole daily for GI prophylaxis. LABORATORY VALUES: White count was normal at 5.87, hemoglobin 8.9, hematocrit of 28.7 on 1st. Yesterday, the patient's sodium was 133, BUN of 10 and creatinine 0.78, glucose is 143. ASSESSMENT AND PLAN: Ms. Bland with: 1. Adenocarcinoma, status post resection. 2. Chronic atrial fibrillation, start back on anticoagulation. 3. Gastrointestinal bleeding. We will check her H and H today. Status post hemicolectomy. 4. Coronary artery disease. PLAN: To continue monitoring her INR, H and H and physical therapy has been instituted. The patient will need physical therapy outpatient and also need Oncology services for patient. This has been conveyed to the family. Case management working on discharge planning. MD YI Curry/ROXL /[id number]
[2019-12-17 08:11] LABS: HEMATOCRIT 30.4 % (34.2-44.1); HEMOGLOBIN 9.9 g/dL (12.0-16.0)
[2019-12-17 08:22] LABS: INR 1.16; PROTHROMBIN TIME 15.6 seconds (11.9-14.5)
[2019-12-17 08:50] LABS: FERRITIN 841.34 ng/mL (4.63-204.00)
[2019-12-17] MEDS: GENTAMICIN SULFATE 0.3% OP 5 ML BTL OP SCH ×3 (09:00→21:00)
[2019-12-17] MEDS: FUROSEMIDE INJ 10 MG/ML 2 ML VIAL IV SCH ×3 (09:02→21:00)
[2019-12-17] MEDS: METOPROLOL TARTRATE 50 MG TAB PO SCH ×2 (09:04→17:52)
--- NOTE | 2019-12-17 13:00 | NUR ---
WOUND CARE INITIAL CONSULT FOR 84 YO FEMALE ADMITTED TO [facility] WITH A HX ANEMIA, LGI BLEED AND UIB. TODD 19 ON CONSERVATIVE PUP STATUS AND INTERVENTIONS SURFACE: ALTERNATING PRESSURE MATTRESS. LABS: WBC- 5.87 HGB- 9.9 GLUCOSE- 143 SKIN ASSESSMENT COMPLETE, PATIENT PRESENTS WITH A NON BLANCHABLE REDNESS PRESENT TO SACRUM MEASURING 2CM X 0.3 CM. RECOMMENDATIONS: NURSING TO CLEAN NON BLANCHABLE REDNESS WITH NORMAL SALINE, PAT DRY WITH 4X4 GAUZE, APPLY VENELEX AND COVER WITH ALLEVYN FOAM DAILY. NURSING TO CONTINUE TO MONITOR PATIENT AND KEEP SKIN CLEAN AND FREE FROM STOOL OR IRRITATING MOISTURE AND CONTINUE TO FOLLOW MODERATE PUP INTERVENTIONS DAILY. NURSING TO CONTINUE REPOSITION PT SIDE TO SIDE EVERY TWO HOURS AND TO ENCOURAGE PT TO SELF REPOSITION IN BED NEEDED. NURSING TO CONTINUE TO APPLY ALTERNATING PRESSURE MATTRESS. NURSING TO CONTINUE TO OFFLOAD FEET AND HEELS AT ALL TIMES WITH PILLOW SUSPENSION WHEN IN BED. NURSING TO ASSIST PT OUT OF BED FOR MEALS AND NEEDED. NURSING TO CONTINUE TO ASSIST WITH PT NUTRITONAL SUPPLEMENTS TO ENSURE PROPER REQUIREMENTS FOR HEALING. NURSING TO RE- CONSULT WOUND CARE NEEDED. Addendum: 12/17/19 at 1537 by Sue Paige RN Amended: Links added.
--- NOTE | 2019-12-17 14:24 | Progress Note ---
DATE: 12/17/2019 Cardiology Progress Note SUBJECTIVE: The patient denies chest pain. She reports her shortness of breath and swelling have improved. OBJECTIVE: VITAL SIGNS: Temperature 99.8 degrees, pulse 79, respiratory rate 19, blood pressure 112/59, and oxygen saturation 95% on nasal cannula. GENERAL: An elderly man, obese, frail-appearing, no acute distress. Awake and alert. LUNGS: Clear to auscultation bilaterally. No wheezes or crackles. CARDIOVASCULAR: Normal rate. Irregularly irregular. No murmur. Normal S1, S2. ABDOMEN: Soft, nontender. EXTREMITIES: Anasarca is present, but improving. CARDIAC MEDICATIONS: Metoprolol tartrate 75 mg p.o. b.i.d., furosemide 20 mg IV t.i.d., warfarin 2.5 mg p.o. daily, and atorvastatin 20 mg p.o. at bedtime. LABORATORY DATA: Hemoglobin 9.9 and hematocrit 30.4. PT 15.6, INR 1.16. Sodium 133, potassium 3.6, chloride 85, CO2 of 38, BUN 10, and creatinine 0.78. TELEMETRY: Telemetry was personally reviewed and interpreted revealing atrial fibrillation. IMPRESSION: 1. Acute on chronic systolic heart failure. 2. Chronic atrial fibrillation. 3. Gastrointestinal bleeding. 4. Colonic mass, status post hemicolectomy. 5. Coronary artery disease. RECOMMENDATIONS: The patient's volume status is markedly improved. Continue IV diuretics, likely transition to p.o. in the morning. Monitor creatinine. Replete electrolytes. Continue current cardiac medications otherwise. Warfarin has been restarted for CVA prophylaxis. Monitor for signs and symptoms of bleeding. Thank you for this consult. We will continue to follow. Edwina Meza MD ABS/MODL /[id number]
--- NOTE | 2019-12-17 15:44 | NUR ---
Nutrition Intervention Note RD Recommendation(s) for Physician: - Continue current diet as tolerated and encourage PO intake - Continue to recommend Ensure TID Plan of Care: RD following, monitoring for tolerance and adequacy, ONS rec's Nutrition reason for involvement: follow up RD Assessment: 12/16: Follow up. Chart reviewed. It is noted that pt consumed 25-50% of meals yesterday. Pt is also ordered Ensure TID. Encourage PO intake. Will continue to monitor. 12/12: Follow up. Pt discussed during MDR, RN reports decline recently and that pt not eating much today, but tolerating diet. Pt sleeping at time of visit, spoke with daughter at bedside who speaks limited Welsh. RD to order Ensure Compact TID for adequacy, discussed with RN. Chart reviewed, pt s/p ex-lap and R hemicolectomy on 12/06. Will continue to monitor. (12/06/2019) Chart reviewed. Labs and meds reviewed. 84yo F, who was admitted for GI bleed. Visited pt in the room. Pt was tolerating clear liquid diet. Per RN, pt will be NPO at midnight for lap cholecystectomy tomorrow. LBM 12/05. No chewing or swallowing difficulty noted. No weight loss reported. Will continue to monitor and follow. Primary Diagnose(s): GI bleed PMH: CAD, CHF, Afib, HTN, HLD GI: LBM 12/11 Skin: abdominal incision Labs: 12/15: Na 133, K 3.6, BUN 13.6, Glu 143 12/12: Na 139, K 3.3, BUN 6, Cr 0.55, Gluc 114, POC Gluc 87 Meds: metoprolol, lasix, warfarin, protonix, Lipitor, zofran Ht: 62in Wt: 92 lbs (12/10) 137.3lb (12/05) Suspect weight error BMI: 16.8 kg/m2 IBW: 110lb +/- 10% Malnutrition Evaluation (12/06/2019) The patient does not meet criteria for a specified degree of malnutrition at this time. Will re-evaluate at follow-up as appropriate. Energy intake: <75% of estimated energy needs for > 7 days Weight loss: Unable to obtain weight history Fat loss: no loss identified Muscle loss: no loss identified Supporting Evidence: Fluid accumulation: no accumulation identified Functional Status: no changes Nutrition Prescription (Diet Order): Regular diet Estimated Nutritional Needs: 5414-8882 calories/day (30-35 kcal/kg CBW) Weigh used: 92 lbs 63-84 g protein/day (1.5-2 g pro/kg CBW) Weight used: 92 lbs Diet Adequacy: Not meeting calorie needs, Not meeting protein needs Diet Tolerance: tolerating po Diet Education Needs Assessment: Diet education not indicated; patient on regular diet. Nutrition Care Level: Moderate Nutrition Diagnosis: Inadequate energy and protein intake related to current medical condition as evidenced by decreased po intake after R hemicolectomy. Goal: Patient will meet 75-100% of estimated needs by follow up Progress: not progressing Interventions: -General healthful diet, Commercial beverage Monitoring/Evaluation: -Total energy intake, Total protein intake, Liquid supplement Signed: Esperanza Holt RD, LD
[2019-12-17] MEDS: BALSAM PERU/CASTOR OIL 60 GM OINT...G. TP SCH (16:00)
--- NOTE | 2019-12-17 16:09 | NUR ---
CALLED [facility] TO ASK PHYSICIAN POWER PLANT ENGINEER IF PATIENT CAN BE DISCHARGED, DR. DIAZ IS PRESENTLY POWER PLANT ENGINEER.
[2019-12-17] MEDS: PANTOPRAZOLE SOD 40 MG TABEC PO SCH (16:29)
--- NOTE | 2019-12-17 17:10 | NUR ---
CALLED AND LEFT MESSAGE FOR JOSE BLAS AT [phone] TO REQUEST OKAY FOR DISCHARGE.
--- NOTE | 2019-12-17 17:23 | NUR ---
SPOKE TO Pinky BLAS, SHE STATED THAT PATIENT NEEDS LASIX 20 MG PO AND TO CONTINUE COUMADIN DAILY, THE PATIENT WILL ALSO NEED AN INR CHECK IN ONE WEEK AND MD FOLLOW UP, PATIENT CAN BE DISCHARGED FROM A CARDIAC STANDPOINT.
--- NOTE | 2019-12-17 17:39 | NUR ---
ATTEMPTED TO REMOVE OXYGEN, PATIENT'S HEART RATE WENT INTO 120-130, RESPIRATIONS CLIMBED TO 22-24, SPO2 DROPPED TO 90% ON ROOM AIR AT REST WHILE IN BED.
[2019-12-17] MEDS: WARFARIN SOD 2.5 MG TAB PO SCH (17:50)
--- NOTE | 2019-12-17 19:37 | Diagnostic Imaging Report ---
EXAMINATION: CHEST SINGLE (PORTABLE) INDICATION: Edema follow-up. COMPARISON: Chest radiograph 12/07/2019 FINDINGS: LINES/TUBES:Right IJ central venous catheter is faintly visualized, however, appears unchanged in position. LUNGS:Bilateral pulmonary venous congestion. Increased density in the lower lobes, particularly on the right, may reflect increasing consolidation. PLEURA: Bilateral pleural effusions. No pneumothorax. MEDIASTINUM:Cardiomediastinal silhouette is stably enlarged. Atherosclerotic calcifications of the thoracic aorta. BONES/SOFT TISSUES:No acute osseous injury. ABDOMEN:No free air under the diaphragm. IMPRESSION: Interval increase in patchy density in the right lower lobe concerning for increasing consolidation or possibly superimposed effusion. Bilateral pleural effusions. Bilateral pulmonary venous congestion and central pulmonary edema are unchanged. Signed by: Dr. Kallie Desir M.D. on 12/17/2019 7:34 PM
[2019-12-17] MEDS: ATORVASTATIN 20 MG TAB PO SCH (21:00)
[2019-12-18] VITALS (7 sets, daily range): BP systolic 104–131; BP diastolic 58–73
[2019-12-18] MEDS: ALBUTEROL SULF 0.083% NEB SOLN 3 ML NEB NEB PRN ×3 (06:20→19:38)
[2019-12-18] MEDS: IRON SUCROSE 100 MG in SODIUM CHLORIDE 0.9% 100 ML 100 ML IV SCH (08:00)
[2019-12-18 08:48] LABS: BASOPHILS % 0.3 % (0.0-1.0); EOSINOPHILS # (AUTO) 0.1 (0.0-0.4); EOSINOPHILS % 0.4 % (0.0-6.0); HEMATOCRIT 30.3 % (34.2-44.1); HEMOGLOBIN 9.6 g/dL (12.0-16.0); LYMPHOCYTES # (AUTO) 0.7 (1.0-3.2); LYMPHOCYTES % 4.4 % (18.0-39.1); MEAN CORPUSCULAR HEMOGLOBIN 30.2 pg (28-32); MEAN CORPUSCULAR HGB CONC 31.7 g/dL (31-35); MEAN CORPUSCULAR VOLUME 95.3 fL (81-99); MONOCYTES # (AUTO) 1.1 (0.2-0.8); MONOCYTES % 6.8 % (4.4-11.3); NEUTROPHILS # (AUTO) 13.9 (2.1-6.9); NEUTROPHILS % 87.5 % (38.7-80.0); PLATELET COUNT 279 x10e3/uL (140-360); RED BLOOD COUNT 3.18 x10e6/uL (3.6-5.1); RED CELL DISTRIBUTION WIDTH 16.5 % (11.7-14.4)
[2019-12-18 08:59] LABS: INR 1.15; PROTHROMBIN TIME 15.4 seconds (11.9-14.5)
[2019-12-18] MEDS: BALSAM PERU/CASTOR OIL 60 GM OINT...G. TP SCH (09:00)
[2019-12-18] MEDS: FUROSEMIDE INJ 10 MG/ML 2 ML VIAL IV SCH ×3 (09:04→22:38)
[2019-12-18] MEDS: ONDANSETRON HCL INJ 2MG/ML 2ML 2 MG/ML VIAL IV SCH ×3 (09:04→16:04)
[2019-12-18] MEDS: METOPROLOL TARTRATE 50 MG TAB PO SCH ×2 (09:05→16:05)
[2019-12-18] MEDS: PANTOPRAZOLE SOD 40 MG TABEC PO SCH ×2 (09:06→16:04)
[2019-12-18] MEDS: GENTAMICIN SULFATE 0.3% OP 5 ML BTL OP SCH ×3 (09:06→21:00)
[2019-12-18 09:08] LABS: ANION GAP 11.3 mmol/L (8-16); BLOOD UREA NITROGEN 14 mg/dL (7-26); BUN/CREATININE RATIO 18 (6-25); CALCIUM 8.8 mg/dL (8.4-10.2); CARBON DIOXIDE 39 mmol/L (22-29); CHLORIDE 85 mmol/L (98-107); CREATININE, SERUM 0.79 mg/dL (0.57-1.11); EST GLOMERULAR FILTRATION RATE > 60 ML/MIN (60-); GLUCOSE 133 mg/dL (74-118); POTASSIUM 3.3 mmol/L (3.5-5.1); SODIUM 132 mmol/L (136-145)
--- NOTE | 2019-12-18 09:48 | Progress Note ---
DATE: SUBJECTIVE: The patient is an 84-year-old female with acute congestive heart failure, status post colon resection for adenocarcinoma. The patient is deconditioned, was taken off her oxygen yesterday, desatted to 88 percentile, and oxygen was reinstated. The patient is on Lasix IV 20 mg 3 times a day and restarted back on her warfarin. Her atorvastatin for her coronary artery disease and metoprolol has been also reinstated. Currently, the patient is weak and apparent shortness of breath on exertion, did not do or refuse the physical therapy yesterday. Family has been notified on the status and continue to work with family on discharge planning. OBJECTIVE: VITAL SIGNS: Temperature is 98.7, pulse of 106, respirations of 18, blood pressure is 118/73, and pulse oximetry of 98% on 2 L of oxygen. HEENT: On examination, the patient is alert and oriented x3, very comfortable at this time, not moving. HEENT: Normocephalic and atraumatic. Pupils reactive. CVS: S1 and S2. Irregular. ABDOMEN: Soft, nontender, nondistended. Binder present. EXTREMITIES: No clubbing, no cyanosis. Positive for trace edema. MEDICATIONS: 1. Atorvastatin. 2. Gentamicin for eye drop. 3. Lasix 20 mg three times a day IV, has a Flowers catheter. 4. Albuterol nebs q.6 hours. 5. Metoprolol 75 mg b.i.d. 6. Warfarin 2.5 mg. 7. Pantoprazole for GI prophylaxis. LABORATORY VALUES: Hemoglobin is 9.9 and 30.4 yesterday. Today's labs are pending. Chemistries, yesterday showed iron was 12, percentage saturation of 8, . Coags 1.16 yesterday. Currently, the patient is on Coumadin 2.5. ASSESSMENT: 1. Status post hemicolectomy for adenocarcinoma. 2. Acute on chronic systolic heart failure with decompensation, with poor ejection fraction. 3. Chronic atrial fibrillation. 4. Coronary artery disease. PLAN: Continue with IV diuretics. We will probably transition her to p.o. depending on Cardiology. Creatinine will be monitored. Potassium and electrolytes will replete as needed. INR is trending up. We are going to check INRs daily. As for as O2 status, the patient might need O2 as an outpatient. The patient to be discharged with O2. Further recommendation per clinical course. We will continue to monitor the patient and also work with family on discharge planning. MD YI Curry/MODL /[id number]
--- NOTE | 2019-12-18 12:19 | NUR ---
Received order for home O2. Spoke to pt's daughter at bedside with granddaughter Betsy on the phone. CM discussed self pay prices. They agree to [facility]. Choice letter signed and placed in chart. Copy to pt's daughter. Referral faxed to [facility] at [phone]. [facility] and will come by and deliver portable tank today.
[2019-12-18] MEDS: WARFARIN SOD 2.5 MG TAB PO SCH (16:04)
--- NOTE | 2019-12-18 22:37 | NUR ---
USED CULTURAL LINK TO DISCUSS MEDICATIONS[place] [id number].
[2019-12-18] MEDS: ATORVASTATIN 20 MG TAB PO SCH (22:38)
[2019-12-19] VITALS (9 sets, daily range): BP systolic 98–131; BP diastolic 56–76
--- NOTE | 2019-12-19 05:20 | NUR ---
CENTRAL LINE CARE PROVIDED AND CHG BATH GIVEN. OQUENDO CARE PROVIDED VIA CASTILE SOAP WIPES. TOLERATED PROCEDURES WELL.
[2019-12-19] MEDS: ALBUTEROL SULF 0.083% NEB SOLN 3 ML NEB NEB PRN ×3 (06:15→19:42)
[2019-12-19 06:24] LABS: BASOPHILS % 0.3 % (0.0-1.0); EOSINOPHILS # (AUTO) 0.1 (0.0-0.4); EOSINOPHILS % 1.1 % (0.0-6.0); HEMATOCRIT 27.2 % (34.2-44.1); HEMOGLOBIN 8.6 g/dL (12.0-16.0); LYMPHOCYTES # (AUTO) 0.7 (1.0-3.2); LYMPHOCYTES % 5.6 % (18.0-39.1); MEAN CORPUSCULAR HEMOGLOBIN 30.5 pg (28-32); MEAN CORPUSCULAR HGB CONC 31.6 g/dL (31-35); MEAN CORPUSCULAR VOLUME 96.5 fL (81-99); MONOCYTES # (AUTO) 1.1 (0.2-0.8); MONOCYTES % 8.5 % (4.4-11.3); NEUTROPHILS # (AUTO) 10.9 (2.1-6.9); NEUTROPHILS % 83.9 % (38.7-80.0); PLATELET COUNT 292 x10e3/uL (140-360); RED BLOOD COUNT 2.82 x10e6/uL (3.6-5.1); RED CELL DISTRIBUTION WIDTH 16.2 % (11.7-14.4)
[2019-12-19 07:01] LABS: INR 1.13; PROTHROMBIN TIME 15.2 seconds (11.9-14.5)
--- NOTE | 2019-12-19 07:05 | NUR ---
REPORT GIVEN TO DAYSHIFT NURSE. RESTING IN BED. IN STABLE CONDITION. NO SIGNS OF IV INFILTRATION. BED LOCKED AND IN LOW POSITION. CALL LIGHT WITHIN REACH. BED ALARM ACTIVATED.
[2019-12-19 07:09] LABS: ANION GAP 13.1 mmol/L (8-16); BLOOD UREA NITROGEN 17 mg/dL (7-26); BUN/CREATININE RATIO 22 (6-25); CALCIUM 8.7 mg/dL (8.4-10.2); CARBON DIOXIDE 38 mmol/L (22-29); CHLORIDE 85 mmol/L (98-107); CREATININE, SERUM 0.77 mg/dL (0.57-1.11); EST GLOMERULAR FILTRATION RATE > 60 ML/MIN (60-); GLUCOSE 95 mg/dL (74-118); POTASSIUM 3.1 mmol/L (3.5-5.1); SODIUM 133 mmol/L (136-145)
[2019-12-19] MEDS: ONDANSETRON HCL INJ 2MG/ML 2ML 2 MG/ML VIAL IV SCH ×3 (07:30→16:37)
[2019-12-19] MEDS: PANTOPRAZOLE SOD 40 MG TABEC PO SCH ×2 (07:30→16:37)
[2019-12-19] MEDS: GENTAMICIN SULFATE 0.3% OP 5 ML BTL OP SCH ×3 (09:00→21:03)
[2019-12-19] MEDS ORDERED: POTASSIUM CHLORIDE 10MEQ EA PO SCH (09:00)
[2019-12-19] MEDS: FUROSEMIDE INJ 10 MG/ML 2 ML VIAL IV SCH ×3 (09:00→21:03)
--- NOTE | 2019-12-19 09:37 | Progress Note ---
DATE: SUBJECTIVE: An 84-year-old female, who came in with acute gastrointestinal bleeding, found to have an adenocarcinoma, status post resection. The patient is status post resection and continues to be fatigued. The patient also has hypoxia, has a history of congestive heart failure with chronic atrial fibrillation with poor EF. 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 OBJECTIVE: VITAL SIGNS: The patient's vital signs are stable. Blood pressure is 103/58, respiration of 18, pulse oximeter 96% on 1 L of oxygen. HEENT: Normocephalic and atraumatic. Pupils are reactive. CVS: S1 and S2. Regular. ABDOMEN: Soft, nontender, and nondistended. EXTREMITIES: No clubbing. No cyanosis. No edema. LABORATORY VALUES: White count is down to 13,000, hemoglobin of 8.6, and hematocrit 27.2. Chemistries; sodium is 132, potassium is 3.3, BUN of 14, creatinine is 0.79, and glucose is 133. Iron was 12, TIBC 155, and ferritin 841.34. MICROBIOLOGY: No data available. ASSESSMENT: Ms. Edwina Meyer with: 1. Blood loss anemia, status post hemicolectomy for adenocarcinoma. 2. Rghma-vs-cinjjuf systolic heart failure. 3. Chronic atrial fibrillation. 4. Coronary artery disease. PLAN: Replace potassium. Replace iron. Continue to work with her on therapy. Possible discharge. The patient and family to be worked with on discharge. White count elevated. Medications reviewed. We will check her volume status. The patient's I's and O's still negative 140 at this time. Further recommendation per clinical course. The patient has indwelling catheter, which can be removed too. Further recommendation per clinical course. We will continue to monitor the patient. She has had 2 bowel movements. MD YI Curry/KENROY /[id number]
[2019-12-19] MEDS: IRON SUCROSE 100 MG in SODIUM CHLORIDE 0.9% 100 ML 100 ML IV SCH (09:52)
[2019-12-19] MEDS: METOPROLOL TARTRATE 50 MG TAB PO SCH ×2 (09:54→16:38)
[2019-12-19] MEDS: BALSAM PERU/CASTOR OIL 60 GM OINT...G. TP SCH (09:54)
[2019-12-19] MEDS: WARFARIN SOD 2.5 MG TAB PO SCH (16:38)
[2019-12-19] MEDS: ATORVASTATIN 20 MG TAB PO SCH (21:03)
[2019-12-20] VITALS: BP 115/54
[2019-12-20 04:00] VITALS: BP 112/54
[2019-12-20 05:59] LABS: BASOPHILS % 0.5 % (0.0-1.0); EOSINOPHILS # (AUTO) 0.1 (0.0-0.4); EOSINOPHILS % 1.6 % (0.0-6.0); HEMATOCRIT 26.2 % (34.2-44.1); HEMOGLOBIN 8.5 g/dL (12.0-16.0); LYMPHOCYTES # (AUTO) 0.7 (1.0-3.2); MEAN CORPUSCULAR HEMOGLOBIN 31.3 pg (28-32); MEAN CORPUSCULAR HGB CONC 32.4 g/dL (31-35); MEAN CORPUSCULAR VOLUME 96.3 fL (81-99); MONOCYTES # (AUTO) 1.2 (0.2-0.8); MONOCYTES % 14.5 % (4.4-11.3); NEUTROPHILS # (AUTO) 6.1 (2.1-6.9); NEUTROPHILS % 73.5 % (38.7-80.0); PLATELET COUNT 319 x10e3/uL (140-360); RED BLOOD COUNT 2.72 x10e6/uL (3.6-5.1); RED CELL DISTRIBUTION WIDTH 16.2 % (11.7-14.4)
[2019-12-20 06:19] LABS: INR 1.08; PROTHROMBIN TIME 14.7 seconds (11.9-14.5)
[2019-12-20] MEDS: ALBUTEROL SULF 0.083% NEB SOLN 3 ML NEB NEB PRN (06:50)
--- NOTE | 2019-12-20 07:00 | NUR ---
BEDSIDE SHIFT REPORT RECEIVED FROM ZIPPER LINING FOLDER RN. PT DENIES NEEDS AT THIS TIME.
[2019-12-20 08:08] VITALS: BP 110/46
[2019-12-20] MEDS ORDERED: POTASSIUM CHLORIDE 10MEQ EA PO SCH (09:00)
[2019-12-20] MEDS: FUROSEMIDE INJ 10 MG/ML 2 ML VIAL IV SCH ×2 (09:12→15:04)
[2019-12-20] MEDS: PANTOPRAZOLE SOD 40 MG TABEC PO SCH ×2 (09:12→16:47)
[2019-12-20] MEDS: ONDANSETRON HCL INJ 2MG/ML 2ML 2 MG/ML VIAL IV SCH ×3 (09:12→16:47)
[2019-12-20] MEDS: IRON SUCROSE 100 MG in SODIUM CHLORIDE 0.9% 100 ML 100 ML IV SCH (09:12)
[2019-12-20] MEDS: BALSAM PERU/CASTOR OIL 60 GM OINT...G. TP SCH (09:13)
[2019-12-20] MEDS: METOPROLOL TARTRATE 50 MG TAB PO SCH ×2 (09:13→16:49)
[2019-12-20] MEDS: GENTAMICIN SULFATE 0.3% OP 5 ML BTL OP SCH ×2 (09:13→15:04)
[2019-12-20 09:16] VITALS: BP 110/46
[2019-12-20 12:07] VITALS: BP 114/52
[2019-12-20 15:23] VITALS: BP 107/50
[2019-12-20] MEDS ORDERED: WARFARIN SOD 3 MG TAB PO SCH (17:00)
[2019-12-20] MEDS ORDERED: ZOFRAN4 MG PO ×2 (17:58→18:03)
[2019-12-20] MEDS ORDERED: ALBUTEROL0.63 MG/3 (18:04)
[2019-12-20] MEDS ORDERED: FERROUS SULFAT325 MG (18:06)
[2019-12-20] MEDS ORDERED: COLACE100 MG PO (18:06)
[2019-12-20] MEDS ORDERED: WARFARIN SODIUM3 MG PO (18:07)
[2019-12-20] MEDS ORDERED: METOPROLOL TART25 MG PO (18:08)
[2019-12-20] MEDS ORDERED: PROTONIX20 MG PO (18:09)
[2019-12-20] MEDS ORDERED: FUROSEMIDE40 MG PO (18:10)
[2019-12-20] MEDS ORDERED: POTASSIUM CHLO20 ME1 (18:11)
[2019-12-20] MEDS ORDERED: ATORVASTATIN CA20 MG PO (18:11)
--- NOTE | 2019-12-20 18:15 | NUR ---
OQUENDO CATH REMOVED AND PT HAS VOIDED. RT IJ REMOVED. TIP INTACT, BLEEDING STOPPED AND DRESSING IN PLACE.
--- NOTE | 2019-12-20 19:56 | Progress Note ---
DATE: SUBJECTIVE: An 84-year-old female with a history of adenocarcinoma, status post resection with hypoxemia with congestive heart failure, chronic. The patient also has history of atrial fibrillation and also iron deficiency anemia. The patient is feeling better, ready to be discharge. The patient and daughter have been given strict information to be seen by the outside doctor or primary care physician in 2 days to check a PT/INR, which is critical and to be done in 2 days. The patient also has to follow up with her oncologist through the [facility] to be followed up with adenocarcinoma that was resected. PHYSICAL EXAMINATION: GENERAL: The patient is alert and oriented x3, in good spirits. VITAL SIGNS: Temperature is 97.1, pulse of 89, respirations of 16, blood pressure is 107/50, and pulse oximetry of 99%. HEENT: Normocephalic, atraumatic. Pupils are reactive. CVS: S1 and S2, irregular. ABDOMEN: Nontender, nondistended. EXTREMITIES: No clubbing, no cyanosis. Trace edema. LABORATORY DATA: White count is 8.23 much better, hemoglobin is 8.5, hematocrit 26.2, and platelet count . Sodium is 133, potassium 3.3, BUN of 17, creatinine of 0.77. Iron is very low. ASSESSMENT: Ms. Edwina Meyer with atrial fibrillation, history of adenocarcinoma, hypertension, hyperlipidemia, history of congestive heart failure, and history of hypoxemia. The patient has to be discharged home with oxygen and will be done today. The patient has to follow up with her primary care physician in 2 days, especially in lieu of needing oxygen and also her INR to be therapeutic and to be monitored on a regular basis. DISCHARGE MEDICATIONS: Warfarin sodium 3 mg once a day, which has to be monitored in 2 days. Metoprolol 75 mg twice a day. Zofran 4 mg as needed for nausea. Pantoprazole 40 mg once a day in the morning. Lasix 40 mg twice a day. Potassium chloride 20 mEq daily. Iron tablets 325 mg once a day. Colace 100 mg once a day. Atorvastatin 20 mg once a day. Zofran 4 mg as needed. The patient also gets ProAir q.4 hours as needed for shortness of breath. The patient again given strict ER warnings and also asked to go to her primary care physician to check her INRs. Further recommendation per clinical course. We will continue monitor the patient and also needs an Oncology Referral as an outpatient to check for adenocarcinoma and followup for adenocarcinoma. MD YI Curry/MODL /[id number]
== END 2019-12-20 19:25 | disposition home or self-care (01) | DRG 329 ==
LOC: ER 11:24 → ERHOLD 13:44 → MED/SURG3 17:12 → ICU 12-07 15:35 → IMCU 12-11 18:40 → MED/SURG2 12-12 11:46
PROVIDERS: ADMIT Family Medicine; ATTEND Family Medicine
PROC: 30233N1 Transfusion of Nonautologous Red Blood Cells into Peripheral Vein, Percutaneous Approach (ICD-10-PCS; 2019-12-02)
PROC: 0DJ08ZZ Inspection of Upper Intestinal Tract, Via Natural or Artificial Opening Endoscopic (ICD-10-PCS; 2019-12-02)
PROC: 0DBF8ZX Excision of Right Large Intestine, Via Natural or Artificial Opening Endoscopic, Diagnostic (ICD-10-PCS; 2019-12-03)
PROC: 0DTF0ZZ Resection of Right Large Intestine, Open Approach (ICD-10-PCS; principal; 2019-12-07 12:00)
DX: C18.5 Malignant neoplasm of splenic flexure (principal); I50.23 Acute on chronic systolic (congestive) heart failure; I48.20 Chronic atrial fibrillation, unspecified; D62 Acute posthemorrhagic anemia; I11.0 Hypertensive heart disease with heart failure; I25.10 Atherosclerotic heart disease of native coronary artery without angina pectoris; D50.9 Iron deficiency anemia, unspecified; R09.02 Hypoxemia; Z99.81 Dependence on supplemental oxygen; K57.90 Diverticulosis of intestine, part unspecified, without perforation or abscess without bleeding
CPT/HCPCS: 36415; 45378; 71045; 71046; 80048; 80053; 81001; 82550; 82553; 82607; 82728; 82746; 82948; 83540; 83690; 83880; 84466; 84484; 85014; 85018; 85025; 85045; 85610; 85730; 86850; 86900; 86920; 87635; 88305; 88307; 88309; 93306; 94640; 96360; 96361; 96367; 97139; 99251; 99284; J0694; J1100; J1170; J1756; J1940; J2001; J2270; J2405; J2710; J3010; J7030; J7050; J7121; P9016; Q0162